=== PATIENT | female | born 2000 | race Hispanic/Latino ===

== ENCOUNTER 2018-06-12 14:42 | Emergency (ER) | payer SELFPAY ==
[2018-06-12] MEDS ORDERED: NA CHLORIDE 0.9% 1,000 ML ONE ×2 (16:30→17:10)
[2018-06-12 16:45] LABS: Urine Blood NEGATIVE (NEG); Urine Glucose NEGATIVE (NEG); Urine Protein TRACE (NEG)
[2018-06-12 16:49] LABS: Absolute Lymphocytes (CBC) 0.3 K/uL (0.7-4.9); Absolute Monocytes 0.3 K/uL (0.1-1.3); Absolute Neutrophil 6.8 K/uL (1.8-8.0); Basophils % 0.7 % (0-1.3); Eosinophils % 0.1 % (0-4.4); Hematocrit 40.1 % (36.0-45.0); Lymphocytes % 3.8 % (15.3-44.8); MCH 28.4 pg (27.0-35.0); MCV 82.5 fL (80-100); MPV 10.5 fL (7.6-11.3); RBC Red Blood Cell Count 4.86 M/uL (3.86-4.86)
[2018-06-12 17:14] LABS: BUN Blood Urea Nitrogen 13 mg/dL (7-18); Bicarbonate 24 mmol/L (21-32); Glucose Level 91 mg/dL (74-106); HCG, Quantitative 13937 mIU/mL (1-3); Potassium 3.9 mmol/L (3.5-5.1); Sodium Level 140 mmol/L (136-145)
[2018-06-12 18:46] LABS: Urine Bacteria >50 /HPF (<20); Urine Culture Reflex Order NOT NEEDED; Urine Mucus 3+ /HPF (NONE SEEN); Urine RBC <5 /HPF (NONE SEEN)
--- NOTE | 2018-06-12 19:01 | EDPHYS ---
Physician Documentation [facility] Name: Caroline Valentin Age: 17 yrs Sex: Female : 2000 Arrival Date: 06/12/2018 Time: 14:47 Bed 30 Private MD: None, None ED Physician Jonas Reece HPI: 06/12 18:16 This 17 yrs old Female presents to ER via Ambulatory with complaints of 6wks snw , Vomiting. 18:16 Onset: The symptoms/episode began/occurred suddenly. Associated signs and symptoms: snw Pertinent positives: vomiting. The patient has not experienced similar symptoms in the past. initial ob appt scheduled for Thursday. . 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 - Social history:: Smoking status: Patient/guardian denies using tobacco. - Ebola Screening: : No symptoms or risks identified at this time. ROS: 18:16 Constitutional: Negative for fever, chills, and weight loss, Eyes: Negative for injury, snw pain, redness, and discharge, ENT: Negative for injury, pain, and discharge, Neck: Negative for injury, pain, and swelling, Cardiovascular: Negative for chest pain, palpitations, and edema, Respiratory: Negative for shortness of breath, cough, wheezing, and pleuritic chest pain. 18:16 Back: Negative for injury and pain, : Negative for injury, bleeding, discharge, and swelling, MS/Extremity: Negative for injury and deformity, Skin: Negative for injury, rash, and discoloration, Neuro: Negative for headache, weakness, numbness, tingling, and seizure. 18:16 Abdomen/GI: Positive for nausea and vomiting. Exam: 18:15 Constitutional: This is a well developed, well nourished patient who is awake, alert, snw and in no acute distress. Head/Face: Normocephalic, atraumatic. Eyes: Pupils equal round and reactive to light, extra-ocular motions intact. Lids and lashes normal. Conjunctiva and sclera are non-icteric and not injected. Cornea within normal limits. Periorbital areas with no swelling, redness, or edema. ENT: Nares patent. No nasal discharge, no septal abnormalities noted. Tympanic membranes are normal and external auditory canals are clear. Oropharynx with no redness, swelling, or masses, exudates, or evidence of obstruction, uvula midline. Mucous membranes moist. Neck: Trachea midline, no thyromegaly or masses palpated, and no cervical lymphadenopathy. Supple, full range of motion without nuchal rigidity, or vertebral point tenderness. No Meningismus. Chest/axilla: Normal chest wall appearance and motion. Nontender with no deformity. No lesions are appreciated. Respiratory: Lungs have equal breath sounds bilaterally, clear to auscultation and percussion. No rales, rhonchi or wheezes noted. No increased work of breathing, no retractions or nasal flaring. Abdomen/GI: Soft, non-tender, with normal bowel sounds. No distension or tympany. No guarding or rebound. No evidence of tenderness throughout. Back: No spinal tenderness. No costovertebral tenderness. Full range of motion. Skin: Warm, dry with normal turgor. Normal color with no rashes, no lesions, and no evidence of cellulitis. MS/ Extremity: Pulses equal, no cyanosis. Neurovascular intact. Full, normal range of motion. Neuro: Awake and alert, GCS 15, oriented to person, place, time, and situation. Cranial nerves II-XII grossly intact. Motor strength 5/5 in all extremities. Sensory grossly intact. Cerebellar exam normal. Normal gait. 18:15 Cardiovascular: Rate: tachycardic, Rhythm: regular, Heart sounds: normal. Vital Signs: 14:51 BP 122 / 70; Pulse 122; Resp 16; Temp 97.1; Pulse Ox 98% ; Weight 52.16 kg; Height 5 la1 ft. 2 in. (157.48 cm); 16:42 BP 102 / 74; Pulse 110; Resp 17; Pulse Ox 100% on R/A; rv 17:00 BP 104 / 69; Pulse 103; Resp 16; Pulse Ox 100% on R/A; rv 17:45 BP 99 / 67; Pulse 111; Resp 18; Pulse Ox 100% on R/A; rv 19:29 BP 100 / 77; Pulse 97; Resp 16; Pulse Ox 100% on R/A; rv 14:51 Body Mass Index 21.03 (52.16 kg, 157.48 cm) la1 MDM: 17:19 Patient medically screened. snw 19:09 Data reviewed: vital signs, nurses notes. Data interpreted: Pulse oximetry: on room air snw is 100 %. Interpretation: normal. Counseling: I had a detailed discussion with the patient and/or guardian regarding: the historical points, exam findings, and any diagnostic results supporting the discharge/admit diagnosis, lab results, the need for outpatient follow up, to return to the emergency department if symptoms worsen or persist or if there are any questions or concerns that arise at home. Special discussion: Based on the history and exam findings, there is no indication for further emergent testing or inpatient evaluation. I discussed with the patient/guardian the need to see the OB Gyne specialist for further evaluation of the symptoms. 06/12 15:37 Order name: Quantitative Hcg; Complete Time: 17:19 snw 06/12 15:37 Order name: Abo/rh Typing; Complete Time: 17:19 snw 06/12 15:37 Order name: Basic Metabolic Panel; Complete Time: 17:19 snw 06/12 15:37 Order name: CBC with Diff; Complete Time: 17:19 snw 06/12 16:37 Order name: Urine Dipstick--Ancillary (enter results); Complete Time: 16:59 eb 06/12 16:37 Order name: Urine --Ancillary (enter results); Complete Time: 16:59 eb 06/12 15:37 Order name: Urine Test (obtain specimen); Complete Time: 16:25 snw 06/12 15:37 Order name: IV Saline Lock; Complete Time: 16:25 snw 06/12 15:37 Order name: Labs collected and sent; Complete Time: 16:25 snw 06/12 15:37 Order name: NPO; Complete Time: 16:24 snw 06/12 18:00 Order name: Urine Microscopic Only; Complete Time: 18:57 snw 06/12 15:37 Order name: Urine Dipstick-Ancillary (obtain specimen); Complete Time: 16:24 snw Administered Medications: 16:22 Drug: NS 0.9% 1000 ml Route: IV; Rate: 1 bolus; Site: right antecubital; rv 18:10 Follow up: IV Status: Completed infusion; IV Intake: 1000ml rv 18:00 Drug: NS 0.9% 1000 ml Route: IV; Rate: 1 bolus; Site: right antecubital; rv 19:28 Follow up: IV Status: Completed infusion rv 19:07 Drug: Rocephin 1 grams Route: IV; Rate: calculated rate; Site: right antecubital; tl3 Delivery: Primary tubing; 19:08 Follow up: IV Status: Completed infusion; IV Intake: 20ml tl3 19:28 Follow up: Response: No adverse reaction; IV Status: Completed infusion rv Disposition: 06/13 09:53 Co-signature as Attending Physician, Jonas Reece MD I agree with the assessment and kdr plan of care. Disposition: 06/12/18 19:01 Discharged to Home. Impression: Urinary tract infection, site not specified, state, Vomiting, unspecified, Dehydration. - Condition is Stable. - Discharge Instructions: Dehydration, Adult, and Urinary Tract Infection, Rehydration, Adult. - Prescriptions for Augmentin 875- 125 mg Oral Tablet - take 1 tablet by ORAL route every 12 hours for 10 days; 20 tablet. Vitamin 27- 0.8 mg Oral Tablet - take 1 tablet by ORAL route once daily; 60 tablet. promethazine 25 mg Oral Tablet - take 1 tablet by ORAL route every 6 hours As needed; 20 tablet. - Medication Reconciliation Form, Thank You Letter, Antibiotic Education, Prescription Opioid Use form. - Follow up: Private Physician; When: 1 - 2 days; Reason: Recheck today's complaints, Continuance of care, Re-evaluation by your physician. Follow up: Emergency Department; When: As needed; Reason: Worsening of condition. Signatures: Dispatcher [employer] EDMS Jonas Reece MD MD kdr Therrien, Shelly, AUTOMOBILE SALESMAN-C AUTOMOBILE SALESMAN-CsnJosue Addison RN RN la1 Niyah Crandall, RN RN tl3 Petr Rutherford, RN RN rv Corrections: (The following items were deleted from the chart) 06/12 19:31 19:01 06/12/2018 19:01 Discharged to Home. Impression: Urinary tract infection, site rv not specified; state; Vomiting, unspecified; Dehydration. Condition is Stable. Forms are Medication Reconciliation Form, Thank You Letter, Antibiotic Education, Prescription Opioid Use. Follow up: Private Physician; When: 1 - 2 days; Reason: Recheck today's complaints, Continuance of care, Re-evaluation by your physician. Follow up: Emergency Department; When: As needed; Reason: Worsening of condition. ximena
--- NOTE | 2018-06-12 19:01 | ER ---
Nurse's Notes [facility] Name: Caroline Valentin Age: 17 yrs Sex: Female : 2000 Arrival Date: 06/12/2018 Time: 14:47 Bed 30 Private MD: None, None Diagnosis: Urinary tract infection, site not specified; state;Vomiting, unspecified;Dehydration Presentation: 06/12 14:50 Presenting complaint: Patient states: I am six weeks and have been vomiting la1 since this morning. Transition of care: patient was not received from another setting of care. Onset of symptoms was June 12, 2018. Risk Assessment: Do you want to hurt yourself or someone else? Patient reports no desire to harm self or others. Initial Sepsis Screen: Does the patient meet any 2 criteria? No. Patient's initial sepsis screen is negative. Does the patient have a suspected source of infection? No. Patient's initial sepsis screen is negative. Care prior to arrival: None. 14:50 Method Of Arrival: Ambulatory la1 14:50 Acuity: SHAWANDA 3 la1 Triage Assessment: 16:41 General: Appears in no apparent distress. comfortable, Behavior is calm, cooperative. rv GI: Reports nausea, vomiting. 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 - Social history:: Smoking status: Patient/guardian denies using tobacco. - Ebola Screening: : No symptoms or risks identified at this time. Screenin:41 Abuse screen: Denies threats or abuse. Denies injuries from another. Nutritional rv screening: No deficits noted. Tuberculosis screening: No symptoms or risk factors identified. Fall Risk None identified. Assessment: 16:40 General: Appears in no apparent distress. comfortable, Behavior is calm, cooperative. rv Pain: Complains of pain in lower abdomen Quality of pain is described as crampy. Neuro: Level of Consciousness is awake, alert, obeys commands, Oriented to person, place, time, situation. Cardiovascular: Capillary refill < 3 seconds. Respiratory: Airway is patent. GI: Abdomen is round. : No signs and/or symptoms were reported regarding the genitourinary system. EENT: No signs and/or symptoms were reported regarding the EENT system. Derm: Skin is intact. Musculoskeletal: No signs and/or symptoms reported regarding the musculoskeletal system. 18:12 Reassessment: Patient appears in no apparent distress at this time. rv Vital Signs: 14:51 BP 122 / 70; Pulse 122; Resp 16; Temp 97.1; Pulse Ox 98% ; Weight 52.16 kg; Height 5 la1 ft. 2 in. (157.48 cm); 16:42 BP 102 / 74; Pulse 110; Resp 17; Pulse Ox 100% on R/A; rv 17:00 BP 104 / 69; Pulse 103; Resp 16; Pulse Ox 100% on R/A; rv 17:45 BP 99 / 67; Pulse 111; Resp 18; Pulse Ox 100% on R/A; rv 19:29 BP 100 / 77; Pulse 97; Resp 16; Pulse Ox 100% on R/A; rv 14:51 Body Mass Index 21.03 (52.16 kg, 157.48 cm) la1 ED Course: 14:47 Patient arrived in ED. mr 14:47 None, None is Private Physician. mr 14:50 Triage completed. la1 14:51 Arm band placed on right wrist. la1 15:36 Tomasa Medrano FNP-C [facility]. snw 15:36 Jonas Reece MD is Attending Physician. snw 16:15 Inserted saline lock: 20 gauge in right antecubital area, using aseptic technique. rv Blood collected. 16:15 Initial lab(s) drawn, by oh, sent to lab. rv 16:25 CBC with Diff Sent. rv 16:25 Quantitative Hcg Sent. rv 16:25 Abo/rh Typing Sent. rv 16:41 Patient has correct armband on for positive identification. Bed in low position. Call rv light in reach. Side rails up X 1. Adult w/ patient. Pulse ox on. NIBP on. 19:30 No provider procedures requiring assistance completed. IV discontinued, bleeding rv controlled, No redness/swelling at site. Pressure dressing applied. Administered Medications: 16:22 Drug: NS 0.9% 1000 ml Route: IV; Rate: 1 bolus; Site: right antecubital; rv 18:10 Follow up: IV Status: Completed infusion; IV Intake: 1000ml rv 18:00 Drug: NS 0.9% 1000 ml Route: IV; Rate: 1 bolus; Site: right antecubital; rv 19:28 Follow up: IV Status: Completed infusion rv 19:07 Drug: Rocephin 1 grams Route: IV; Rate: calculated rate; Site: right antecubital; tl3 Delivery: Primary tubing; 19:08 Follow up: IV Status: Completed infusion; IV Intake: 20ml tl3 19:28 Follow up: Response: No adverse reaction; IV Status: Completed infusion rv Intake: 18:10 IV: 1000ml; Total: 1000ml. rv 19:08 IV: 20ml; Total: 1020ml. tl3 Outcome: 19:01 Discharge ordered by . snw 19:31 Discharged to home ambulatory. rv 19:31 Condition: improved 19:31 Discharge instructions given to patient, Instructed on discharge instructions, follow up and referral plans. medication usage, Demonstrated understanding of instructions, follow-up care, medications, Prescriptions given X 3. 19:31 Patient left the ED. rv Signatures: Tomasa Medrano, SALMON GILLNET VESSEL OPERATOR-C SALMON GILLNET VESSEL OPERATOR-Csnw Joyce Curtis Lee RN RN la1 Niyah Crandall, RN RN tl3 Petr Rutherford RN RN rv
[2018-06-12] MEDS ORDERED: CEFTRIAXONE/SWI 1gm 1 GM/10 ML SYR ONE (19:11)
[2018-06-12] MEDS ORDERED: PROMETHAZINE 25 MG/ML VIAL ONE (19:19)
== END 2018-06-12 19:31 | disposition home or self-care (01) ==
LOC: ER 14:42
DX: O21.9 Vomiting of pregnancy, unspecified (principal); O23.41 Unspecified infection of urinary tract in pregnancy, first trimester; O26.891 Other specified pregnancy related conditions, first trimester; E86.0 Dehydration; Z3A.01 Less than 8 weeks gestation of pregnancy
CPT/HCPCS: 36415; 80048; 81003; 81015; 81025; 84702; 85025; 86900; 86901; 96361; 96374; 99284; J0696; J2550; J7030

== ENCOUNTER 2018-09-02 08:57 | Emergency (ER) | payer SELFPAY ==
--- OUTSIDE RECORDS SUMMARY | 2018-09-02 08:59 | XMS REPORT ---
:2000 [facility] Address [address] [place] [address] Dr. Dickson [address] [place] [id number] Care Team Providers Name Role Phone Unavailable Unavailable Unavailable Problems This patient has no known problems. Allergies, Adverse Reactions, Alerts This patient has no known allergies or adverse reactions. Medications This patient has no known medications.
[2018-09-02 09:41] LABS: Urine Blood NEGATIVE (NEG); Urine Glucose 2+ (NEG); Urine Protein NEGATIVE (NEG); Urine Specific Gravity 1.025 (1.005-1.030)
[2018-09-02] MEDS ORDERED: NA CHLORIDE 0.9% 1,000 ML ONE (09:41)
[2018-09-02 09:52] LABS: Urine Bacteria >50 /HPF (<20); Urine Culture Reflex Order NOT NEEDED; Urine RBC NONE SEEN /HPF (NONE SEEN)
[2018-09-02 10:06] LABS: Absolute Lymphocytes (CBC) 0.9 K/uL (0.7-4.9); Absolute Monocytes 0.5 K/uL (0.1-1.3); Absolute Neutrophil 6.1 K/uL (1.8-8.0); Basophils % 0.3 % (0-1.3); Eosinophils % 0.7 % (0-4.4); Hematocrit 37.2 % (36.0-45.0); Lymphocytes % 12.3 % (15.3-44.8); MPV 10.2 fL (7.6-11.3); RBC Red Blood Cell Count 4.36 M/uL (3.86-4.86)
[2018-09-02] MEDS ORDERED: CEFTRIAXONE/SWI 1gm 1 GM/10 ML SYR ONE (10:27)
[2018-09-02 11:00] LABS: BUN Blood Urea Nitrogen 8 mg/dL (7-18); Bicarbonate 27 mmol/L (21-32); Glucose Level 93 mg/dL (74-106); HCG, Quantitative 20076 mIU/mL (1-3); Potassium 3.3 mmol/L (3.5-5.1); Sodium Level 140 mmol/L (136-145)
--- NOTE | 2018-09-02 11:11 | ER ---
Nurse's Notes [facility] Name: Caroline Valentin Age: 18 yrs Sex: Female : 2000 Arrival Date: 09/02/2018 Time: 09:02 Bed 19 Private MD: None, None Diagnosis: Urinary tract infection and 2nd trimester Presentation: 09/02 09:09 Risk Assessment: Do you want to hurt yourself or someone else? Patient reports no tw2 desire to harm self or others. Care prior to arrival: None. 09:14 Presenting complaint: Patient states: LLQ pain that began last night. Pt reports she is ss 19 weeks and has had no care. Transition of care: patient was not received from another setting of care. Onset of symptoms was September 01, 2018. Initial Sepsis Screen: Does the patient meet any 2 criteria? No. Patient's initial sepsis screen is negative. Does the patient have a suspected source of infection? No. Patient's initial sepsis screen is negative. 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 - Social history:: Smoking status: . - Ebola Screening: : Patient denies travel to an Ebola-affected area in the 21 days before illness onset. Screenin:07 Abuse screen: Denies threats or abuse. Nutritional screening: No deficits noted. tw2 Tuberculosis screening: No symptoms or risk factors identified. Fall Risk None identified. Assessment: 09:16 General: Appears uncomfortable, slender, Behavior is calm, cooperative, appropriate for tw2 age. Pain: Complains of pain in left lower quadrant. Neuro: Level of Consciousness is awake, alert, obeys commands, Oriented to person, place, time, situation. Cardiovascular: Heart tones S1 S2 Capillary refill < 3 seconds Patient's skin is warm and dry. Respiratory: Airway is patent Respiratory effort is even, unlabored, Respiratory pattern is regular, symmetrical, Breath sounds are clear bilaterally. GI: Abdomen is flat, Bowel sounds present X 4 quads. Reports lower abdominal pain. GI: Patient currently denies diarrhea, nausea, vomiting. : No signs and/or symptoms were reported regarding the genitourinary system. EENT: No signs and/or symptoms were reported regarding the EENT system. Derm: No signs and/or symptoms reported regarding the dermatologic system. Musculoskeletal: Range of motion: intact in all extremities. 10:20 Reassessment: No changes from previously documented assessment. General: Appears in no aj1 apparent distress. uncomfortable, Behavior is calm, cooperative, appropriate for age. Pain: Complains of pain in left lower quadrant Quality of pain is described as crampy. Neuro: Level of Consciousness is awake, alert, obeys commands, Oriented to person, place, time, situation. Cardiovascular: Patient's skin is warm and dry. Respiratory: Airway is patent Respiratory effort is even, unlabored, Respiratory pattern is regular, symmetrical. Derm: Skin is pink, warm \T\ dry. normal. Musculoskeletal: Circulation, motion, and sensation intact. Vital Signs: 09:14 Resp 15; Weight 52.16 kg; Height 5 ft. 2 in. (157.48 cm); Pain 7/10; ss 09:16 BP 115 / 95; Pulse 108; Temp 97.8(TE); tw2 10:22 BP 113 / 75; Pulse 89; Resp 18; Pulse Ox 100% on R/A; aj1 09:14 Body Mass Index 21.03 (52.16 kg, 157.48 cm) ED Course: 09:02 Patient arrived in ED. sb2 09:02 None, None is Private Physician. sb2 09:07 Adriana Morrell RN is Primary Nurse. tw2 09:08 Bed in low position. Call light in reach. Pulse ox on. NIBP on. tw2 09:09 Arm band placed on. tw2 09:14 T[facility] Medrano [facility]-C [facility] snw 09:14 Jonas Reece MD is Attending Physician. snw 09:15 Triage completed. ss 09:27 Urine Microscopic Only Sent. tw2 09:55 Report given to DONTRELL Cordero. tw2 10:12 Initial lab(s) drawn, by me, sent to lab. Urine collected: clean catch specimen, clear. mh5 Inserted saline lock: 20 gauge in right antecubital area, using aseptic technique. Blood collected. 10:13 Quantitative Hcg Sent. 5 10:13 Abo/rh Typing Sent. [facility] 10:13 Basic Metabolic Panel Sent. [facility] 10:13 CBC with Diff Sent. [facility] 10:13 Urine Culture Sent. 5 10:13 Urine Microscopic Only Sent. 5 11:07 OB Complete In Process Unspecified. EDMS 11:44 No provider procedures requiring assistance completed. IV discontinued, intact, ss bleeding controlled, No redness/swelling at site. Pressure dressing applied. Administered Medications: 10:13 Drug: NS 0.9% 1000 ml Route: IV; Rate: 1 bolus; Site: right antecubital; [facility] 10:18 Drug: Rocephin 1 grams Route: IV; Rate: calculated rate; Site: right antecubital; [facility] Outcome: 11:10 Discharge ordered by MD. snw 11:44 Discharged to home ambulatory, with family. ss 11:44 Condition: good 11:44 Discharge instructions given to patient, family, Instructed on discharge instructions, follow up and referral plans. medication usage, Demonstrated understanding of instructions, follow-up care, medications, Prescriptions given X 3. 11:45 Patient left the ED. ss Addendum: 09/05/2018 11:01 Addendum: Culture Results: Positive urine culture. No further action required. Bacteria i w sensitive to prescribed antibiotic. Signatures: Dispatcher [employer] Pita Ruiz, DONTRELL RN aj1 Tomasa Medrano, FINANCIAL RECORDING CLERK-C FINANCIAL RECORDING CLERK-Csnw Erin Landeros RN RN Julee Monaco RN RN ss Wise, Tara, RN RN tw2 Belkys Hoover Yulisa Woodward2
--- NOTE | 2018-09-02 11:11 | EDPHYS ---
Physician Documentation [facility] Name: Caroline Valentin Age: 18 yrs Sex: Female : 2000 Arrival Date: 09/02/2018 Time: 09:02 Bed 19 Private MD: None, None ED Physician Jonas Reece HPI: 09/02 09:39 This 18 yrs old Female presents to ER via Ambulatory with complaints of LEFT snw SIDE PAIN 19WK PG. 09:39 The patient presents with abdominal pain in the left lower quadrant. Onset: The snw symptoms/episode began/occurred suddenly. The symptoms radiate to left back. Associated signs and symptoms: none. The symptoms are described as sharp. Severity of pain: At its worst the pain was moderate. The patient has not experienced similar symptoms in the past. The patient has not recently seen a physician, Pt about 20 weeks , no care, states she from the baby's father and did not have money to see OB. 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 - Social history:: Smoking status: . - Ebola Screening: : Patient denies travel to an Ebola-affected area in the 21 days before illness onset. ROS: 09:37 Eyes: Negative for injury, pain, redness, and discharge, ENT: Negative for injury, snw pain, and discharge, Neck: Negative for injury, pain, and swelling, Cardiovascular: Negative for chest pain, palpitations, and edema, Respiratory: Negative for shortness of breath, cough, wheezing, and pleuritic chest pain, Back: Negative for injury and pain, : Negative for injury, bleeding, discharge, and swelling, MS/Extremity: Negative for injury and deformity, Skin: Negative for injury, rash, and discoloration, Neuro: Negative for headache, weakness, numbness, tingling, and seizure. 09:37 Constitutional: Positive for malaise. 09:37 Abdomen/GI: Positive for abdominal pain, of the left lower quadrant. Exam: 09:34 Constitutional: This is a well developed, well nourished patient who is awake, alert, snw and in no acute distress. + pallor Head/Face: Normocephalic, atraumatic. Eyes: Pupils equal round and reactive to light, extra-ocular motions intact. Lids and lashes normal. Conjunctiva and sclera are non-icteric and not injected. Cornea within normal limits. Periorbital areas with no swelling, redness, or edema. ENT: Nares patent. No nasal discharge, no septal abnormalities noted. Tympanic membranes are normal and external auditory canals are clear. Oropharynx with no redness, swelling, or masses, exudates, or evidence of obstruction, uvula midline. Mucous membranes moist. Neck: Trachea midline, no thyromegaly or masses palpated, and no cervical lymphadenopathy. Supple, full range of motion without nuchal rigidity, or vertebral point tenderness. No Meningismus. Chest/axilla: Normal chest wall appearance and motion. Nontender with no deformity. No lesions are appreciated. Respiratory: Lungs have equal breath sounds bilaterally, clear to auscultation and percussion. No rales, rhonchi or wheezes noted. No increased work of breathing, no retractions or nasal flaring. Abdomen/GI: Soft, Gravid with fundal ht c/w about 20 wk gestation. tender to left lower quad, with normal bowel sounds. No distension or tympany. No guarding or rebound. Back: No spinal tenderness. No costovertebral tenderness. Full range of motion. MS/ Extremity: Pulses equal, no cyanosis. Neurovascular intact. Full, normal range of motion. Neuro: Awake and alert, GCS 15, oriented to person, place, time, and situation. Cranial nerves II-XII grossly intact. Motor strength 5/5 in all extremities. Sensory grossly intact. Cerebellar exam normal. Normal gait. 09:34 Cardiovascular: Rate: tachycardic, Rhythm: regular. 09:34 Skin: Appearance: normal except for affected area, Color: pale. Vital Signs: 09:14 Resp 15; Weight 52.16 kg; Height 5 ft. 2 in. (157.48 cm); Pain 7/10; ss 09:16 BP 115 / 95; Pulse 108; Temp 97.8(TE); tw2 10:22 BP 113 / 75; Pulse 89; Resp 18; Pulse Ox 100% on R/A; aj1 09:14 Body Mass Index 21.03 (52.16 kg, 157.48 cm) ss MDM: 09:14 Patient medically screened. snw 11:11 Data reviewed: vital signs, nurses notes. Data interpreted: Pulse oximetry: on room air snw is 100 %. Counseling: I had a detailed discussion with the patient and/or guardian regarding: the historical points, exam findings, and any diagnostic results supporting the discharge/admit diagnosis. 11:12 Response to treatment: the patient's symptoms have mildly improved after treatment. snw Special discussion: Based on the patient's Hx, exam, and Dx evaluation, there is no indication for emergent surgery or inpatient Tx. It is understood by the patient/guardian that if the Sx's persist or worsen they need to return immediately for re-evaluation. Based on the history and exam findings, there is no indication for further emergent testing or inpatient evaluation. I discussed with the patient/guardian the need to see the OB Gyne specialist for further evaluation of the symptoms. 09/02 09:22 Order name: Urine Dipstick--Ancillary (enter results); Complete Time: 09:45 09/02 09:22 Order name: Urine --Ancillary (enter results); Complete Time: 09:45 09/02 09:23 Order name: Urine Culture 09/02 09:23 Order name: Urine Microscopic Only 09/02 09:25 Order name: Quantitative Hcg; Complete Time: 11:05 w 09/02 09:25 Order name: Abo/rh Typing; Complete Time: 11:05 w 09/02 09:22 Order name: Urine Dipstick-Ancillary (obtain specimen); Complete Time: 09:22 09/02 09:22 Order name: Urine Test (obtain specimen); Complete Time: 09:22 em09/02 09:25 Order name: Basic Metabolic Panel; Complete Time: 11:05 snw 09/02 09:25 Order name: CBC with Diff w 09/02 11:04 Order name: OB Complete; Complete Time: 14:12 EDMS 09/02 09:23 Order name: Urine Dipstick-Ancillary (obtain specimen); Complete Time: 09:27 w 09/02 09:25 Order name: IV Saline Lock; Complete Time: 10:13 snw 09/02 09:25 Order name: Labs collected and sent; Complete Time: 10: snw 09/02 09:25 Order name: NPO; Complete Time: : snw Administered Medications: 10:13 Drug: NS 0.9% 1000 ml Route: IV; Rate: 1 bolus; Site: right antecubital; aj1 10:18 Drug: Rocephin 1 grams Route: IV; Rate: calculated rate; Site: right antecubital; aj1 Disposition: 14:08 Co-signature as Attending Physician, Jonas Reece MD I agree with the assessment and kdr plan of care. Disposition: 09/02/18 11:10 Discharged to Home. Impression: Urinary tract infection and 2nd trimester . - Condition is Stable. - Discharge Instructions: Abdominal Pain During , Constipation, Adult, and Urinary Tract Infection, Second Trimester of , [id number]. - Prescriptions for Augmentin 875- 125 mg Oral Tablet - take 1 tablet by ORAL route every 12 hours for 10 days; 20 tablet. Vitamin 27- 0.8 mg Oral Tablet - take 1 tablet by ORAL route once daily; 60 tablet. Miralax 17 gram/dose Oral - take 1 packet by ORAL route once daily dilute powder in 8 ounces of water or juice; 1 box. - Medication Reconciliation Form, Thank You Letter, Antibiotic Education, Prescription Opioid Use form. - Follow up: Private Physician; When: 2 - 3 days; Reason: Recheck today's complaints, Continuance of care, Re-evaluation by your physician. Follow up: Emergency Department; When: As needed; Reason: Worsening of condition. Signatures: Dispatcher [employer] [facility] Pita Philip, RN RN aj1 Jonas Reece MD MD kdr Therrien, Shelly, DIRECTOR EXTERNAL COMMUNICATIONS-C DIRECTOR EXTERNAL COMMUNICATIONS-Kai Chavez em1 Julee Monaco RN RN ss Wise, Tara, RN RN tw2 Corrections: (The following items were deleted from the chart) 11:04 10:16 OB Limited+US.RAD.BRZ ordered. [facility] 11:45 11:10 09/02/2018 11:10 Discharged to Home. Impression: Urinary tract infection and 2nd ss trimester . Condition is Stable. Discharge Instructions: Abdominal Pain During , and Urinary Tract Infection, Second Trimester of , [id number]. Prescriptions for Augmentin 875-125 mg Oral Tablet - take 1 tablet by ORAL route every 12 hours for 10 days; 20 tablet, Vitamin 27-0.8 mg Oral Tablet - take 1 tablet by ORAL route once daily; 60 tablet. and Forms are Medication Reconciliation Form, Thank You Letter, Antibiotic Education, Prescription Opioid Use. Follow up: Private Physician; When: 2 - 3 days; Reason: Recheck today's complaints, Continuance of care, Re-evaluation by your physician. Follow up: Emergency Department; When: As needed; Reason: Worsening of condition. snw
--- NOTE | 2018-09-02 11:41 | RAD REPORT ---
EXAM DESCRIPTION: US - OB Complete - ir CLINICAL HISTORY: , abdominal pain COMPARISON: None. FINDINGS: A single cephalic presenting gestation is identified. The 4 chamber heart view has a jeff l appearance. Heart rate normal. The intracranial contents and spine are grossly normal. A lef t-sided stomach bubble is seen with normal appearing bladder and kidneys. The 3 vessel cord, inserti on site and anterior abdominal wall have normal appearance. Anatomic assessment was somewhat limited by age. Anatomy is as expected for 17 week gestational age. measurements are as follows: BPD:4.01 Centimeters 18 weeks 1 day HC:14.62 Centimeters 17 weeks 6 days AC:11.98 Centimeters 17 weeks 5 days HL:2.26 Centimeters 17 weeks 0 days FL:2.38 Centimeters 17 weeks 1 day The estimated gestational age (EGA) is 17 weeks 4 days with an DOROTHY of 02/06/2019. ratios are n ormal or within acceptable limits. The placenta is grade 0, posterior in location. No low-lying or pl acenta previa. The amniotic fluid volume is normal. No maternal adnexa abnormality. Prominent peristalsing bowel noted. IMPRESSION: 1. Single, cephalic gestation with an EGA of 17 weeks 4 days and an DOROTHY of the 9. 2. No abnormalities are identifiable. Anatomy is as expected for 17 week gestational age. ratios are normal or within acceptable limits. 3. Grade 0, posterior placenta with no low-lying or placenta previa. 4. Amniotic fluid volume is normal.
== END 2018-09-02 11:45 | disposition home or self-care (01) ==
LOC: ER 08:57
DX: O23.42 Unspecified infection of urinary tract in pregnancy, second trimester (principal); Z3A.20 20 weeks gestation of pregnancy
CPT/HCPCS: 36415; 76805; 80048; 81003; 81015; 81025; 84702; 85025; 86900; 86901; 87077; 87086; 87088; 87186; 96374; 99284; J0696; J7030

== ENCOUNTER 2018-10-29 09:41 | Emergency (ER) | payer MEDICAID, OTHER ==
--- OUTSIDE RECORDS SUMMARY | 2018-10-29 09:43 | XMS REPORT ---
:2000 [facility] Address [address] [place] [address] Dr. Dickson [address] [place] [id number] Care Team Providers Name Role Phone Unavailable Unavailable Unavailable Problems This patient has no known problems. Allergies, Adverse Reactions, Alerts This patient has no known allergies or adverse reactions. Medications This patient has no known medications.
[2018-10-29 10:37] LABS: Urine Blood NEGATIVE (NEG); Urine Glucose NEGATIVE (NEG); Urine Protein NEGATIVE (NEG); Urine Specific Gravity 1.025 (1.005-1.030); Urine pH 7.5 (5.0-7.0)
[2018-10-29] MEDS ORDERED: MORPHINE 2 MG/ML SYR ONE (10:37)
[2018-10-29] MEDS ORDERED: ONDANSETRON 4 MG/2 ML VIAL ONE (10:37)
[2018-10-29 10:40] LABS: Urine Bacteria 20-50 /HPF (<20); Urine Culture Reflex Order REFLEXED; Urine RBC <5 /HPF (NONE SEEN)
[2018-10-29 10:43] LABS: Absolute Lymphocytes (CBC) 1.8 K/uL (0.7-4.9); Absolute Monocytes 0.6 K/uL (0.1-1.3); Absolute Neutrophil 5.3 K/uL (1.8-8.0); Basophils % 0.3 % (0-1.3); Eosinophils % 1.1 % (0-4.4); Hematocrit 31.9 % (36.0-45.0); MPV 10.3 fL (7.6-11.3); Monocytes % 8.2 % (3.3-12.3); RBC Red Blood Cell Count 3.85 M/uL (3.86-4.86)
[2018-10-29 10:58] LABS: ALT/SGPT 20 U/L (12-78); AST/SGOT 17 U/L (15-37); Alkaline Phosphatase 76 U/L (45-117); BUN Blood Urea Nitrogen 8 mg/dL (7-18); Bicarbonate 26 mmol/L (21-32); Bilirubin Direct < 0.1 mg/dL (0-0.2); Bilirubin Total 0.2 mg/dL (0.2-1.0); Glucose Level 82 mg/dL (74-106); Lipase 159 U/L (73-393); Potassium 3.8 mmol/L (3.5-5.1); Sodium Level 141 mmol/L (136-145)
--- NOTE | 2018-10-29 11:21 | RAD REPORT ---
EXAM DESCRIPTION: US - Abdomen Exam Limited - 10/29/2018 11:02 am CLINICAL HISTORY: Abdominal pain. Right flank pain COMPARISON: None. FINDINGS: The gallbladder is contracted. The patient was not NPO. This limits evaluation. A gallstone is not seen. Gallbladder wall is not thickened. Biliary tree is normal caliber. Mild right hydronephrosis is seen. IMPRESSION: Grossly normal gallbladder ultrasound Mild right hydronephrosis. Given the this can be a normal finding. Pathology can also resul t in this appearance
--- NOTE | 2018-10-29 11:57 | ER ---
Nurse's Notes [facility] Name: Caroline Valentin Age: 18 yrs Sex: Female : 2000 Arrival Date: 10/29/2018 Time: 09:43 Bed 19 Private MD: Diagnosis: Muscle spasm of back;Urinary tract infection, site not specified;Other abdominal pain Presentation: 10/29 10:12 Presenting complaint: Patient states: right abd pain, right flank pain, radiating to iw right leg X 3 days denies injury, denies urinary symptoms, denies vaginal bleeding, denies n/v, pt is approx 6 months . Transition of care: patient was not received from another setting of care. Onset of symptoms was October 26, 2018. Risk Assessment: Do you want to hurt yourself or someone else? Patient reports no desire to harm self or others. Initial Sepsis Screen: Does the patient meet any 2 criteria? No. Patient's initial sepsis screen is negative. Does the patient have a suspected source of infection? No. Patient's initial sepsis screen is negative. Care prior to arrival: None. 10:12 Method Of Arrival: Wheelchair iw 10:12 Acuity: SHAWANDA 3 iw Triage Assessment: 12:13 General: Appears in no apparent distress. Behavior is calm, cooperative. 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 - Social history:: Smoking status: Patient/guardian denies using tobacco. - Ebola Screening: : Patient negative for fever greater than or equal to 101.5 degrees Fahrenheit, and additional compatible Ebola Virus Disease symptoms Patient denies exposure to infectious person Patient denies travel to an Ebola-affected area in the 21 days before illness onset No symptoms or risks identified at this time. Screenin:12 Abuse screen: Denies threats or abuse. Denies injuries from another. Nutritional iw screening: No deficits noted. Tuberculosis screening: No symptoms or risk factors identified. Fall Risk None identified. Assessment: 10:30 General: Appears uncomfortable, Behavior is cooperative. Pain: Complains of pain in iw right lower quadrant and right upper quadrant and right flank Pain radiates to right low back. Neuro: Level of Consciousness is awake, alert, obeys commands, Moves all extremities. Full function. Cardiovascular: Patient's skin is warm and dry. Respiratory: Respiratory effort is even, unlabored, Respiratory pattern is regular. GI: Reports lower abdominal pain. : Denies burning with urination, vaginal bleeding. Derm: Skin is intact, is healthy with good turgor. Musculoskeletal: Range of motion: intact in all extremities. 12:12 Reassessment: Patient appears in no apparent distress at this time. Patient and/or iw family updated on plan of care and expected duration. Pain level reassessed. Patient is alert, oriented x 3, equal unlabored respirations, skin warm/dry/pink. Patient states feeling better. Patient states symptoms have improved. Vital Signs: 10:16 BP 119 / 83; Pulse 80; Resp 16 S; Pulse Ox 100% on R/A; Weight 54.43 kg; Height 5 ft. 2 iw in. (157.48 cm); Pain 9/10; 10:16 Body Mass Index 21.95 (54.43 kg, 157.48 cm) iw Vitals: 11:56 Heart Tones 160 bpm. iw ED Course: 09:43 Patient arrived in ED. rg4 10:02 Edgard Lopez PA is PHCP. [facility] 10:02 Jonas Reece MD is Attending Physician. [facility] 10:03 Mj Cerrato LVN is Primary Nurse. em 10:15 Triage completed. iw 10:18 Arm band placed on. iw 11:02 US Abdomen Limited In Process Unspecified. EDMS 12:12 Patient has correct armband on for positive identification. iw 12:12 No provider procedures requiring assistance completed. IV discontinued, intact, iw bleeding controlled, No redness/swelling at site. Pressure dressing applied. Administered Medications: 10:36 Drug: morphine 2 mg Route: IVP; Site: right antecubital; iw 12:16 Follow up: Response: No adverse reaction; Pain is decreased iw 10:36 Drug: Zofran 4 mg Route: IVP; Site: right antecubital; iw 12:16 Follow up: Response: No adverse reaction iw Outcome: 11:57 Discharge ordered by . kee 12:13 Discharged to home via wheelchair, with family. iw 12:13 Condition: good 12:13 Discharge instructions given to patient, family, Instructed on discharge instructions, follow up and referral plans. medication usage, Demonstrated understanding of instructions, follow-up care, medications, Prescriptions given X 2. 12:13 Patient left the ED. iw Signatures: Dispatcher [employer] EDEdgard Hunter PA PA jmm Munoz, Edgar, TRIAL COURT JUDGE TRIAL COURT JUDGE Erin Murdock, RN RN Anisha Menchaca rg4
--- NOTE | 2018-10-29 11:57 | EDPHYS ---
Physician Documentation [facility] Name: Caroline Valentin Age: 18 yrs Sex: Female : 2000 Arrival Date: 10/29/2018 Time: 09:43 Bed 19 Private MD: ED Physician Jonas Reece HPI: 10/29 10:10 This 18 yrs old Female presents to ER via Wheelchair with complaints of Flank jmm Pain, Leg Pain. 10:10 The patient complains of pain in the right flank. Onset: The symptoms/episode jmm began/occurred gradually, 3 day(s) ago. Modifying factors: the symptoms are aggravated by movement, palpation/percussion. Associated signs and symptoms: Pertinent negatives: diarrhea, dysuria, fever, hematuria, vomiting. This is a 18 year old female approx 25 weeks IUP that presents to the ED with complaints of right flank pain which radiates down her right leg. Denies numbness or weakness to the leg. Denies urinary complaints. Denies fever, denies vomiting, denies diarrhea. Patient also complaints of right sided abdominal pain. The patient stated she was previously on bedrest due to lower abdominal and pelvic pain during her . Patient states she began to feel better 3 days ago and began regular activity. Pain to her back began at the same time along with abdominal pain. . 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 - Social history:: Smoking status: Patient/guardian denies using tobacco. - Ebola Screening: : Patient negative for fever greater than or equal to 101.5 degrees Fahrenheit, and additional compatible Ebola Virus Disease symptoms Patient denies exposure to infectious person Patient denies travel to an Ebola-affected area in the 21 days before illness onset No symptoms or risks identified at this time. ROS: 10:16 Constitutional: Negative for fever, chills, and weight loss, Cardiovascular: Negative jmm for chest pain, palpitations, and edema, Respiratory: Negative for shortness of breath, cough, wheezing, and pleuritic chest pain. 10:16 Abdomen/GI: Positive for abdominal pain, Negative for vomiting, diarrhea. 10:16 Back: Positive for pain with movement, flank pain. 10:16 MS/extremity: Positive for pain. 10:16 All other systems are negative. Exam: 10:16 Constitutional: This is a well developed, well nourished patient who is awake, alert, jmm and in no acute distress. Head/Face: atraumatic. Eyes: EOMI, no conjunctival erythema appreciated ENT: Moist Mucus Membranes Neck: Trachea midline, Supple Chest/axilla: Normal chest wall appearance and motion. 10:16 Cardiovascular: Rate: normal, Rhythm: regular. 10:16 Abdomen/GI: Inspection: gravid appearance, is noted, Bowel sounds: normal, Palpation: soft, mild abdominal tenderness, in the right upper quadrant and right lower quadrant. 10:16 Back: CVA tenderness, that is moderate, is noted on the right, muscle spasm, is appreciated in the right low back. 10:16 Musculoskeletal/extremity: ROM: intact in all extremities. 10:16 Skin: Appearance: Color: normal in color. 10:16 Neuro: Orientation: is normal, Mentation: is normal, Memory: is normal. 10:16 Psych: Behavior/mood is pleasant, cooperative. Vital Signs: 10:16 BP 119 / 83; Pulse 80; Resp 16 S; Pulse Ox 100% on R/A; Weight 54.43 kg; Height 5 ft. 2 iw in. (157.48 cm); Pain 9/10; 10:16 Body Mass Index 21.95 (54.43 kg, 157.48 cm) MDM: 10:10 Patient medically screened. [facility] 11:55 Data reviewed: vital signs, nurses notes. Counseling: I had a detailed discussion with [facility] the patient and/or guardian regarding: the historical points, exam findings, and any diagnostic results supporting the discharge/admit diagnosis, the need for outpatient follow up, to return to the emergency department if symptoms worsen or persist or if there are any questions or concerns that arise at home. 11:55 ED course: HPI appears consistent with musculoskeletal pain. Pain is radiated to the [facility] right leg. I do not suspect cord compression or cauda equina. Extensor hallucis longus intact. CBC normal. Patient has no GI symptoms. US is negative. I discussed signs and symptoms of appendicitis along with strict return precautions do to the patient complaint of right sided pain along with strict return precautions. Patient will closely follow up with hopper feeder and resume bedrest. . 10/29 10:11 Order name: Basic Metabolic Panel; Complete Time: 10:59 [facility] 10/29 10:11 Order name: CBC with Diff; Complete Time: 10:58 [facility] 10/29 10:11 Order name: Creatinine for Radiology; Complete Time: 10:58 [facility] 10/29 10:11 Order name: Hepatic Function; Complete Time: 10:59 [facility] 10/29 10:11 Order name: Lipase; Complete Time: 10:59 [facility] 10/29 10:12 Order name: Urine Microscopic Only; Complete Time: 10:42 [facility] 10/29 10:11 Order name: IV Saline Lock; Complete Time: 10:35 [facility] 10/29 10:11 Order name: Labs collected and sent; Complete Time: 10:35 [facility] 10/29 10:11 Order name: US Abdomen Limited; Complete Time: 11:22 [facility] 10/29 10:29 Order name: Urine Dipstick--Ancillary (enter results); Complete Time: 10:42 10/29 10:29 Order name: Urine --Ancillary (enter results); Complete Time: 10:42 10/29 10:42 Order name: Urine Culture [facility] 10/29 10:11 Order name: Urine Dipstick-Ancillary (obtain specimen); Complete Time: 10:21 [facility] 10/29 10:12 Order name: Heart Tones; Complete Time: 11:42 [facility] Administered Medications: 10:36 Drug: morphine 2 mg Route: IVP; Site: right antecubital; iw 12:16 Follow up: Response: No adverse reaction; Pain is decreased iw 10:36 Drug: Zofran 4 mg Route: IVP; Site: right antecubital; iw 12:16 Follow up: Response: No adverse reaction Disposition: 10/29/18 11:57 Discharged to Home. Impression: Muscle spasm of back, Urinary tract infection, site not specified, Other abdominal pain. - Condition is Stable. - Discharge Instructions: Muscle Cramps and Spasms, Sciatica, and Urinary Tract Infection. - Prescriptions for Cyclobenzaprine 10 mg Oral Tablet - take 1 tablet by ORAL route every 8 hours As needed; 30 tablet. Macrobid 100 mg Oral Capsule - take 1 capsule by ORAL route every 12 hours for 7 days; 14 capsule. - Medication Reconciliation Form, Thank You Letter, Antibiotic Education, Prescription Opioid Use form. - Follow up: Private Physician; When: 1 - 2 days; Reason: Recheck today's complaints, Continuance of care, Re-evaluation by your physician. - Notes: Please follow up with your [facility]LE[facility]RA[facility] PULP on Thursday. Due to your abdominal pain,Please resume bedrest. Please return to the Emergency Department if you develop. -Fever -Worsening Abdominal Pain -Decreased appetite -Vomiting -Diarrhea -Pelvic Pain -Vaginal Bleeding Addendum: 11/01/2018 08:21 Co-signature as Attending Physician, Jonas Reece MD I agree with the assessment and k dr plan of care. Signatures: Dispatcher [employer] EDMS Jonas Reece MD MD [facility] Edgard Lopez PA PA jmm Williams, Irene, RN RN iw Corrections: (The following items were deleted from the chart) 10/29 12:13 11:57 10/29/2018 11:57 Discharged to Home. Impression: Muscle spasm of back; Urinary iw tract infection, site not specified; Other abdominal pain. Condition is Stable. Forms are Medication Reconciliation Form, Thank You Letter, Antibiotic Education, Prescription Opioid Use. Follow up: Private Physician; When: 1 - 2 days; Reason: Recheck today's complaints, Continuance of care, Re-evaluation by your physician. [facility] 15:24 10:10 This is a 18 year old female approx 25 weeks IUP that presents to the ED with [facility] complaints of right flank pain which radiates down her right leg. Denies numbness or weakness to the leg. Denies urinary complaints. Denies fever, denies vomiting, denies diarrhea. Patient also complaints of right sided abdominal pain. . [facility]
== END 2018-10-29 12:13 | disposition home or self-care (01) ==
LOC: ER 09:41
DX: O23.42 Unspecified infection of urinary tract in pregnancy, second trimester (principal); Z3A.00 Weeks of gestation of pregnancy not specified; M62.830 Muscle spasm of back
CPT/HCPCS: 36415; 76705; 80048; 80076; 81003; 81015; 81025; 83690; 85025; 87086; 87088; 96374; 96375; 99283; J2270; J2405

== ENCOUNTER 2019-02-16 13:21 | Emergency (ER) | payer MEDICAID ==
--- OUTSIDE RECORDS SUMMARY | 2019-02-16 13:24 | XMS REPORT ---
:2000 [facility] Address [address] [place] [address] Dr. Dickson [address] [place] [address] Care Team Providers Name Role Phone Unavailable Unavailable Unavailable Problems This patient has no known problems. Allergies, Adverse Reactions, Alerts This patient has no known allergies or adverse reactions. Medications This patient has no known medications.
--- OUTSIDE RECORDS SUMMARY | 2019-02-16 13:25 | XMS REPORT | Summary of Care ---
:2000 Author Organization [facility] Address [address] [place] [id number] Care Team Providers Name Role Phone Jacqueline Chandra [facility] Primary Care Provider Simran Zavaleta Insurance Hmo Encounter Details Date Type Department Care Team Description 02/15/2019 Patient Secure [facility]- Jacqueline Chandra [place] [facility] [address] [facility] [address] [place] [address] [place], [place] [id number] Allergies No Known Allergiesdocumented as of this encounter (statuses as of 02/15/2019) Medications Medication Sig Dispensed Refills Start Date End Date Status vit Take 1 Packet by 30 Each 6 09/06/2018 Active 96-shfq-zkmtd-dha mouth daily. (SELECT-OB + DHA) 29 mg iron-1 mg -250 mg combo packIndications: High risk , antepartum ferrous sulfate 325 mg Take 1 tablet by 60 tablet 3 01/24/2019 Active (65 mg iron) mouth 2 (two) tabletIndications: times daily. Anemia of mother in , antepartum ascorbic acid, vitamin Take 1 tablet by 90 tablet 3 01/24/2019 Active C, 500 mg mouth 3 (three) tabletIndications: times daily. Anemia of mother in , antepartum vitamin w/FA Take 1 tablet by 100 tablet 3 01/25/2019 Active tabletIndications: mouth daily. Primigravida in third trimester, High risk , antepartum, Rubella non-immune status, antepartum, Full-term premature rupture of membranes with onset of labor within 24 hours of rupture, 37 weeks gestation of , Anemia, antepartum, third trimester, Liveborn infant, of [place] , born in hospital by vaginal delivery docusate calcium 240 Take 1 capsule by 30 capsule 1 01/25/2019 Active mg capsuleIndications: mouth once daily Primigravida in third as needed for trimester, High risk Constipation. , antepartum, Rubella non-immune status, antepartum, Full-term premature rupture of membranes with onset of labor within 24 hours of rupture, 37 weeks gestation of , Anemia, antepartum, third trimester, Liveborn infant, of [place] , born in hospital by vaginal delivery ferrous sulfate 325 mg Take 1 tablet by 60 tablet 2 01/25/2019 Active (65 mg iron) mouth 2 (two) tabletIndications: times daily. Primigravida in third trimester, High risk , antepartum, Rubella non-immune status, antepartum, Full-term premature rupture of membranes with onset of labor within 24 hours of rupture, 37 weeks gestation of , Anemia, antepartum, third trimester, Liveborn infant, of [place] , born in hospital by vaginal delivery ibuprofen 600 mg Take 1 tablet by 30 tablet 1 01/25/2019 Active tabletIndications: mouth every 6 Primigravida in third (six) hours as trimester, High risk needed for Pain , antepartum, (scale 1-3) or Rubella non-immune Pain (scale 4-6) status, antepartum, (Pain). Take with Full-term premature food or milk. rupture of membranes with onset of labor within 24 hours of rupture, 37 weeks gestation of , Anemia, antepartum, third trimester, Liveborn infant, of [place] , born in hospital by vaginal delivery documented as of this encounter (statuses as of 02/15/2019) Active Problems Problem Noted Date ROM (rupture of membranes), premature 01/24/2019 37 weeks gestation of 01/24/2019 Anemia, antepartum, third trimester 01/24/2019 Liveborn , of [place] , born in hospital by vaginal 2018 delivery Muscle spasm 11/02/2018 Rubella non-immune status, antepartum 09/07/2018 Overview: Address pp Primigravida in third trimester 09/06/2018 High risk , antepartum 09/06/2018 documented as of this encounter (statuses as of 02/15/2019) Resolved Problems Problem Noted Date Resolved Date Urinary tract infection without hematuria, site unspecified 11/22/20182018 documented as of this encounter (statuses as of 02/15/2019) Immunizations Name Administration Dates Next Due DTAP 06/27/2002 HEPATITIS A 06/19/2005 HPV 03/03/2011, 11/21/2010 MMR 01/25/2019, 06/27/2002 PPD (TB) 06/19/2004 Polio (IPV/OPV) 06/27/2002 TDAP (ADACEL) VACCINE 11/30/2018 documented as of this encounter Social History Tobacco Use Types Packs/Day Years Used Date Never Smoker Smokeless Tobacco: Never Used Alcohol Use Drinks/Week oz/Week Comments No Sex Assigned at Date Recorded Not on file Job Start Date Occupation Industry Not on file Not on file Not on file Travel History Travel Start Travel End No recent travel history available. documented as of this encounter Last Filed Vital Signs Not on filedocumented in this encounter Plan of Treatment Date Type Specialty Care Team Description 03/07/2019 Office Visit [facility] Jacqueline Chandra, SALES [employer]OUNT [employer]OCI[employer] [address] [place] [address] [phone] Health Maintenance Due Date Last Done Comments MENINGOCOCCAL B VACCINES (1 of 2008 2 - Risk Bexsero 2-dose series) HPV VACCINES (3 - Female 05/26/2011 03/03/2011, 2-dose series) 11/21/2010 INFLUENZA VACCINE 03/20/2019 CHLAMYDIA SCREENING 01/20/2020 01/19/2019, 09/06/2018 DTaP,Tdap,and Td Vaccines (3 - 11/30/2028 11/30/2018, Td) 06/27/2002 MENINGOCOCCAL VACCINE Aged Out No longer eligible based on patient's age to complete this topic PNEUMOCOCCAL 0-64 YEARS Aged Out No longer eligible based COMBINED SERIES on patient's age to complete this topic documented as of this encounter Results Not on filedocumented in this encounter Insurance Payer Benefit Plan / Subscriber ID Effective Phone Address Type Group Dates [place] xxxxxxxxx 2018-[place] [id number] MA[place]GED MEDICAID [place], [place] documented as of this encounter Advance Directives Name Relationship Healthcare Agent Communication Relationship Araceli Srivastava Mother Primary healthcare agent
--- OUTSIDE RECORDS SUMMARY | 2019-02-16 13:25 | XMS REPORT | Summary of Care ---
:2000 Author Organization [facility] Address [address] [place] [address] Care Team Providers Name Role Phone Jacqueline Chandra MAIL [employer]ERKS SUPERVISOR Primary Care Provider Simran Zavaleta Valerie Insurance Hmo Encounter Details Date Type Department Care Team Description [facility] High risk , Msg Reyna R, MAIL CLERKS SUPERVISOR antepartum (Primary [address]) [facility] [address] [place], [place] [phone] Allergies No Known Allergiesdocumented as of this encounter (statuses as of 02/15/2019) Medications Medication Sig Dispensed Refills Start Date End Date Status vit Take 1 Packet by 30 Each 6 09/06/2018 Active 03-owsf-ejqvf-dha mouth daily. (SELECT-OB + DHA) 29 mg [...] of , Anemia, antepartum, third trimester, Liveborn , of [place] , born in [...] of , Anemia, antepartum, third trimester, Liveborn , of [place] , born in [...] of , Anemia, antepartum, third trimester, Liveborn , of [place] , born in [...] 03/07/2019 Office Visit [facility] Jacqueline Chandra, MAIL CLERKS SUPERVISOR [address] [place] [address] [phone] Health Maintenance Due Date Last Done Comments [...] Results Not on filedocumented in this encounter Visit Diagnoses Diagnosis High risk , antepartum - Primary documented in this encounter Insurance Payer Benefit Plan / Subscriber ID Effective Phone Address Type Group Dates [place] xxxxxxxxx 2018-[place] [id number] MA[place]ED MEDICA[place] documented as of this encounter Advance Directives Name Relationship Healthcare Agent Communication Relationship Araceli Srivastava Mother Primary healthcare agent
--- OUTSIDE RECORDS SUMMARY | 2019-02-16 13:25 | XMS REPORT | Summary of Care ---
:2000 Author Organization [facility] Address [address] [place] [address] Care Team Providers Name Role Phone Jacqueline Chandra Primary Care Provider Simran Zavaleta Insurance Hmo Reason for Visit Reason Comments Care (Routine) Status Reason Specialty Diagnoses / Referred By Referred To Procedures Contact Contact New Request OB Satellites Diagnoses Primigravida in third trimester High risk , antepartum Rubella non-immune status, antepartum Full-term premature rupture of membranes with onset of labor within 24 hours of rupture 37 weeks gestation of Sona Reyes MD Anemia, antepartum, third trimester Liveborn infant, of [place] , born in hospital by vaginal delivery [address] [place] [address] Procedures DISCHARGE FOLLOW-UP: LIGHT INDUSTRIAL SUPER[place] [address] Encounter Details Date Type Department Care Team Description 02/14/2019 Routine [facility]- Jacqueline Chandra care and examination of lactating mother (Primary Dx); Visit LESLIE Alonzo Dysuria [address] [place] [address] [place], [place] [address] [place], [place] [phone] [address] [phone] Allergies No Known Allergiesdocumented as of this encounter (statuses as of 02/14/2019) Medications Medication Sig Dispensed Refills Start Date End Date Status vit Take 1 Packet by 30 Each 6 09/06/2018 Active 13-rmqz-vdtnm-dha mouth daily. (SELECT-OB + DHA) 29 mg [...] as of this encounter (statuses as of 02/14/2019) Active Problems Problem Noted Date ROM (rupture of membranes), premature 01/24/2019 37 weeks gestation of 01/24/2019 Anemia, antepartum, third trimester 01/24/2019 Liveborn infant, of [place] , born in hospital by vaginal 2018 delivery Muscle spasm 11/02/2018 Rubella non-immune status, antepartum 09/07/2018 Overview: Address pp Primigravida in third trimester 09/06/2018 High risk , antepartum 09/06/2018 documented as of this encounter (statuses as of 02/14/2019) Resolved Problems Problem Noted Date Resolved Date Urinary tract infection without hematuria, site unspecified 11/22/20182018 documented as of this encounter (statuses as of 02/14/2019) Immunizations Name Administration Dates Next Due DTAP [...] of this encounter Last Filed Vital Signs Vital Sign Reading Time Taken Comments Blood Pressure 113/80 02/14/2019 10:27 AM CDT Pulse 109 02/14/2019 10:27 AM CDT Temperature 36.5 C (97.7 F) 02/14/2019 10:27 AM CDT Respiratory Rate 16 02/14/2019 10:27 AM CDT Oxygen Saturation - - Inhaled Oxygen Concentration - - Weight 55.8 kg (123 lb 2 oz) 02/14/2019 10:27 AM CDT Height 157.5 cm (5' 2") 02/14/2019 10:27 AM CDT Body Mass Index 22.52 02/14/2019 10:27 AM CDT documented in this encounter Progress Notes Jcaqueline Chandra, ELECTRONICS UTILITY WORKER - 02/14/2019 10:15 AM CDT Chief complaint: Chief Complaint Patient presents with Care HPI The patient is here for a routine PP visit. Patient delivered male infant via on 01/24/2019. She has no complaints today. She states that she is her infant, is bonding well, and coping well with less sleep. She reports that she has no pain, small lochia, and denies all s/s of PP depression. She wants Nexplanon for PP contraception. Histories OB History Para Term AB Living 1 1 1 0 0 1 SAB TAB Ectopic Multiple Live Births 0 0 0 0 1 # Outcome Date GA Lbr Otto/2nd Weight Sex Delivery Anes PTL Lv 1 Term 01/24/19 37w4d 7 lb 9 oz (3.43 kg) M NORMAL SPONT EPI N MAIKEL Past Medical History: Diagnosis Date Anemia, antepartum, third trimester 01/24/2019 Family History Problem Relation Age of Onset Hypertension Mother No Significant Medical Problems Father No Significant Medical Problems Sister No Significant Medical Problems Brother No Significant Medical Problems Maternal Aunt No Significant Medical Problems Maternal Uncle No Significant Medical Problems Paternal Aunt No Significant Medical Problems Paternal Uncle No Significant Medical Problems Maternal Grandmother No Significant Medical Problems Maternal Grandfather Diabetes Paternal Grandmother No Significant Medical Problems Paternal Grandfather Family Status Relation Name Status Mo Alive Fa Alive Sis Alive Bro Alive MAunt Alive MUnc Alive PAunt Alive PUnc MGMo MGFa PGMo Alive PGFa Alive No past surgical history on file. Social History Socioeconomic History Marital status: Spouse name: Not on file Number of children: Not on file Years of education: Not on file Highest education level: Not on file Occupational History Not on file Social Needs Financial resource strain: Not on file Food insecurity: Worry: Not on file Inability: Not on file Transportation needs: Medical: Not on file Non-medical: Not on file Tobacco Use Smoking status: Never Smoker Smokeless tobacco: Never Used Substance and Sexual Activity Alcohol use: No Drug use: No Sexual activity: Not Currently Partners: Male control/protection: None Comment: last sexual intercourse 06/2018 Lifestyle Physical activity: Days per week: Not on file Minutes per session: Not on file Stress: Not on file Relationships Social connections: Talks on phone: Not on file Gets together: Not on file Attends yarsanism service: Not on file Active member of club or organization: Not on file Attends meetings of clubs or organizations: Not on file Relationship status: Not on file Intimate partner violence: Fear of current or ex partner: Not on file Emotionally abused: Not on file Physically abused: Not on file Forced sexual activity: Not on file Other Topics Concern Not on file Social History Narrative Patient lives by herself. Patient has 1 dog. Social History Substance and Sexual Activity Sexual Activity Not Currently Partners: Male control/protection: None Comment: last sexual intercourse 06/2018 Labs Labs are pending. Radiology No new radiology. Allergies Caroline has No Known Allergies. Medications Caroline has a current medication list which includes the following prescription(s) : docusate calcium, ferrous sulfate, ibuprofen, vitamin w/fa, ascorbic acid (vitamin c), ferrous sulfate, and vit 55-hnhj-vdrem-dha. Review of Systems Constitutional: Negative for activity change, appetite change, fatigue, unexpected weight change, weight gain and weight loss. HENT: Negative for sore throat. Eyes: Negative for visual disturbance. Respiratory: Negative for cough and shortness of breath. Breasts: Negative for discharge, mass, pain and unequal size. Cardiovascular: Negative for chest pain, palpitations and leg swelling. Gastrointestinal: Negative. Negative for abdominal pain, anal bleeding, blood in stool, constipation, diarrhea, nausea, rectal pain and vomiting. Genitourinary: Negative for bladder incontinence, dysuria, urgency, flank pain, vaginal bleeding, vaginal discharge, genital sores, vaginal pain and pelvic pain. Skin: Negative for color change and rash. Neurological: Negative. Negative for dizziness, syncope and headaches. Psychiatric/Behavioral: Negative for confusion, self-injury and sleep disturbance. The patient is not nervous/anxious. Hematological: Negative for cold intolerance and heat intolerance. Endocrine: Negative for hair loss, cold intolerance, heat intolerance, weight gain and weight loss. BP 113/80 (BP Location: Right arm, Patient Position: Sitting, BP CUFF SIZE: Adult Medium) | Pulse 109 | Temp 36.5 C (97.7 F) (Oral) | Resp 16 | Ht 5 ' 2" (1.575 m) | Wt 123 lb 2 oz (55.8 kg) |LMP 05/06/2018 (Within Days) | BMI 22.52 kg/m Pregravid BMI: 20.5 Physical Exam Vitals reviewed. Constitutional: She is oriented to person, place, and time. She appears well- developed and well-nourished. Her body habitus is normal. Cardiovascular: Regular rate and rhythm. No peripheral edema present. Pulmonary/Chest: Normal inspiratory effort. Neuro/Psychiatric: Inappropriate mood and affect. She is oriented to person, place, and time. Skin: Skin normal. No lesion, no rash and no ulceration present. Rectal: normal rectum External genitalia: Normal external genitalia appropriate for age. Gardening Supervisor present for the exam: Krystyna Villalta RN Assessment/Plan care and examination of lactating mother (primary encounter diagnosis) Comment: Routine Visit Plan: Denies zika virus risk, signs and symptoms such as fever,rash,joint pain, conjunctivitis (red eyes), muscle pain, headaches; outside [place] travel to areas affected by zika, and FOB exposure to zika.Educated on use of mosquito repellent. Dysuria Comment: POCT confirmed UTI POCT URINALYSIS W/O SPECIFIC GRAVITY, URINE CULTURE Return to clinic in 3 weeks for WWE. Discussed treatment options. Medications as ordered. Reviewed patient instructions and provided printed copy. This visit did not involve counseling and coordination that comprised more than 50% of the visit time. LESLIE Dimas 02/14/2019 11:03 AM Krystyna Vega RN - 02/14/2019 10:15 AM CDTPt in clinic today for 3 wk pp visit. 1) Delivery method vaginal 2) Patient delivered on 01/24/2019 at [place] 3) Patient is currently 4) Desired BCM: nexplanon 5) Patient denies pp depression Lochia: light spotting, brown/at times can be red. C/O: burning pain after urination, pain scale 7/10. Also is feeling numbness on the left thigh. documented in this encounter Plan of Treatment Date Type Specialty Care Team Description 03/07/2019 Office Visit OB [facility] Jacqueline Chandra, ELECTRONICS UTILITY WORKER [address] [place], [place] [address] Name Type Priority Associated Diagnoses Order Schedule URINE CULTURE LAB Routine Dysuria Ordered: 02/14/2019 Health Maintenance Due Date Last Done Comments [...] this topic documented as of this encounter Procedures Procedure Name Priority Date/Time Associated Comments Diagnosis POCT URINALYSIS W/O Routine 02/14/2019 10:56 AM Dysuria Results for this SPECIFIC GRAVITY CDT procedure are in the results section. documented in this encounter Results POCT URINALYSIS W/O SPECIFIC GRAVITY (02/14/2019 10:56 AM CDT) POCT PH U 5 5 - 8 mg/dl POCT U LEUK EST 2+ Negative - Negative POCT U NIT pos Negative - Negative POCT U PROT neg Negative - Negative POCT U GLU neg Negative - Negative POCT U KETONE neg Negative - Negative POCT U BLD large Negative - Negative Specimen Urine - URINE, CLEAN CATCH documented in this encounter Visit Diagnoses Diagnosis care and examination of lactating mother - Primary Dysuria documented in this encounter Insurance Payer Benefit Plan / Subscriber ID Effective Phone Address Type Group Dates [place]AN[place] xxxxxxxxx 2018-[address] [place] [id number] MANAGED MEDICAID [place], [place] documented as of this encounter Advance Directives Name Relationship Healthcare Agent Communication Relationship Araceli Srivastava Mother Primary healthcare agent
--- OUTSIDE RECORDS SUMMARY | 2019-02-16 13:25 | XMS REPORT | Summary of Care ---
:2000 Author Organization [facility] Address [address] [place] [address] Care Team Providers Name Role Phone Jacqueline [...] , born in hospital by vaginal delivery [address] [place] [address] Procedures DISCHARGE FOLLOW-UP: QUALITY ASSURANCE SU[place] [address] Encounter Details Date Type Department Care Team Description 02/14/2019 Routine [facility]- Jacqueline Chandra care and examination of lactating mother (Primary Dx); Visit LESLIE Alonzo Dysuria [address] [place] [address] [place], [place] [address] [place], [place] [phone] [address] [phone] Allergies No Known Allergiesdocumented as of this encounter (statuses as of 02/14/2019) Medications Medication Sig Dispensed Refills Start Date End Date Status vit Take 1 Packet by 30 Each 6 09/06/2018 Active 38-cwok-qigsd-dha mouth daily. (SELECT-OB + DHA) 29 mg [...] CDT documented in this encounter Progress Notes Jacqueline Chandra, RETURNED GOODS REPAIRER - 02/14/2019 10:15 AM CDT Chief complaint: [...] file Gets together: Not on file Attends sikhism service: Not on file Active member of [...] acid (vitamin c), ferrous sulfate, and vit 19-njpx-olpxd-dha. Review of Systems Constitutional: Negative for activity [...] genitalia: Normal external genitalia appropriate for age. Retail Sales Specialist present for the exam: Krystyna Villalta RN [...] vaginal 2) Patient delivered on 01/24/2019 at [place] 3) Patient is currently 4) Desired BCM: nexplanon 5) Patient denies pp depression Lochia: light spotting, brown/at times can be red. C/O: burning pain after urination, pain scale 7/10. Also is feeling numbness on the left thigh. documented in this encounter Plan of Treatment Date Type Specialty Care Team Description 03/07/2019 Office Visit [facility] [place] Jacqueline Chandra, RETURNED GOODS REPAIRER [address] [place], [place] [address] Name Type Priority Associated Diagnoses Order Schedule [...] [place] [id number] MA[place]ED MEDICA[place] documented as of this encounter Advance Directives Name Relationship Healthcare Agent Communication Relationship Araceli Srivastava Mother Primary healthcare agent
--- OUTSIDE RECORDS SUMMARY | 2019-02-16 13:25 | XMS REPORT | Summary of Care ---
:2000 Author Organization [facility] Address [address] [place] [address] Care Team Providers Name Role Phone Jacqueline Chandra CURATOR HORTICULTURAL MUSEUM Primary Care Provider Simran Zavaleta Valerie Insurance Hmo Encounter Details Date Type Department Care Team Description 02/15/2019 [facility]andra High risk , Msg Reyna R, CURATOR HORTICULTURAL MUSEUM antepartum (Primary [address] [place] [address] [place]) [facility] [address] [place], [place] [phone] Allergies No Known Allergiesdocumented as of this encounter (statuses as of 02/15/2019) Medications Medication Sig Dispensed Refills Start Date End Date Status vit Take 1 Packet by 30 Each 6 09/06/2018 Active 14-rvur-nmrjr-dha mouth daily. (SELECT-OB + DHA) 29 mg [...] 03/07/2019 Office Visit OB Satellites Jacqueline Chandra, CURATOR HORTICULTURAL MUSEUM [address] [place] [address] [phone] Health Maintenance Due Date Last Done Comments [...] 2018-[place] [id number] MA[place]ED MEDICAID [place] documented as of this encounter Advance Directives Name Relationship Healthcare Agent Communication Relationship Araceli Srivastava Mother Primary healthcare agent
--- OUTSIDE RECORDS SUMMARY | 2019-02-16 13:26 | XMS REPORT | Summary of Care ---
:2000 Author Organization [facility] Address [address] [place] [address] Care Team Providers Name Role Phone Jacqueline Chandra [facility] Primary Care Provider Simran Zavaleta Insurance Hmo Encounter Details Date Type Department Care Team Description 02/15/2019 Patient Secure [facility]- Jacqueline Chandra [place] [facility] [address] [facility] [address] [place] [address] [place], [place] [address] Allergies No Known Allergiesdocumented as of this encounter (statuses as of 02/15/2019) Medications Medication Sig Dispensed Refills Start Date End Date Status vit Take 1 Packet by 30 Each 6 09/06/2018 Active 45-xfnn-twhil-dha mouth daily. (SELECT-OB + DHA) 29 mg [...] 03/07/2019 Office Visit OB Satellites Jacqueline Chandra, MILL WORKER [address] [place] [address] [phone] Health Maintenance Due Date Last Done Comments [...] 2018-[place] [id number] MANA[place]ED MEDICAID [place] documented as of this encounter Advance Directives Name Relationship Healthcare Agent Communication Relationship Araceli Srivastava Mother Primary healthcare agent
[2019-02-16 14:16] LABS: Urine Blood TRACE (NEG); Urine Glucose NEGATIVE (NEG); Urine Protein TRACE (NEG); Urine Specific Gravity 1.025 (1.005-1.030); Urine pH 6.5 (5.0-7.0)
[2019-02-16 14:51] LABS: Absolute Lymphocytes (CBC) 1.7 K/uL (0.7-4.9); Basophils % 0.5 % (0-1.3); Hematocrit 32.9 % (36.0-45.0); Lymphocytes % 29.4 % (15.3-44.8); MPV 9.6 fL (7.6-11.3); RBC Red Blood Cell Count 4.52 M/uL (3.86-4.86)
[2019-02-16 15:08] LABS: Urine Bacteria 20-50 /HPF (<20); Urine Culture Reflex Order REFLEXED; Urine RBC <5 /HPF (NONE SEEN)
[2019-02-16 15:11] LABS: ALT/SGPT 22 U/L (12-78); AST/SGOT 17 U/L (15-37); Albumin 3.6 g/dL (3.4-5.0); Alkaline Phosphatase 99 U/L (45-117); BUN Blood Urea Nitrogen 13 mg/dL (7-18); Bicarbonate 29 mmol/L (21-32); Bilirubin Direct < 0.1 mg/dL (0-0.2); Bilirubin Total 0.3 mg/dL (0.2-1.0); Glucose Level 89 mg/dL (74-106); Lipase 167 U/L (73-393); Potassium 3.9 mmol/L (3.5-5.1); Protein, Total 7.1 g/dL (6.4-8.2); Sodium Level 144 mmol/L (136-145)
[2019-02-16 15:39] LABS: Platelet Estimate ADEQ; Urine White Blood Cell Casts OK
[2019-02-16 15:40] LABS: Anisocytosis 2+; Blood Morphology Comment NOTED (NOT SEEN); Elliptocytes 1+; Hypochromasia 1+
--- NOTE | 2019-02-16 15:52 | RAD REPORT ---
EXAM DESCRIPTION: CTAbdomen Pelvis W Contrast - 02/16/2019 3:42 pm CLINICAL HISTORY: Abdominal pain. ABD PAIN COMPARISON: <Comparisons> TECHNIQUE: Biphasic CT imaging of the abdomen and pelvis was performed with 100 ml non-ionic IV cont rast. All CT scans are performed using dose optimization technique as appropriate and may include automated exposure control or mA/KV adjustment according to patient size. FINDINGS: The lung bases are clear. The liver, spleen, pancreas, adrenal glands and kidneys are within normal limits. No bowel obstruction, free air, free fluid or abscess. Small fat containing umbilical hernia. The maryann endix is normal. No evidence of significant lymphadenopathy. No suspicious bony findings. IMPRESSION: No acute intra-abdominal or pelvic finding.
--- NOTE | 2019-02-16 16:01 | ER ---
Nurse's Notes [facility] Name: Caroline Valentin Age: 18 yrs Sex: Female : 2000 Arrival Date: 02/16/2019 Time: 13:26 Bed 30 Private MD: Diagnosis: Urinary tract infection, site not specified;Abdominal and pelvic pain Presentation: 02/16 13:34 Presenting complaint: Abdominal pain x 3 weeks, burning with urination x 2 days. Denies hb fever. Pt is 3 weeks , vaginal delivery, no complications. Transition of care: patient was not received from another setting of care. Onset of symptoms was February 15, 2019. Risk Assessment: Do you want to hurt yourself or someone else? Patient reports no desire to harm self or others. Care prior to arrival: None. 13:34 Method Of Arrival: Ambulatory hb 13:34 Acuity: SHAWANDA 3 hb 14:37 Initial Sepsis Screen: Does the patient meet any 2 criteria? No. Patient's initial rv sepsis screen is negative. Does the patient have a suspected source of infection? No. Patient's initial sepsis screen is negative. 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 - Social history:: Smoking status: Patient/guardian denies using tobacco. - Ebola Screening: : No symptoms or risks identified at this time. Screenin:36 Abuse screen: Denies threats or abuse. Denies injuries from another. Nutritional rv screening: No deficits noted. Tuberculosis screening: No symptoms or risk factors identified. Fall Risk None identified. Assessment: 14:31 General: Appears in no apparent distress. comfortable, Behavior is calm, cooperative. rv Pain: Complains of pain in abdomena and perineal area. Neuro: Level of Consciousness is awake, alert, obeys commands, Oriented to person, place, time, situation. Cardiovascular: Patient's skin is warm and dry. Respiratory: Airway is patent. GI: Bowel sounds present X 4 quads. Abd is soft and non tender X 4 quads. : Reports pain. EENT: No signs and/or symptoms were reported regarding the EENT system. Derm: Skin is intact. Musculoskeletal: No signs and/or symptoms reported regarding the musculoskeletal system. 15:55 Reassessment: Patient appears in no apparent distress at this time. Patient and/or rv family updated on plan of care and expected duration. Pain level reassessed. Patient is alert, oriented x 3, equal unlabored respirations, skin warm/dry/pink. AWAITING RADIOLOGY REPORT. Vital Signs: 13:35 BP 114 / 84; Pulse 87; Resp 16; Temp 97.5; Pulse Ox 100% on R/A; Weight 55.79 kg; hb Height 5 ft. 2 in. (157.48 cm); Pain 8/10; 15:05 BP 101 / 70; Pulse 86; Resp 17; Pulse Ox 100% on R/A; rv 15:55 BP 110 / 71; Pulse 60; Resp 16; Pulse Ox 100% ; rv 13:35 Body Mass Index 22.50 (55.79 kg, 157.48 cm) hb ED Course: 13:26 Patient arrived in ED. cl3 13:35 Triage completed. hb 13:35 Arm band placed on. hb 13:54 Brayan Daniel PA is PHCP. jr8 13:54 Dami Westbrook MD is Attending Physician. jr8 14:30 Petr Rutherford, DONTRELL is Primary Nurse. rv 14:34 Inserted saline lock: 20 gauge in right antecubital area, using aseptic technique. rv Blood collected. 14:37 Patient has correct armband on for positive identification. Placed in gown. Bed in low rv position. Call light in reach. Side rails up X 1. Adult w/ patient. Pulse ox on. NIBP on. 14:41 TS Sent. rv 14:41 Basic Metabolic Panel Sent. rv 14:41 CBC with Diff Sent. rv 14:41 Creatinine for Radiology Sent. rv 14:41 Hepatic Function Sent. rv 14:41 Lipase Sent. rv 15:[address] via wheelchair. nj 15:42 CT completed. Patient tolerated procedure well. Patient moved back from CT. nj 15:42 CT Abd/Pelvis - IV Contrast Only In Process Unspecified. EDMS 16:09 No provider procedures requiring assistance completed. IV discontinued, intact, rv bleeding controlled, No redness/swelling at site. Pressure dressing applied. Administered Medications: No medications were administered Outcome: 16:00 Discharge ordered by MD. sinha 16:10 Discharged to home ambulatory, with family. rv 16:10 Condition: good 16:10 Discharge instructions given to patient, family, Instructed on discharge instructions, follow up and referral plans. medication usage, Demonstrated understanding of instructions, follow-up care, medications, Prescriptions given X 1. 16:10 Patient left the ED. rv Signatures: Dispatcher [employer] EDMS Brayan Daniel PA PA jr8 Carla Penny, RN RN Suresh Delgado Ronaldo, RN RN Lopez Monae cl3
--- NOTE | 2019-02-16 16:01 | EDPHYS ---
Physician Documentation [facility] Name: Caroline Valentin Age: 18 yrs Sex: Female : 2000 Arrival Date: 02/16/2019 Time: 13:26 Bed 30 Private MD: ED Physician Dami Westbrook HPI: 02/16 14:28 This 18 yrs old Female presents to ER via Ambulatory with complaints of jr8 Abdominal Pain, Pain With Urination. 14:28 The patient presents with abdominal pain that is diffuse. Onset: The symptoms/episode jr8 began/occurred gradually, 3 week(s) ago, and became worse. The symptoms do not radiate. Associated signs and symptoms: Pertinent positives: nausea. The symptoms are described as stabbing. Modifying factors: The symptoms are alleviated by nothing, the symptoms are aggravated by movement. Severity of pain: At its worst the pain was moderate in the emergency department the pain is unchanged. The patient has not experienced similar symptoms in the past. The patient has not recently seen a physician. Patient stated that she had a child about 3 weeks ago. Vaginal delivery. No complications. Since then has had abdominal pain that is now worsening. Now having urinary complaints as well . 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 - Social history:: Smoking status: Patient/guardian denies using tobacco. - Ebola Screening: : No symptoms or risks identified at this time. ROS: 14:28 Eyes: Negative for injury, pain, redness, and discharge, ENT: Negative for injury, jr8 pain, and discharge, Neck: Negative for injury, pain, and swelling, Cardiovascular: Negative for chest pain, palpitations, and edema, Respiratory: Negative for shortness of breath, cough, wheezing, and pleuritic chest pain, Back: Negative for injury and pain, MS/Extremity: Negative for injury and deformity, Skin: Negative for injury, rash, and discoloration, Neuro: Negative for headache, weakness, numbness, tingling, and seizure. 14:28 Abdomen/GI: Positive for abdominal pain, nausea, Negative for vomiting, diarrhea, constipation, abdominal cramps, abdominal distension, anorexia, dysphagia, hematemesis, black/tarry stool, rectal pain, rectal bleeding, bowel incontinence, flatulence. Exam: 14:28 Eyes: Pupils equal round and reactive to light, extra-ocular motions intact. Lids and jr8 lashes normal. Conjunctiva and sclera are non-icteric and not injected. Cornea within normal limits. Periorbital areas with no swelling, redness, or edema. ENT: Nares patent. No nasal discharge, no septal abnormalities noted. Tympanic membranes are normal and external auditory canals are clear. Oropharynx with no redness, swelling, or masses, exudates, or evidence of obstruction, uvula midline. Mucous membranes moist. Neck: Trachea midline, no thyromegaly or masses palpated, and no cervical lymphadenopathy. Supple, full range of motion without nuchal rigidity, or vertebral point tenderness. No Meningismus. Cardiovascular: Regular rate and rhythm with a normal S1 and S2. No gallops, murmurs, or rubs. Normal PMI, no JVD. No pulse deficits. Respiratory: Lungs have equal breath sounds bilaterally, clear to auscultation and percussion. No rales, rhonchi or wheezes noted. No increased work of breathing, no retractions or nasal flaring. Back: No spinal tenderness. No costovertebral tenderness. Full range of motion. MS/ Extremity: Pulses equal, no cyanosis. Neurovascular intact. Full, normal range of motion. Neuro: Awake and alert, GCS 15, oriented to person, place, time, and situation. Cranial nerves II-XII grossly intact. Motor strength 5/5 in all extremities. Sensory grossly intact. Cerebellar exam normal. Normal gait. 14:28 Abdomen/GI: Inspection: abdomen appears normal, Bowel sounds: active, all quadrants, Palpation: soft, in all quadrants, moderate abdominal tenderness, in the right upper quadrant, left upper quadrant, right lower quadrant and left lower quadrant, mass, is not appreciated, rebound tenderness, is not appreciated, voluntary guarding, is not appreciated, involuntary guarding, is not appreciated, no appreciated organomegaly, Indicators: McBurney's point is not tender, Aguayo's sign is negative, Rovsing's sign is negative, Liver: tenderness, is not appreciated. 14:28 Skin: Appearance: Color: pale. Vital Signs: 13:35 BP 114 / 84; Pulse 87; Resp 16; Temp 97.5; Pulse Ox 100% on R/A; Weight 55.79 kg; hb Height 5 ft. 2 in. (157.48 cm); Pain 8/10; 15:05 BP 101 / 70; Pulse 86; Resp 17; Pulse Ox 100% on R/A; rv 15:55 BP 110 / 71; Pulse 60; Resp 16; Pulse Ox 100% ; rv 13:35 Body Mass Index 22.50 (55.79 kg, 157.48 cm) hb MDM: 13:54 Patient medically screened. jr8 16:00 Data reviewed: vital signs, nurses notes, lab test result(s), radiologic studies, CT jr8 scan. Data interpreted: Pulse oximetry: on room air is 100 %. Interpretation: normal. Counseling: I had a detailed discussion with the patient and/or guardian regarding: the historical points, exam findings, and any diagnostic results supporting the discharge/admit diagnosis, lab results, radiology results, the need for outpatient follow up, an OB/Gyne specialist, to return to the emergency department if symptoms worsen or persist or if there are any questions or concerns that arise at home. 02/16 14:04 Order name: Urine Dipstick--Ancillary (enter results); Complete Time: 14:21 bd 02/16 14:05 Order name: Urine Microscopic Only; Complete Time: 15:16 bd 02/16 14:20 Order name: Basic Metabolic Panel; Complete Time: 15:16 02/16 14:20 Order name: CBC with Diff; Complete Time: 15:43 02/16 14:20 Order name: Creatinine for Radiology; Complete Time: 15:16 02/16 14:20 Order name: Hepatic Function; Complete Time: 15:16 02/16 14:20 Order name: Lipase; Complete Time: 15:16 02/16 14:20 Order name: IV Saline Lock; Complete Time: 14:41 02/16 14:20 Order name: Labs collected and sent; Complete Time: 14:41 02/16 14:20 Order name: TS; Complete Time: 15:43 jr02/16 14:55 Order name: CBC Smear Scan; Complete Time: 15:43 EDMS 02/16 15:10 Order name: Urine Culture [facility] 02/16 15:16 Order name: CT Abd/Pelvis - IV Contrast Only; Complete Time: 15:55 jr8 Administered Medications: No medications were administered Disposition: 16:22 Co-signature as Attending Physician, Dami Westbrook MD. rn Disposition: 02/16/19 16:00 Discharged to Home. Impression: Urinary tract infection, site not specified, Abdominal and pelvic pain. - Condition is Stable. - Discharge Instructions: Abdominal Pain, Adult, Urinary Tract Infection, Adult. - Prescriptions for Macrobid 100 mg Oral Capsule - take 1 capsule by ORAL route every 12 hours for 7 days; 14 capsule. - Medication Reconciliation Form, Thank You Letter, Antibiotic Education, Prescription Opioid Use form. - Follow up: Private Physician; When: 2 - 3 days; Reason: Recheck today's complaints, Continuance of care, Re-evaluation by your physician. - Problem is new. - Symptoms have improved. Signatures: Dispatcher [employer] [facility] Dami Westbrook MD MD rn Brayan Daniel PA PA jr8 Carla Penny, RN RN Petr Mason RN RN rv Corrections: (The following items were deleted from the chart) 16:10 16:00 02/16/2019 16:00 Discharged to Home. Impression: Urinary tract infection, site rv not specified; Abdominal and pelvic pain. Condition is Stable. Forms are Medication Reconciliation Form, Thank You Letter, Antibiotic Education, Prescription Opioid Use. Follow up: Private Physician; When: 2 - 3 days; Reason: Recheck today's complaints, Continuance of care, Re-evaluation by your physician. Problem is new. Symptoms have improved. jr8
[2019-02-16] MEDS ORDERED: MORPHINE 4 MG/ML SYR ONE (16:42)
== END 2019-02-16 16:10 | disposition home or self-care (01) ==
LOC: ER 13:21
DX: N39.0 Urinary tract infection, site not specified (principal)
CPT/HCPCS: 36415; 74177; 80048; 80076; 81003; 81015; 83690; 85025; 86850; 86900; 86901; 87086; 87088; Q9967

== ENCOUNTER 2019-04-03 19:43 | Emergency (ER) | payer MEDICAID ==
--- OUTSIDE RECORDS SUMMARY | 2019-04-03 19:46 | XMS REPORT ---
:2000 [facility] Address [address] [place] [address] Dr. Dickson [address] [place] [id number] Care Team Providers Name Role Phone Unavailable Unavailable Unavailable Problems This patient has no known problems. Allergies, Adverse Reactions, Alerts This patient has no known allergies or adverse reactions. Medications This patient has no known medications.
--- OUTSIDE RECORDS SUMMARY | 2019-04-03 19:47 | XMS REPORT | Summary of Care ---
:2000 Author Organization [facility] Address [address] [place] [id number] Care Team Providers Name Role Phone Jacqueline Chandra PICCOLO MECHANIC Primary Care Provider Simran Zavaleta Insurance Hmo Reason for Visit Reason Comments Well Woman Exam NEXPLANON insert Encounter Details Date Type Department Care Team Description 03/07/2019 Office Visit [facility]- Jacqueline Chandra Well woman exam (Primary Dx); LESLIE Alonzo Encounter for initial prescription of implantable subdermal contraceptive; [address]; [place], [place] [id number] [place], [place] [id number] Allergies No Known Allergiesdocumented as of this encounter (statuses as of 03/07/2019) Medications Medication Sig Dispensed Refills Start Date End Date Status vit Take 1 Packet by 30 Each 6 09/06/2018 Active 90-iabh-hujrz-dha mouth daily. (SELECT-OB + DHA) 29 mg iron-1 mg -250 mg combo packIndications: High risk , antepartum ferrous sulfate 325 Take 1 tablet by 60 tablet 3 01/24/2019 Active mg (65 mg iron) mouth 2 (two) tabletIndications: times daily. Anemia of mother in , antepartum ascorbic acid, Take 1 tablet by 90 tablet 3 01/24/2019 Active vitamin C, 500 mg mouth 3 (three) tabletIndications: [...] delivery docusate calcium 240 Take 1 capsule 30 capsule 1 01/25/2019 Active mg by mouth once capsuleIndications: daily as needed Primigravida in third for trimester, High risk Constipation. , antepartum, Rubella non-immune status, antepartum, Full-term premature rupture of membranes with onset of labor within 24 hours of rupture, 37 weeks gestation of , Anemia, antepartum, third trimester, Liveborn infant, of [place] , born in hospital by vaginal delivery ferrous sulfate 325 Take 1 tablet by 60 tablet 2 01/25/2019 Active mg (65 mg iron) mouth 2 (two) tabletIndications: [...] trimester, High risk needed for Pain , (scale 1-3) or antepartum, Rubella Pain (scale 4-6) non-immune status, (Pain). Take antepartum, Full-term with food or premature rupture of milk. membranes with onset of labor within 24 hours of rupture, 37 weeks gestation of , Anemia, antepartum, third trimester, Liveborn , of [place] , born in hospital by vaginal delivery Nitrofurantoin&Nit. Take 1 capsule 20 capsule 0 03/07/2019 03/17/2019 Active Macrocryst (MACROBID) by mouth 2 (two) 100 mg times daily for capsuleIndications: 10 days. Dysuria Hospital, Clinic, or Other Ordered Dose Route Frequency Start Date End Date Status Facility Administered Medication etonogestrel (NEXPLANON) 68 mg Sdrm ONCE NOW 03/07/2019 03/07/2019 Ended implant 68 mgIndications: [address] in place documented as of this encounter (statuses as of 03/07/2019) Active Problems Problem Noted Date Well woman exam 03/07/[address] 03/07/2019 Dysuria 03/07/2019 documented as of this encounter (statuses as of 03/07/2019) Resolved Problems Problem Noted Date Resolved Date ROM (rupture of membranes), premature 01/24/2019 03/07/2019 37 weeks gestation of 01/24/2019 03/07/2019 Anemia, antepartum, third trimester 01/24/2019 03/07/2019 Liveborn infant, of [place] , born in hospital by 01/24/201903/07 vaginal delivery Urinary tract infection without hematuria, site unspecified 11/22/20182018 Muscle spasm 11/02/2018 03/07/2019 Rubella non-immune status, antepartum 09/07/2018 03/07/2019 Overview: Address pp Primigravida in third trimester 09/06/2018 03/07/2019 High risk , antepartum 09/06/2018 03/07/2019 documented as of this encounter (statuses as of 03/07/2019) Immunizations Name Administration Dates Next Due DTAP [...] Sign Reading Time Taken Comments Blood Pressure 111/75 03/07/2019 10:27 AM CDT Pulse 79 03/07/2019 10:27 AM CDT Temperature 36.4 C (97.6 F) 03/07/2019 10:27 AM CDT Respiratory Rate 16 03/07/2019 10:27 AM CDT Oxygen Saturation - - Inhaled Oxygen Concentration - - Weight 55 kg (121 lb 4 oz) 03/07/2019 10:27 AM CDT Height 157.5 cm (5' 2") 03/07/2019 10:27 AM CDT Body Mass Index 22.18 03/07/2019 10:27 AM CDT documented in this encounter Progress Notes Jacqueline Chandra FNP - 03/07/2019 10:30 AM CDTNexplanon PLACEMENT PROCEDURE NOTE Preoperative Diagnoses: Nexplanon Insertion The risks, benefits and alternatives were discussed. The patient voiced her understanding. She wished to proceed and an informed consent was obtained. Patient has been identified by name and and will be undergoing Nexplanon placement. Patient is right handed. Patient, procedure and site have been confirmed by the following clinicians: LESLIE Menendez and Krystyna Villalta RN. Timeout performed by LESLIE Dimas at 1105. Procedure: The patient is placed on the exam table in a supine position. Her non -dominant arm is flexed at the elbow and externally rotated so her wrist is parallel to her ear and her hand is positioned next to her head. The inner aspect of the upper arm is marked at 8cm and 12cm superior to the medial epicondyle, in the mid-portion of the upper arm, parallel with the humerus. The surface of the inner arm is then prepped with Betadin. Sterile drapes are applied. The insertion area is injected subcutaneously with 2 ccs of lidocaine 1% without epinephrine along the planned insertion tunnel. The Nexplanon insertion needle is then inserted at 8cm superior to the medial epicondyle, using counter traction and lifting the skin to keep the needle in the subdermal connective tissue. The needle is advanced to 12 cm above the medial epicondyle. The cannula is then retracted and needle is removed. Thereis minimal bleeding from the insertion site. The Nexplanon capsule is easily palpable by myself and the patient. Sterile gauze and a pressure dressing is placed over the insertion site. The patient tolerated the procedure well and there were no complications. Post-procedure instructions given. Patient verbalized understanding. Findings/Assessment Nexplanon Inserted without complaints Plan Encounter for initial prescription of implantable subdermal contraceptive Nexplanon in place Comment: Patient desires Nexplanon Plan: POCT TEST, etonogestrel (NEXPLANON) implant 68 mg Patient desires NHexplanon for contraception. Provider has reviewed risks , benefits and alternatives contraception methods. Provider has also reviewed use, side effects and effectiveness of desires BCM vs other BCM. Encouraged abstinence until menses. Encouraged use of condoms as back up x 1 month and for safer sex. 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 Patient denies any complaints. Patient denies any abdominal/pelvic pain. Patient desires Nexplanon for BCM. Patient denies current or past physical, sexual or emotional abuse. Histories OB History Para Term AB Living 1 1 1 0 0 1 SAB TAB Ectopic Multiple Live Births 0 0 0 0 1 # Outcome Date GA Lbr Otto/2nd Weight Sex Delivery Anes PTL Lv 1 Term 01/24/19 37w4d 7 lb 9 oz (3.43 kg) M NORMAL SPONT EPI N MAIKEL Past Medical History: Diagnosis Date Anemia, antepartum, third trimester 01/24/2019 ongoing, on medication Family History Problem Relation Age of Onset [...] PUnc MGMo MGFa PGMo Alive PGFa Alive History reviewed. No pertinent surgical history. Social History Socioeconomic History Marital status: Spouse [...] file Gets together: Not on file Attends sikh service: Not on file Active member of [...] file Social History Narrative Patient lives by herself and . Patient has 1 dog. Muslim preference [employer]. Social History Substance and Sexual Activity Sexual Activity Not Currently Partners: Male control/protection: None Comment: last sexual intercourse 06/2018 Labs No new labs Radiology No new radiology. Allergies Caroline has No Known Allergies. Medications Caroline has a current medication list which includes the following prescription(s) : nitrofurantoin&nit. macrocryst, docusate calcium, ferrous sulfate, ibuprofen, ascorbic acid (vitamin c), ferrous sulfate, vit 33-iron- folic-dha, and vitamin w/fa. Review of Systems Constitutional: Negative for activity [...] intolerance, weight gain and weight loss. BP 111/75 (BP Location: Right arm, Patient Position: Sitting, BP CUFF SIZE: Adult Medium) | Pulse 79 | Temp 36.4 C (97.6 F) (Oral) | Resp 16 | Ht 5 ' 2" (1.575 m) | Wt 121 lb 4 oz (55 kg) | LMP 05/06/2018 (Within Days) | BMI 22.18 kg/m Pregravid BMI: 20.5 Physical Exam Vitals reviewed. Constitutional: She is oriented to person, place, and time. She appears well- developed, well-nourished and well-groomed. She has no deformities. Neck: No tenderness and no mass. No thyroid nodules and no thyromegaly palpated. Cardiovascular: Regular rate and rhythm. No murmur auscultated. Pulmonary/Chest: Breath sounds clear to auscultation. Normal inspiratory effort. Abdominal: Abdomen is soft. No mass palpated. No tenderness present. There is no guarding. Neuro/Psychiatric: She has a normal mood and affect. She is oriented to person, place, and time. Skin: Skin normal. No lesion and no rash present. Breast: Right breast exhibits no mass, no nipple discharge and no tenderness. Left breast exhibits no mass, no nipple discharge and no tenderness. Normal left breast and normal right breast Rectal: normal rectum External genitalia: Normal external genitalia appropriate for age. Normal hair distribution. No labial lesion. Narrow Fabric Calenderer present for the exam: Krystyna Villalta RN Vagina:Normal vagina. No lesion inspected. No abnormal vaginal discharge found. Cervix: Normal cervix. No lesion. No tenderness and no discharge present. Uterus: Uterus is normal size and non-tender. 6cm Normal uterus Adnexa: Right adnexa without tenderness or mass. Left adnexa without tenderness or mass. Normal leftadnexa and normal right adnexa Anus/perineum: Normal perineum. Assessment/Plan Rubella: Equivocal VZV: Immune BMI: 22.18 Td:2018 Pap Smear: N/A Gardasil:2010 Mammogram: N/A Guaiac:N/A Colonoscopy:N/A Well woman exam (primary encounter diagnosis) Comment: Routine WWE Plan: Denies zika virus risk, signs and symptoms such as fever,rash,joint pain, conjunctivitis (red eyes), muscle pain, headaches; outside [place] travel to areas affected by zika, and FOB exposure to zika.Educated on use of mosquito repellent. Encounter for initial prescription of implantable subdermal contraceptive Nexplanon in place Comment: Patient desires Nexplanon Plan: POCT TEST, etonogestrel (NEXPLANON) implant 68 mg Patient desires NHexplanon for contraception. Provider has reviewed risks , benefits and alternatives contraception methods. Provider has also reviewed use, side effects and effectiveness of desires BCM vs other BCM. Encouraged abstinence until menses. Encouraged use of condoms as back up x 1 month and for safer sex. Dysuria Comment: patient reports pain with urination. Plan: POCT URINALYSIS W/O SPECIFIC GRAVITY, URINE CULTURE, Nitrofurantoin&Nit. Macrocryst (MACROBID) 100 mg capsule Return to clinic in 1 year for WWE or PRN. Discussed treatment options. Medications as ordered. Reviewed patient instructions and provided printed copy. This visit did not involve counseling and coordination that comprised more than 50% of the visit time. LESLIE Dimas 03/07/2019 2:43 PM Krystyna Vega RN - 03/07/2019 10:30 AM CDT18 year old presented to the clinic for WWE. 1) Previous BCM: None, recently 2) Desired BCM: Nexplanon 3) LMP: Recently 4) Last [place]: Prior to giving 5) Last Pap: N/a Results: N/a HPV Results n/a 6) Tdap in last 10 years? 11/30/2018 7) HPV Vaccines 03/03/2011 and 11/21/2010 8) C/O concerns with having recurrent UTIs. No symptoms at this time. 9) Patient denies history of physical, emotional, or sexual abuse. Patient states she currently feels safe at home. documented in this encounter Plan of Treatment Name Type Priority Associated Diagnoses Date/Time URINE CULTURE LAB Routine Dysuria 03/07/2019 11:20 AM CDT Health Maintenance Due Date Last Done Comments MENINGOCOCCAL B VACCINES (1 of 2008 2 - Risk Bexsero 2-dose series) HPV VACCINES (3 - Female 05/26/2011 03/03/2011, 2-dose series) 11/21/2010 INFLUENZA VACCINE (#1) 2019 CHLAMYDIA SCREENING 01/20/2020 01/19/2019, 09/06/2018 DTaP,Tdap,and Td [...] Associated Comments Diagnosis POCT URINALYSIS W/O Routine 03/07/2019 10:34 AM Dysuria Results for this SPECIFIC GRAVITY CDT procedure are in the results section. POCT TEST Routine 03/07/2019 10:[address] Results for this CDT procedure are in the results section. documented in this encounter Results POCT URINALYSIS W/O SPECIFIC GRAVITY (03/07/2019 10:34 AM CDT) POCT PH U 5 5 - 8 mg/dl POCT U LEUK EST 2+ Negative - Negative POCT U NIT neg Negative - Negative POCT U PROT trace Negative - Negative POCT U GLU neg Negative - Negative POCT U KETONE neg Negative - Negative POCT U BLD neg Negative - Negative Specimen Urine - URINE, CLEAN CATCH POCT TEST (03/07/2019 10:30 AM CDT) POCT PREG Negative On board controls acceptable Yes with C Line POCT PREG LOT # POCT PREG TEST DATE Specimen Urine - URINE, CLEAN CATCH documented in this encounter Visit Diagnoses Diagnosis Well woman exam - Primary Routine general medical examination at a health care facility Encounter for initial prescription of implantable subdermal contraceptive Nexplanon in place Presence of subdermal contraceptive device Dysuria documented in this encounter Administered Medications Medication Order MAR Action Action Date Dose Rate Site etonogestrel (NEXPLANON) implant Given 03/07/2019 11:18 AM CDT 68 mg 68 mg 68 mg, Subdermal, ONCE NOW, 1 dose, 03/07/19 at 1230, Routine, Use approved by: ACADEMIC GUIDANCE SPECIALIST documented in this encounter Insurance Payer Benefit Plan / Subscriber ID Effective Phone Address Type Group Dates [place] xxxxxxxxx 2018-[address] Medicaid HEALTHCARE [place] [facility] [id number] MANAGED MEDICAID [place], [place]ICA[place] documented as of this encounter Advance Directives Name Relationship Healthcare Agent Communication Relationship Araceli Srivastava Mother Primary healthcare agent
--- OUTSIDE RECORDS SUMMARY | 2019-04-03 19:47 | XMS REPORT | Summary of Care ---
:2000 Author Organization [facility] Address [address] [place] [id number] Care Team Providers Name Role Phone Jacqueline Chandra MEMORIAL MARKER DESIGNER Primary Care Provider Simran Zavaleta Insurance Hmo Reason for Visit Reason Comments Well Woman Exam NEXPLANON insert Encounter Details Date Type Department Care Team Description 03/07/2019 Office Visit [facility]- Jacqueline Chandra Well woman exam (Primary Dx); LESLIE Alonzo Encounter for initial prescription of implantable subdermal contraceptive; [address]; [place], [place] [id number] [place], [place] [address] Allergies No Known Allergiesdocumented as of this encounter (statuses as of 03/07/2019) Medications Medication Sig Dispensed Refills Start Date End Date Status vit Take 1 Packet by 30 Each 6 09/06/2018 Active 40-urva-fnhbc-dha mouth daily. (SELECT-OB + DHA) 29 mg [...] and for safer sex. Nexplanon Lot #: [id number] Year removal date: 03/07/2022 Patient palpated implant: [...] file Gets together: Not on file Attends voodoo service: Not on file Active member of [...] herself and . Patient has 1 dog. Synagogue preference Nondenominational. Social History Substance and Sexual Activity Sexual [...] age. Normal hair distribution. No labial lesion. Back End Engineer present for the exam: Krystyna Villalta RN [...] BCM: Nexplanon 3) LMP: Recently 4) Last [place]: Prior to giving 5) Last Pap: N/a [...] 03/07/19 at 1230, Routine, Use approved by: PROJECT COACH documented in this encounter Insurance Payer Benefit Plan / Subscriber ID Effective Phone Address Type Group Dates [place]AN[place] xxxxxxxxx 2018-[address] Medicaid [place] [id number] MANAGED MEDICAID [place] documented as of this encounter Advance Directives Name Relationship Healthcare Agent Communication Relationship Araceli Srivastava Mother Primary healthcare agent
--- OUTSIDE RECORDS SUMMARY | 2019-04-03 19:47 | XMS REPORT | Summary of Care ---
:2000 Author Organization [facility] Address [address] [place] [address] Care Team Providers Name Role Phone Jacqueline [...] , born in hospital by vaginal delivery [address] [place] [address] Procedures DISCHARGE FOLLOW-UP: [facility] [place] [address] Encounter Details Date Type Department Care Team Description 02/14/2019 Routine [facility]- Jacqueline Chandra care and examination of lactating mother (Primary Dx); Visit LESLIE Alonzo Dysuria [address] [place], [place] [address] [place], [place] [phone] [address] [phone] Allergies No Known Allergiesdocumented as of this encounter (statuses as of 02/22/2019) Medications Medication Sig Dispensed Refills Start Date End Date Status vit Take 1 Packet by 30 Each 6 09/06/2018 Active 76-ijyr-wtnql-dha mouth daily. (SELECT-OB + DHA) 29 mg [...] as of this encounter (statuses as of 02/22/2019) Active Problems Problem Noted Date ROM (rupture of membranes), premature 01/24/2019 37 weeks gestation of 01/24/2019 Anemia, antepartum, third trimester 01/24/2019 Liveborn infant, of [place] , born in hospital by vaginal 2018 delivery Muscle spasm 11/02/2018 Rubella non-immune status, antepartum 09/07/2018 Overview: Address pp Primigravida in third trimester 09/06/2018 High risk , antepartum 09/06/2018 documented as of this encounter (statuses as of 02/22/2019) Resolved Problems Problem Noted Date Resolved Date Urinary tract infection without hematuria, site unspecified 11/22/20182018 documented as of this encounter (statuses as of 02/22/2019) Immunizations Name Administration Dates Next Due DTAP [...] in this encounter Progress Notes Jacqueline Chandra, CARRIAGE FEEDER - 02/14/2019 10:15 AM CDT Chief complaint: [...] file Gets together: Not on file Attends taoism service: Not on file Active member of [...] acid (vitamin c), ferrous sulfate, and vit 98-tugv-mhhfu-dha. Review of Systems Constitutional: Negative for activity [...] genitalia: Normal external genitalia appropriate for age. Printing Gray Cloth Tender present for the exam: Krystyna Villalta RN [...] vaginal 2) Patient delivered on 01/24/2019 at [facility] 3) Patient is currently 4) Desired BCM: nexplanon 5) Patient denies pp depression Lochia: light spotting, brown/at times can be red. C/O: burning pain after urination, pain scale 7/10. Also is feeling numbness on the left thigh. documented in this encounter Plan of Treatment Date Type Specialty Care Team Description 03/07/2019 Office Visit OB Satellites Jacqueline Chandra, CARRIAGE FEEDER [address] [place] [address] Health Maintenance Due Date Last Done Comments [...] Procedure Name Priority Date/Time Associated Comments Diagnosis URINE CULTURE Routine 02/14/2019 11:09 AM Dysuria Results for this CDT procedure are in the results section. POCT URINALYSIS W/O Routine 02/14/2019 10:56 AM Dysuria Results for this SPECIFIC GRAVITY CDT procedure are in the results section. documented in this encounter Results URINE CULTURE (02/14/2019 11:09 AM CDT) URINE CULTURE 10,000 - 100,000 [facility] CFU/mL mixed aerobic SERVICES organisms - suggests endogenous microbial contamination Specimen Urine - URINE, CLEAN CATCH Performing Organization Address City/State/Zipcode Phone Number [facility] CLIA: [id number], [address] [place] [address] [facility] POCT URINALYSIS W/O SPECIFIC GRAVITY (02/14/2019 10:56 [...] 2018-[place] [id number] MA[place]ED MEDICA[place] documented as of this encounter Advance Directives Name Relationship Healthcare Agent Communication Relationship Araceli Srivastava Mother Primary healthcare agent
--- OUTSIDE RECORDS SUMMARY | 2019-04-03 19:48 | XMS REPORT | Summary of Care ---
:2000 Author Organization [facility] Address [address] [place] [address] Care Team Providers Name Role Phone Jacqueline ChandraP Primary Care Provider Simran Zavaleta Insurance Hmo Encounter Details Date Type Department Care Team Description 03/15/2019 Orders Only [facility] Doctor Unassigned, No [address] [facility] [place] [address] [address] [place] [address] Allergies No Known Allergiesdocumented as of this encounter (statuses as of 03/29/2019) Medications Medication Sig Dispensed Refills Start Date End Date Status vit Take 1 Packet by 30 Each 6 09/06/2018 Active 23-sgle-ynksx-dha mouth daily. (SELECT-OB + DHA) 29 mg [...] as of this encounter (statuses as of 03/29/2019) Active Problems Problem Noted Date Well woman exam 03/07/[address] 03/07/2019 Dysuria 03/07/2019 documented as of this encounter (statuses as of 03/29/2019) Resolved Problems Problem Noted Date Resolved Date [...] as of this encounter (statuses as of 03/29/2019) Immunizations Name Administration Dates Next Due DTAP [...] filedocumented in this encounter Plan of Treatment Health Maintenance Due Date Last Done Comments [...] encounter Procedures Procedure Name Priority Date/Time Associated Diagnosis Comments DME/SUPPLY JUSTIFICATION Routine 03/15/2019 12:01 AM CDT documented in this encounter Results Not on filedocumented in this encounter Insurance Payer Benefit Plan / Subscriber ID Effective Phone Address Type Group Dates [place] xxxxxxxxx 2018-[place] Medicaid [facility] [facility] [place] [id number] MANAGED MEDICAID [place] documented as of this encounter Advance Directives Name Relationship Healthcare Agent Communication Relationship Araceli Srivastava Mother Primary healthcare agent
--- OUTSIDE RECORDS SUMMARY | 2019-04-03 19:48 | XMS REPORT | Summary of Care ---
:2000 Author Organization [facility] Address [address] [place] [address] Care Team Providers Name Role Phone Jacqueline Chandra Primary Care Provider Simran Zavaleta Insurance Hmo Encounter Details Date Type Department Care Team Description 03/07/2019 Orders Only [facility] Doctor Unassigned, No 301 [facility] [place] [facility] [place] [address] [address] [place] [address] Allergies No Known Allergiesdocumented as of this encounter (statuses as of 03/17/2019) Medications Medication Sig Dispensed Refills Start Date End Date Status vit Take 1 Packet by 30 Each 6 09/06/2018 Active 49-qnjp-jwben-dha mouth daily. (SELECT-OB + DHA) 29 mg [...] times daily for capsuleIndications: 10 days. Dysuria documented as of this encounter (statuses as of 03/17/2019) Active Problems Problem Noted Date Well woman exam 03/07/[address] 03/07/2019 Dysuria 03/07/2019 documented as of this encounter (statuses as of 03/17/2019) Resolved Problems Problem Noted Date Resolved Date ROM (rupture of membranes), premature 01/24/2019 03/07/2019 37 weeks gestation of 01/24/2019 03/07/2019 Anemia, antepartum, third trimester 01/24/2019 03/07/2019 Liveborn , of [place] , born in hospital by 01/24/201903/07 vaginal delivery Urinary tract infection without hematuria, site unspecified 11/22/20182018 Muscle spasm 11/02/2018 03/07/2019 Rubella non-immune status, antepartum 09/07/2018 03/07/2019 Overview: Address pp Primigravida in third trimester 09/06/2018 03/07/2019 High risk , antepartum 09/06/2018 03/07/2019 documented as of this encounter (statuses as of 03/17/2019) Immunizations Name Administration Dates Next Due DTAP [...] Procedure Name Priority Date/Time Associated Diagnosis Comments DISCLOSURE AND CONSENT, Routine 03/07/2019 12:01 AM MEDICAL AND SURGICAL CDT PROCEDURES documented in this encounter Results Not on filedocumented in this encounter Insurance Payer Benefit Plan / Subscriber ID Effective Phone Address Type Group Dates [place] xxxxxxxxx 2018-[place] [id number] [place] MEDICA[place] documented as of this encounter Advance Directives Name Relationship Healthcare Agent Communication Relationship Araceli Srivastava Mother Primary healthcare agent
[2019-04-03] MEDS ORDERED: NA CHLORIDE 0.9% 1,000 ML ONE (20:12)
[2019-04-03] MEDS ORDERED: dexAMETHasone 10 MG/ML VIAL ONE (20:12)
[2019-04-03] MEDS ORDERED: DIPHENHYDRAMINE 50 MG/ML VIAL ONE (20:12)
[2019-04-03] MEDS ORDERED: FAMOTIDINE 20 MG/2 ML VIAL IV ONE (20:12)
--- NOTE | 2019-04-03 21:21 | ER ---
Nurse's Notes [facility] Name: Caroline Valentin Age: 18 yrs Sex: Female : 2000 Arrival Date: 04/03/2019 Time: 19:46 Bed 14 [facility] MD: Diagnosis: Urticaria, unspecified Presentation: 04/03 19:47 Presenting complaint: Patient states: got into the apartment pool for the first time dm5 today. Started getting hives arms, legs, neck, feet, mouth and around nose. Transition of care: patient was not received from another setting of care. Onset of symptoms was April 03, 2019. Risk Assessment: Do you want to hurt yourself or someone else? Patient reports no desire to harm self or others. 19:47 Method Of Arrival: Ambulatory dm5 19:47 Acuity: SHAWANDA 3 dm5 20:01 Initial Sepsis Screen: Does the patient meet any 2 criteria? No. Patient's initial jd3 sepsis screen is negative. Does the patient have a suspected source of infection? No. Patient's initial sepsis screen is negative. Care prior to arrival: None. 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 - Social history:: Smoking status: unknown. - Ebola Screening: : Patient negative for fever greater than or equal to 101.5 degrees Fahrenheit, and additional compatible Ebola Virus Disease symptoms. Screenin:00 Abuse screen: Denies threats or abuse. Nutritional screening: No deficits noted. jd3 Tuberculosis screening: No symptoms or risk factors identified. Fall Risk Ambulatory Aid- None/Bed Rest/Nurse Assist (0 pts). Gait- Normal/Bed Rest/Wheelchair (0 pts) Mental Status- Oriented to own ability (0 pts). Total Elise Fall Scale indicates No Risk (0-24 pts). Assessment: 19:58 General: Appears in no apparent distress. uncomfortable, Behavior is calm, cooperative, jd3 appropriate for age. Pain: Denies pain. Neuro: Level of Consciousness is awake, alert, obeys commands, Oriented to person, place, time, situation. Cardiovascular: Denies chest pain, Capillary refill < 3 seconds Patient's skin is warm and dry. Respiratory: Reports shortness of breath at rest Airway is patent Respiratory effort is even, unlabored, Respiratory pattern is regular, symmetrical, Breath sounds are clear bilaterally. GI: No signs and/or symptoms were reported involving the gastrointestinal system. : No signs and/or symptoms were reported regarding the genitourinary system. EENT: Reports reports feeling like her throat is swelling.. Derm: Skin is intact, Skin is dry, Skin is normal, Skin temperature is warm. Musculoskeletal: Circulation, motion, and sensation intact. Range of motion: intact in all extremities, Swelling present in upper lip and lower lip. 21:23 Reassessment: Patient appears in no apparent distress at this time. Patient is alert, ca1 oriented x 3, equal unlabored respirations, skin warm/dry/pink. Patient states feeling better. Patient states symptoms have improved. Vital Signs: 19:49 BP 121 / 90; Pulse 99; Resp 18; Temp 98.6; Pulse Ox 98% on R/A; Weight 54.43 kg (R); dm5 Height 5 ft. 2 in. (157.48 cm); Pain 0/10; 21:23 BP 105 / 63; Pulse 76; Resp 17 S; Pulse Ox 100% on R/A; ca1 19:49 Body Mass Index 21.95 (54.43 kg, 157.48 cm) 5 ED Course: 19:46 Patient arrived in ED. cf2 19:49 Triage completed. dm5 19:49 Arm band placed on left wrist. Patient placed in an exam room. 5 19:58 Preston De La Cruz, DONTRELL is Primary Nurse. j 19:59 Edgard Lopez PA is PHCP. [facility] 19:59 Dami Westbrook MD is Attending Physician. [facility] 20:00 Patient has correct armband on for positive identification. Bed in low position. Call j light in reach. Side rails up X 1. Adult w/ patient. 20:22 Inserted saline lock: 22 gauge in right antecubital area, using aseptic technique. jd3 21:27 No provider procedures requiring assistance completed. Patient did not have IV access ca1 during this emergency room visit. Administered Medications: 20:22 Drug: NS 0.9% 1000 ml Route: IV; Rate: 1 bolus; Site: right antecubital; jd3 20:22 Drug: Decadron - Dexamethasone 10 mg Route: IVP; Site: right antecubital; jd3 20:22 Drug: diphenhydrAMINE 12.5 mg Route: IVP; Site: right antecubital; jd3 20:22 Drug: Pepcid 20 mg Route: IVP; Site: right antecubital; jd3 Outcome: 21:20 Discharge ordered by MD. sweet 21:27 Discharged to home ambulatory, with family. ca1 21:27 Condition: stable 21:27 Discharge instructions given to patient, Instructed on discharge instructions, follow up and referral plans. Demonstrated understanding of instructions, follow-up care. 21:28 Patient left the ED. ca1 Signatures: Shereen Nicole RN RN dm5 Edgard Lopez PA PA jmm Davies, Jonathon, RN RN jEstelle Lam RN RN ca1 Sammi Garcia cf2 Corrections: (The following items were deleted from the chart) 20:01 19:58 Musculoskeletal: Circulation, motion, and sensation intact. Range of motion: jd3 intact in all extremities, jd3
--- NOTE | 2019-04-03 21:22 | EDPHYS ---
Physician Documentation [facility] Name: Caroline Valentin Age: 18 yrs Sex: Female : 2000 Arrival Date: 04/03/2019 Time: 19:46 Bed 14 Private MD: ED Physician Dami Westbrook HPI: 04/03 20:01 This 18 yrs old Female presents to ER via Ambulatory with complaints of jmm Shortness Of Breath, Rash. 20:01 The patient's rash thought to be caused by an unknown cause. Onset: The jmm symptoms/episode began/occurred acutely, just prior to arrival. Associated signs and symptoms: Pertinent positives: difficulty breathing, itching, Pertinent negatives: swelling of lips, vomiting, wheezing. This is a 18 year old female with no chronic medical conditions that presents to the ED with complains of rash and hives with shortness of breath which occurred after swimming in a pool. Denies vomiting or abdominal pain. . 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 - Social history:: Smoking status: unknown. - Ebola Screening: : Patient negative for fever greater than or equal to 101.5 degrees Fahrenheit, and additional compatible Ebola Virus Disease symptoms. ROS: 20:01 Constitutional: Negative for fever, chills, and weight loss, Cardiovascular: Negative jmm for chest pain, palpitations, and edema. 20:01 Respiratory: Positive for shortness of breath. 20:01 Abdomen/GI: Negative for abdominal pain, nausea and vomiting. 20:01 Skin: Positive for rash. 20:01 All other systems are negative. Exam: 20:01 Constitutional: This is a well developed, well nourished patient who is awake, alert, jmm and in no acute distress. Head/Face: atraumatic. Eyes: EOMI, no conjunctival erythema appreciated ENT: Moist Mucus Membranes Neck: Trachea midline, Supple Chest/axilla: Normal chest wall appearance and motion. Cardiovascular: Regular rate and rhythm. No edema appreciated Respiratory: Normal respirations, no respiratory distress appreciated Abdomen/GI: Non distended, soft Back: Normal ROM 20:01 Skin: hives noted to the arms, neck, and chest wall. . 20:01 Neuro: Orientation: is normal, Mentation: is normal, Memory: is normal. 20:01 Psych: Behavior/mood is pleasant, cooperative. Vital Signs: 19:49 BP 121 / 90; Pulse 99; Resp 18; Temp 98.6; Pulse Ox 98% on R/A; Weight 54.43 kg (R); dm5 Height 5 ft. 2 in. (157.48 cm); Pain 0/10; 21:23 BP 105 / 63; Pulse 76; Resp 17 S; Pulse Ox 100% on R/A; ca1 19:49 Body Mass Index 21.95 (54.43 kg, 157.48 cm) dm5 MDM: 20:01 Patient medically screened. [facility] 21:20 Data reviewed: vital signs, nurses notes. Counseling: I had a detailed discussion with kee the patient and/or guardian regarding: the historical points, exam findings, and any diagnostic results supporting the discharge/admit diagnosis, the need for outpatient follow up, to return to the emergency department if symptoms worsen or persist or if there are any questions or concerns that arise at home. ED course: rash relieved in the ED. Patient given strict return precautions. patient understood and agrees with the plan of care. . 04/03 20:04 Order name: Saline Lock; Complete Time: 20:22 [facility] Administered Medications: 20:22 Drug: NS 0.9% 1000 ml Route: IV; Rate: 1 bolus; Site: right antecubital; jd3 20:22 Drug: Decadron - Dexamethasone 10 mg Route: IVP; Site: right antecubital; jd3 20:22 Drug: diphenhydrAMINE 12.5 mg Route: IVP; Site: right antecubital; jd3 20:22 Drug: Pepcid 20 mg Route: IVP; Site: right antecubital; jd3 Disposition: 21:49 Co-signature as Attending Physician, Dami Westbrook MD. rn Disposition: 04/03/19 21:20 Discharged to Home. Impression: Urticaria, unspecified. - Condition is Stable. - Discharge Instructions: Hives. - Medication Reconciliation Form, Thank You Letter, Antibiotic Education, Prescription Opioid Use form. - Follow up: Private Physician; When: 2 - 3 days; Reason: Recheck today's complaints, Continuance of care, Re-evaluation by your physician. Signatures: Shereen Nicole, RN RN dm5 Edgard Lopez PA PA jmm Nieto, Roman, MD MD rn De La CruzPreston RN RN jd3 AcEstelle george RN RN ca1 Corrections: (The following items were deleted from the chart) 21:28 21:20 04/03/2019 21:20 Discharged to Home. Impression: Urticaria, unspecified. ca1 Condition is Stable. Forms are Medication Reconciliation Form, Thank You Letter, Antibiotic Education, Prescription Opioid Use. Follow up: Private Physician; When: 2 - 3 days; Reason: Recheck today's complaints, Continuance of care, Re-evaluation by your physician. kee
[2019-04-03 22:46] VITALS: TEMP 98.6
[2019-04-03 22:47] VITALS: BP 105/63; O2SAT 100
== END 2019-04-03 21:28 | disposition home or self-care (01) ==
LOC: ER 19:43
DX: L50.9 Urticaria, unspecified (principal)
CPT/HCPCS: 96375; 96374; 99283; J1100; J7030

== ENCOUNTER 2019-05-10 11:16 | Emergency (ER) | payer MEDICAID, SELFPAY ==
[2019-05-10] MEDS ORDERED: HYDROCODONE/APAP 10/325 TAB ONE (12:19)
[2019-05-10] MEDS ORDERED: IBUPROFEN 400 MG TAB ONE (12:42)
[2019-05-10] MEDS ORDERED: IBUPROFEN 200 MG TAB PO ONE (12:42)
--- NOTE | 2019-05-10 13:09 | EDPHYS ---
Physician Documentation [facility] Name: Caroline Valentin Age: 18 yrs Sex: Female : 2000 Arrival Date: 05/10/2019 Time: 11:20 Bed 10 Private MD: ED Physician Dami Westbrook HPI: 05/10 12:16 This 18 yrs old Female presents to ER via Ambulatory with complaints of Toe pm1 Injury. 12:16 The patient presents with pain, that is acute. The complaints affect the right foot. pm1 Context: The problem was sustained at home, resulted from moving dresser and dropped the dresser on her right foot, the patient can fully bear weight, the patient is able to ambulate. Onset: The symptoms/episode began/occurred today. Modifying factors: The symptoms are alleviated by elevation of extremity, the symptoms are aggravated by weight bearing. Associated signs and symptoms: Pertinent negatives: calf tenderness, fever, numbness, swelling, tingling. Severity of symptoms: in the emergency department the symptoms are unchanged. The patient has not experienced similar symptoms in the past. The patient has not recently seen a physician. 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 - Social history:: Smoking status: Patient/guardian denies using tobacco. - Ebola Screening: : No symptoms or risks identified at this time. ROS: 12:16 MS/extremity: Positive for pain, of the right foot, Negative for decreased range of pm1 motion, deformity, ecchymosis, laceration, paresthesias, tingling. 12:16 Constitutional: Negative for fever, chills, and weight loss, Cardiovascular: Negative for chest pain, palpitations, and edema, Respiratory: Negative for shortness of breath, cough, wheezing, and pleuritic chest pain, Skin: Negative for injury, rash, and discoloration. 12:16 All other systems are negative. Exam: 12:16 Constitutional: This is a well developed, well nourished patient who is awake, alert, pm1 and in no acute distress. Head/Face: Normocephalic, atraumatic. Chest/axilla: Normal chest wall appearance and motion. Nontender with no deformity. No lesions are appreciated. Cardiovascular: Regular rate and rhythm with a normal S1 and S2. No gallops, murmurs, or rubs. Normal PMI, no JVD. No pulse deficits. Respiratory: Lungs have equal breath sounds bilaterally, clear to auscultation and percussion. No rales, rhonchi or wheezes noted. No increased work of breathing, no retractions or nasal flaring. Back: No spinal tenderness. No costovertebral tenderness. Full range of motion. Skin: Warm, dry with normal turgor. Normal color with no rashes, no lesions, and no evidence of cellulitis. 12:16 Musculoskeletal/extremity: Extremities: grossly normal except: noted in the right first toe PIP: There is no evidence of decreased ROM, deformity, ecchymosis. Vital Signs: 11:45 BP 137 / 90; Pulse 91; Resp 16; Temp 98.2; Pulse Ox 100% on R/A; Weight 54.43 kg; la1 Height 5 ft. 2 in. (157.48 cm); 11:45 Body Mass Index 21.95 (54.43 kg, 157.48 cm) la1 MDM: 12:06 Patient medically screened. pm1 13:07 Data reviewed: vital signs. Data interpreted: Pulse oximetry: on room air is 100 %. pm1 Interpretation: normal. Counseling: I had a detailed discussion with the patient and/or guardian regarding: the historical points, exam findings, and any diagnostic results supporting the discharge/admit diagnosis, radiology results, the need for outpatient follow up, to return to the emergency department if symptoms worsen or persist or if there are any questions or concerns that arise at home. 05/10 11:46 Order name: Foot Right 3 View XRAY la1 Administered Medications: 12:29 Not Given (Other Intervention Used): [place] 10 mg-325 mg 1 tabs PO once; RASS on ADMIN: dm5 Combtv4, Very Agttd3, Agttd2, Rstlss1, AlertClm0, Drwsy-1, Lt Sdtn-2, Mod Sdtn-3, Dp Sdtn-4, UnArsble-5 12:45 Drug: Ibuprofen 600 mg Route: PO; la1 Disposition: 16:30 Co-signature as Attending Physician, Dami Westbrook MD. rn Disposition: 05/10/19 13:08 Discharged to Home. Impression: Contusion of right foot. - Condition is Stable. - Discharge Instructions: Foot Contusion. - Medication Reconciliation Form, Thank You Letter, Antibiotic Education, Prescription Opioid Use form. - Follow up: Emergency Department; When: As needed; Reason: Worsening of condition. Follow up: Private Physician; When: 2 - 3 days; Reason: Recheck today's complaints, Continuance of care, Re-evaluation by your physician. - Problem is new. - Symptoms have improved. Signatures: Dispatcher [employer] EDMS Dami Westbrook MD MD rn Attema, Lee, RN RN la1 Yinka Garcia NP MUNICIPAL ENGINEER pm1 Shereen Nicole RN dm5 Corrections: (The following items were deleted from the chart) 13:25 13:08 05/10/2019 13:08 Discharged to Home. Impression: Contusion of right foot. la1 Condition is Stable. Forms are Medication Reconciliation Form, Thank You Letter, Antibiotic Education, Prescription Opioid Use. Follow up: Emergency Department; When: As needed; Reason: Worsening of condition. Follow up: Private Physician; When: 2 - 3 days; Reason: Recheck today's complaints, Continuance of care, Re-evaluation by your physician. Problem is new. Symptoms have improved. pm1
--- NOTE | 2019-05-10 13:09 | ER ---
Nurse's Notes [facility] Name: Caroline Valentin Age: 18 yrs Sex: Female : 2000 Arrival Date: 05/10/2019 Time: 11:20 Bed 10 Private MD: Diagnosis: Contusion of right foot Presentation: 05/10 11:45 Presenting complaint: Patient states: I was moving a dresser and it got put down on my la1 right big toe. Transition of care: patient was not received from another setting of care. Onset of symptoms was May 10, 2019. Risk Assessment: Do you want to hurt yourself or someone else? Patient reports no desire to harm self or others. Initial Sepsis Screen: Does the patient meet any 2 criteria? No. Patient's initial sepsis screen is negative. Does the patient have a suspected source of infection? No. Patient's initial sepsis screen is negative. Care prior to arrival: None. 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 - Social history:: Smoking status: Patient/guardian denies using tobacco. - Ebola Screening: : No symptoms or risks identified at this time. Screenin:03 Abuse screen: Denies threats or abuse. Nutritional screening: No deficits noted. la1 Tuberculosis screening: No symptoms or risk factors identified. Fall Risk None identified. Assessment: 12:03 General: Appears in no apparent distress. Behavior is calm, cooperative. Pain: la1 Complains of pain in right foot. Neuro: Level of Consciousness is awake, alert, obeys commands, Oriented to person, place, time, situation. Cardiovascular: Capillary refill < 3 seconds Patient's skin is warm and dry. Respiratory: Airway is patent Respiratory effort is even, unlabored, Respiratory pattern is regular, symmetrical. GI: No signs and/or symptoms were reported involving the gastrointestinal system. : No signs and/or symptoms were reported regarding the genitourinary system. Musculoskeletal: Capillary refill < 3 seconds, is brisk, in bilateral toes. Vital Signs: 11:45 BP 137 / 90; Pulse 91; Resp 16; Temp 98.2; Pulse Ox 100% on R/A; Weight 54.43 kg; la1 Height 5 ft. 2 in. (157.48 cm); 11:45 Body Mass Index 21.95 (54.43 kg, 157.48 cm) la1 ED Course: 11:20 Patient arrived in ED. mr 11:45 Triage completed. la1 11:46 Arm band placed on right wrist. la1 12:04 Patient has correct armband on for positive identification. la1 12:05 Yinka Garcia NP is PHCP. pm1 12:06 Dami Westbrook MD is Attending Physician. pm1 12:53 Foot Right 3 View XRAY In Process Unspecified. EDMS 13:25 Josue Castaneda, RN is Primary Nurse. la1 13:25 No provider procedures requiring assistance completed. Patient did not have IV access la1 during this emergency room visit. Administered Medications: 12:29 Not Given (Other Intervention Used): [place] 10 mg-325 mg 1 tabs PO once; RASS on ADMIN: dm5 Combtv4, Very Agttd3, Agttd2, Rstlss1, AlertClm0, Drwsy-1, Lt Sdtn-2, Mod Sdtn-3, Dp Sdtn-4, UnArsble-5 12:45 Drug: Ibuprofen 600 mg Route: PO; la1 Outcome: 13:08 Discharge ordered by . pm1 13:25 Discharged to home ambulatory. la1 13:25 Condition: stable 13:25 Discharge instructions given to patient, Instructed on discharge instructions, follow up and referral plans. medication usage, Demonstrated understanding of instructions, follow-up care. 13:25 Patient left the ED. la1 Signatures: Dispatcher [employer] [facility] Curtis Joyce mr Josue Castaneda, RN RN la1 Yinka Garcia NP TRUCK CAR AND BUS CLEANER pm1 Shereen Nicole RN dm5
[2019-05-10 13:31] VITALS: BP 137/90; TEMP 98.2; O2SAT 100
--- NOTE | 2019-05-10 15:02 | RAD REPORT ---
EXAM DESCRIPTION: RAD - Foot Right 3 View - 05/10/2019 12:55 pm CLINICAL HISTORY: Foot pain, blunt force trauma to the first toe COMPARISON: None. FINDINGS: No fracture, dislocation or periosteal reaction. No air or foreign body in the soft tissues. IMPRESSION: Negative right foot examination.
== END 2019-05-10 13:25 | disposition home or self-care (01) ==
LOC: ER 11:16
DX: S90.31XA Contusion of right foot, initial encounter (principal); W22.8XXA Striking against or struck by other objects, initial encounter; Y93.89 Activity, other specified; Y92.009 Unspecified place in unspecified non-institutional (private) residence as the place of occurrence of the external cause
CPT/HCPCS: 99283

== ENCOUNTER 2019-06-09 10:07 | Emergency (ER) | payer SELFPAY ==
--- OUTSIDE RECORDS SUMMARY | 2019-06-09 10:11 | XMS REPORT ---
:2000 [facility] Address [address] [place] [address] Dr. Dickson [address] [place] [id number] Care Team Providers Name Role Phone Unavailable Unavailable Unavailable Problems This patient has no known problems. Allergies, Adverse Reactions, Alerts This patient has no known allergies or adverse reactions. Medications This patient has no known medications.
[2019-06-09 11:25] LABS: Absolute Lymphocytes (CBC) 2.2 K/uL (0.7-4.9); Basophils % 0.6 % (0-1.3); Hematocrit 35.9 % (36.0-45.0); Lymphocytes % 34.9 % (15.3-44.8); MPV 9.9 fL (7.6-11.3); RBC Red Blood Cell Count 4.54 M/uL (3.86-4.86)
--- NOTE | 2019-06-09 11:27 | RAD REPORT ---
EXAM DESCRIPTION: CT - Head Brain Wo Cont - 06/09/2019 11:19 am CLINICAL HISTORY: Headache, right-sided extremity weakness and numbness COMPARISON: None. TECHNIQUE: Axial 5 mm thick images of the head were obtained without IV contrast. All CT scans are performed using dose optimization technique as appropriate and may include automated exposure control or mA/KV adjustment according to patient size. FINDINGS: No intracranial hemorrhage, mass, edema or shift of mid-line structures. No acute infarcti on changes seen. No abnormal extra-axial fluid collections. Ventricles are normal. Mastoid air cells are clear. Minimal mucosal thickening in the left maxillary sinus. Minimal left dev iation of the mid nasal septum. No acute bony findings. IMPRESSION: No intracranial abnormality identifiable. Patchy mucosal thickening left maxillary sinus. No air-fluid level.
--- NOTE | 2019-06-09 11:43 | RAD REPORT ---
EXAM DESCRIPTION: [place] Single View06/09/2019 11:31 am CLINICAL HISTORY: Chest pain COMPARISON: none FINDINGS: The lungs appear clear of acute infiltrate. The heart is normal size IMPRESSION: No acute abnormalities displayed
[2019-06-09 12:31] LABS: AST/SGOT 22 U/L (15-37); BUN Blood Urea Nitrogen 19 mg/dL (7-18); Bicarbonate 26 mmol/L (21-32); Glucose Level 99 mg/dL (74-106); Potassium 4.3 mmol/L (3.5-5.1); Sodium Level 145 mmol/L (136-145)
[2019-06-09 12:32] LABS: ALT/SGPT 32 U/L (12-78); Albumin 3.8 g/dL (3.4-5.0); Alkaline Phosphatase 100 U/L (45-117); Bilirubin Direct < 0.1 mg/dL (0-0.2); Bilirubin Total 0.3 mg/dL (0.2-1.0); Protein, Total 7.4 g/dL (6.4-8.2)
[2019-06-09 12:33] LABS: Magnesium 2.1 mg/dL (1.8-2.4); NT PRO-BNP 36 pg/mL (<125)
[2019-06-09 12:34] LABS: Folic Acid, (Folate) 18.5 ng/mL (3.1-17.5)
--- NOTE | 2019-06-09 13:10 | RAD REPORT ---
EXAM DESCRIPTION: MRI - C Spine Wo Cont - 06/09/2019 1:02 pm CLINICAL HISTORY: Right-sided arm pain/ numbness COMPARISON: No comparisons TECHNIQUE: Sagittal T1-weighted, T2-weighted and T2-STIR sequences were obtained as well as T2 medic sequence. FINDINGS: Cervical vertebral bodies are normal in height and alignment. No suspicious marrow edema o r marrow replacing process. No paraspinal mass. Cerebellar tonsils and mid-line skull base show no suspicious finding. No significant finding at the C1 and C2 levels. C2-3 level: No significant findings. C3-4 level: Early disc desiccation is evident but no disc bulge or herniation. C4-5 level: Early disc desiccation is evident but no disc bulge or herniation. C5-6 level: No significant findings. C6-7 level: No significant findings. C7-T1 level: No significant findings. Cervical cord shows no focal narrowing, expansion or signal abnormality. IMPRESSION: Early disc desiccation changes are suspected in C3-4 and C4-5. Exam is otherwise unremar kable.
--- NOTE | 2019-06-09 13:11 | RAD REPORT ---
EXAM DESCRIPTION: MRI - Brain Wo Cont - 06/09/2019 1:02 pm CLINICAL HISTORY: Numbness;Weakness, right side COMPARISON: CT head same date TECHNIQUE: Sagittal T1-weighted images were obtained along with axial PD, heavily T2-weighted and T2 -FLAIR images. Axial DWI and ADC mapping sequences were also obtained along with coronal heavily T2-w eighted images. FINDINGS: No intracranial hemorrhage, mass or acute infarction. There is no edema or shift of midlin e structures. No extra-axial fluid collections. Escobar-matter/white matter junction is preserved. Signa l voids are seen as a normal finding in the major intracranial vessels. No globe or orbital content abnormality. No sella or supra sella abnormality. No tonsillar ectopia. Mastoid air cells and paranasal sinuses are clear. IMPRESSION: Negative non-contrast MRI of the Brain.
--- NOTE | 2019-06-09 13:28 | ER ---
Nurse's Notes [facility] Name: Caroline Valentin Age: 18 yrs Sex: Female : 2000 Arrival Date: 06/09/2019 Time: 10:09 Bed 14 Private MD: None, None Diagnosis: Paresthesia of skin;Pain in right arm Presentation: 06/09 10:16 Presenting complaint: Patient states: Pt reports R arm pain and numbness that began 2 ss days ago. Pt states that now her R leg is hurting also with she has intermittent tingling since yesterday. Transition of care: patient was not received from another setting of care. Onset of symptoms was June 07, 2019. Risk Assessment: Do you want to hurt yourself or someone else? Patient reports no desire to harm self or others. Initial Sepsis Screen: Does the patient meet any 2 criteria? No. Patient's initial sepsis screen is negative. Does the patient have a suspected source of infection? No. Patient's initial sepsis screen is negative. Care prior to arrival: None. 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 - Social history:: Smoking status: Patient/guardian denies using tobacco. - Ebola Screening: : Patient denies exposure to infectious person Patient denies travel to an Ebola-affected area in the 21 days before illness onset. Screenin:21 Abuse screen: Denies threats or abuse. Nutritional screening: No deficits noted. rb1 Tuberculosis screening: No symptoms or risk factors identified. Fall Risk None identified. Assessment: 10:21 General: Appears in no apparent distress. comfortable, Behavior is calm, cooperative. rb1 Pain: Complains of pain in right arm and right leg Pain currently is 7 out of 10 on a pain scale. Aggravated by repositioning. Neuro: Level of Consciousness is awake, alert, obeys commands, Oriented to person, place, time, situation, Reports numbness in right arm and right leg. Cardiovascular: Capillary refill < 3 seconds is brisk in bilateral fingers. Respiratory: Airway is patent Respiratory effort is even, unlabored, Respiratory pattern is regular, symmetrical. GI: No signs and/or symptoms were reported involving the gastrointestinal system. : No signs and/or symptoms were reported regarding the genitourinary system. Derm: Skin is pink, warm \T\ dry. Musculoskeletal: Range of motion: intact in all extremities. 11:37 Reassessment: Patient appears in no apparent distress at this time. Patient and/or rb1 family updated on plan of care and expected duration. Pain level reassessed. Patient is alert, oriented x 3, equal unlabored respirations, skin warm/dry/pink. 12:30 Reassessment: PT. went to CT. rb1 13:35 Reassessment: Patient appears in no apparent distress at this time. Patient and/or rb1 family updated on plan of care and expected duration. Pain level reassessed. Patient is alert, oriented x 3, equal unlabored respirations, skin warm/dry/pink. Vital Signs: 10:18 BP 141 / 85; Pulse 86; Resp 14; Temp 97.4(TE); Pulse Ox 100% on R/A; Weight 56.7 kg; ss Height 5 ft. 2 in. (157.48 cm); Pain 5/10; 10:53 BP 118 / 84 Supine; Pulse 82; rb1 10:55 BP 140 / 123 Sitting; Pulse 114; rb1 10:57 BP 130 / 107 Standing; Pulse 122; rb1 12:01 BP 114 / 81; Pulse 96; Resp 17; Temp 97.8; Pulse Ox 98% on R/A; mh5 13:00 BP 104 / 79; Pulse 87; Resp 15; Temp 97.8(O); Pulse Ox 100% ; mh5 10:18 Body Mass Index 22.86 (56.70 kg, 157.48 cm) ss 10:55 Pt. was feeling anxious and crying due to the numbness during this set of vital signs. rb1 NIH Stroke Scale Scores: 11:56 NIHSS Score: 2 jr8 ED Course: 10:09 Patient arrived in ED. ag5 10:09 None, None is Private Physician. ag5 10:18 Triage completed. ss 10:18 Arm band placed on left wrist. ss 10:20 Yinka Garcia NP is PHCP. pm1 10:20 Dami Westbrook MD is Attending Physician. pm1 10:20 Brayan Daniel PA is PHCP. jr8 10:20 Dami Westbrook MD is Attending Physician. jr8 10:21 Maite Tolliver, DONTRELL is Primary Nurse. rb1 10:21 Dami Westbrook MD is Attending Physician. jr8 10:21 Patient has correct armband on for positive identification. Bed in low position. Call rb1 light in reach. Side rails up X 1. Pulse ox on. NIBP on. 11:10 Inserted saline lock: 20 gauge in left antecubital area, using aseptic technique. rb1 ,using aseptic technique. IV was inserted by the student and Raj, Instructor. Blood collected. 11:21 CT Head Brain wo Cont In Process Unspecified. EDMS 11:31 XRAY Chest (1 view) In Process Unspecified. EDMS 12:48 MRI - Brain Wo Cont In Process Unspecified. EDMS 13:02 C Spine Wo Cont In Process Unspecified. EDMS 13:25 Jamie Flowers MD is Referral Physician. jr8 13:43 No provider procedures requiring assistance completed. IV discontinued, intact, rb1 bleeding controlled, No redness/swelling at site. Pressure dressing applied. Administered Medications: No medications were administered Outcome: 13:27 Discharge ordered by . jr8 13:43 Discharged to home ambulatory, with family, Offered the pt. a wheelchair, but she did rb1 not want one. 13:43 Condition: stable 13:43 Discharge instructions given to patient, Instructed on discharge instructions, follow up and referral plans. medication usage, Demonstrated understanding of instructions, follow-up care, medications, Prescriptions given X 1. 13:46 Patient left the ED. rb1 NIH Stroke Scale - NIH Stroke Score Date: 06/09/2019 Time: 11:56 Total Score = 2 1a. Level of Consciousness (LOC) - 0(Alert) 1b. Level of Consciousness (LOC) (Year \T\ Age) - 0(Both) 1c. LOC Commands (Open \T\ Closes Eyes/Rattan Worker) - 0(Both) 2. Best Gaze (Lateral Gaze Paresis) - 0(Normal) 3. Visual Field Loss - 0(No visual loss) 4. Facial Palsy - 0(Normal) 5a. Left Arm: Motor (10-second hold) - 0(No drift) 5b. Right Arm: Motor (10-second hold) - 0(No drift) 6a. Left Leg: Motor (5-second hold - always test supine) - 0(No drift) 6b. Right Leg: Motor (5-second hold - always test supine) - 1(Drift) 7. Limb Ataxia (finger/nose \T\ heel/whatley - test with eyes open) - 0(Absent) 8. Sensory Loss (pinprick arms/legs/face) - 1(Mild to moderate loss) 9. Best Language: Aphasia (description/naming/reading) - 0(No aphasia) 10. Dysarthria (speech clarity - read or repeat words) - 0(Normal) 11. Extinction and Inattention (visual/tactile/auditory/spatial/personal) - 0(No abnormality) Initials: ernestine Signatures: Dispatcher [employer] EDJulee Enrique RN RN ss Brayan Daniel PA PA jr8 Maite Tolliver RN RN [facility] Yinka Garcia, MARIA G OIL WELL ENGINEER brandi1 [facility] Miya Albert 5 Corrections: (The following items were deleted from the chart) 13:15 13:00 BP 104 / 79; Pulse 87bpm; Resp 15bpm; Pulse Ox 100%; rb1 mh5
--- NOTE | 2019-06-09 13:28 | EDPHYS ---
Physician Documentation [facility] Name: Caroline Valentin Age: 18 yrs Sex: Female : 2000 Arrival Date: 06/09/2019 Time: 10:09 Bed 14 Private MD: None, None ED Physician Dami Westbrook HPI: 06/09 11:03 This 18 yrs old Female presents to ER via Ambulatory with complaints of Arm jr8 Pain, Numbness Of Arm, Shoulder Pain. 11:03 The patient's problem is reported as paresthesias, in right upper extremity, in right jr8 lower extremity, weakness, in the right upper extremity, in the right lower extremity. Onset: The symptoms/episode began/occurred acutely, 2 day(s) ago. Duration: The episodes are intermittent. Context: occurred at home, occurred while the patient was at rest, Possible contributing factors include: unknown. The symptoms are alleviated by nothing. The symptoms are aggravated by changing position. Associated signs and symptoms: Pertinent positives: dizziness, numbness, weakness. Severity of symptoms: At their worst the symptoms were moderate in the emergency department the symptoms are unchanged. Patient's baseline: Neuro: alert and fully oriented, Motor: no deficits, Ambulation: walks without assistance, Speech: normal. The patient has not experienced similar symptoms in the past. The patient has not recently seen a physician. Patient stated that two days ago she started to have right arm pain and numbness. Now has extended down to right leg. Was also having headaches and dizziness. Denies trauma . 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 - Social history:: Smoking status: Patient/guardian denies using tobacco. - Ebola Screening: : Patient denies exposure to infectious person Patient denies travel to an Ebola-affected area in the 21 days before illness onset. ROS: 11:53 Eyes: Negative for injury, pain, redness, and discharge, ENT: Negative for injury, jr8 pain, and discharge, Neck: Negative for injury, pain, and swelling, Cardiovascular: Negative for chest pain, palpitations, and edema, Respiratory: Negative for shortness of breath, cough, wheezing, and pleuritic chest pain, Abdomen/GI: Negative for abdominal pain, nausea, vomiting, diarrhea, and constipation, Back: Negative for injury and pain, MS/Extremity: Negative for injury and deformity, Skin: Negative for injury, rash, and discoloration. 11:53 Neuro: Positive for dizziness, headache, numbness, weakness. Exam: 11:53 Radiologist reports: negative for acute findings jr8 11:53 Eyes: Pupils equal round and reactive to light, extra-ocular motions intact. Lids and lashes normal. Conjunctiva and sclera are non-icteric and not injected. Cornea within normal limits. Periorbital areas with no swelling, redness, or edema. ENT: Nares patent. No nasal discharge, no septal abnormalities noted. Tympanic membranes are normal and external auditory canals are clear. Oropharynx with no redness, swelling, or masses, exudates, or evidence of obstruction, uvula midline. Mucous membranes moist. Neck: Trachea midline, no thyromegaly or masses palpated, and no cervical lymphadenopathy. Supple, full range of motion without nuchal rigidity, or vertebral point tenderness. No Meningismus. Cardiovascular: Regular rate and rhythm with a normal S1 and S2. No gallops, murmurs, or rubs. Normal PMI, no JVD. No pulse deficits. Respiratory: Lungs have equal breath sounds bilaterally, clear to auscultation and percussion. No rales, rhonchi or wheezes noted. No increased work of breathing, no retractions or nasal flaring. Abdomen/GI: Soft, non-tender, with normal bowel sounds. No distension or tympany. No guarding or rebound. No evidence of tenderness throughout. Back: No spinal tenderness. No costovertebral tenderness. Full range of motion. Skin: Warm, dry with normal turgor. Normal color with no rashes, no lesions, and no evidence of cellulitis. MS/ Extremity: Pulses equal, no cyanosis. 11:56 Neuro: Orientation: to person, place, time \T\ situation. Mentation: is normal, Memory: jr8 is normal, immediate memory is intact, recent memory is intact, remote memory is intact, Cranial nerves: CN I not tested, CN II- XII are normal as tested, visual campbell are intact. extraocular movements are intact, Facial palsy and sensory deficits are absent. Nystagmus is absent. Speech is clear and appropriate. Tongue strength is normal, Cerebellar function: normal finger to nose testing, heel to whatley testing is normal, Motor: moves all fours, strength is 5/5 in the left arm and left leg, strength is 4/5 in the right arm and right leg, Sensation: numbness, that is mild, of the right arm and right leg, Gait: not tested. seizure activity, is not displayed by the patient, Abnormal movements: there are no abnormal movements. Vital Signs: 10:18 BP 141 / 85; Pulse 86; Resp 14; Temp 97.4(TE); Pulse Ox 100% on R/A; Weight 56.7 kg; ss Height 5 ft. 2 in. (157.48 cm); Pain 5/10; 10:53 BP 118 / 84 Supine; Pulse 82; rb1 10:55 BP 140 / 123 Sitting; Pulse 114; rb1 10:57 BP 130 / 107 Standing; Pulse 122; rb1 12:01 BP 114 / 81; Pulse 96; Resp 17; Temp 97.8; Pulse Ox 98% on R/A; mh5 13:00 BP 104 / 79; Pulse 87; Resp 15; Temp 97.8(O); Pulse Ox 100% ; mh5 10:18 Body Mass Index 22.86 (56.70 kg, 157.48 cm) ss 10:55 Pt. was feeling anxious and crying due to the numbness during this set of vital signs. rb1 NIH Stroke Scale Scores: 11:56 NIHSS Score: 2 jr8 MDM: 10:29 Patient medically screened. jr8 13:23 Data reviewed: vital signs, nurses notes, lab test result(s), EKG, radiologic studies, jr8 CT scan, MRI, plain films, and as a result, I will discharge patient. Data interpreted: Pulse oximetry: on room air is 100 %. Interpretation: normal. Counseling: I had a detailed discussion with the patient and/or guardian regarding: the historical points, exam findings, and any diagnostic results supporting the discharge/admit diagnosis, lab results, radiology results, the need for outpatient follow up, a neurologist, to return to the emergency department if symptoms worsen or persist or if there are any questions or concerns that arise at home. ED course: Discussed with patient that it is unknown why she is having these transient pains and numbness to upper and lower extremity. CT, MRI's, blood work unremarkable for acute concerning findings. Recommend f/u with neurologist at this point. If worse to come back. 06/09 10:50 Order name: Basic Metabolic Panel; Complete Time: 12:37 8 06/09 10:50 Order name: CBC with Diff; Complete Time: 11:45 [facility] 06/09 10:50 Order name: LFT's; Complete Time: 12:37 8 06/09 10:50 Order name: Magnesium; Complete Time: 12:37 8 06/09 10:50 Order name: NT PRO-BNP; Complete Time: 12:37 [facility] 06/09 10:50 Order name: PT-INR; Complete Time: 11:45 [facility] 06/09 10:50 Order name: XRAY Chest (1 view); Complete Time: 11:45 [facility] 06/09 10:50 Order name: EKG; Complete Time: 10:51 [facility] 06/09 10:50 Order name: Cardiac monitoring; Complete Time: 13:36 8 06/09 10:50 Order name: CT Head Brain wo Cont; Complete Time: 11:45 8 06/09 10:51 Order name: B12; Complete Time: 12:37 [facility] 06/09 10:51 Order name: Folic Acid,Serum (folate); Complete Time: 12:37 8 06/09 11:46 Order name: MRI - Brain Wo Cont; Complete Time: 13:15 [facility] 06/09 11:50 Order name: C Spine Wo Cont; Complete Time: 13:15 [facility] 06/09 10:50 Order name: EKG - Nurse/Tech; Complete Time: 13:35 [facility] 06/09 10:50 Order name: IV Saline Lock; Complete Time: 11:42 [facility] 06/09 10:50 Order name: Labs collected and sent; Complete Time: 11:42 [facility] 06/09 10:50 Order name: O2 Per Protocol; Complete Time: 11:03 8 06/09 10:50 Order name: O2 Sat Monitoring; Complete Time: 11:03 [facility] 06/09 11:04 Order name: Orthostatics; Complete Time: 11:04 rb1 Administered Medications: No medications were administered Disposition: 16:02 Co-signature as Attending Physician, Dami Westbrook MD. rn Disposition: 06/09/19 13:27 Discharged to Home. Impression: Paresthesia of skin, Pain in right arm. - Condition is Stable. - Discharge Instructions: Musculoskeletal Pain, Peripheral Neuropathy, Heat Therapy. - Prescriptions for Ibuprofen 800 mg Oral Tablet - take 1 tablet by ORAL route every 12 hours As needed take with food; 20 tablet. - Medication Reconciliation Form, Thank You Letter, Antibiotic Education, Prescription Opioid Use form. - Follow up: Jamie Flowers MD; When: 2 - 3 days; Reason: Recheck today's complaints, Continuance of care, Re-evaluation by your physician. - Problem is new. - Symptoms have improved. NIH Stroke Scale - NIH Stroke Score Date: 06/09/2019 Time: 11:56 Total Score = 2 1a. Level of Consciousness (LOC) - 0(Alert) 1b. Level of Consciousness (LOC) (Year \T\ Age) - 0(Both) 1c. LOC Commands (Open \T\ Closes Eyes/Independent Insurance Adjuster) - 0(Both) 2. Best Gaze (Lateral Gaze Paresis) - 0(Normal) 3. Visual Field Loss - 0(No visual loss) 4. Facial Palsy - 0(Normal) 5a. Left Arm: Motor (10-second hold) - 0(No drift) 5b. Right Arm: Motor (10-second hold) - 0(No drift) 6a. Left Leg: Motor (5-second hold - always test supine) - 0(No drift) 6b. Right Leg: Motor (5-second hold - always test supine) - 1(Drift) 7. Limb Ataxia (finger/nose \T\ heel/whatley - test with eyes open) - 0(Absent) 8. Sensory Loss (pinprick arms/legs/face) - 1(Mild to moderate loss) 9. Best Language: Aphasia (description/naming/reading) - 0(No aphasia) 10. Dysarthria (speech clarity - read or repeat words) - 0(Normal) 11. Extinction and Inattention (visual/tactile/auditory/spatial/personal) - 0(No abnormality) Initials: jrBarrett Signatures: Dispatcher [employer] EDMA Dami Westbrook MD MD rn Smirch, Shelby, RN RN ss Roszak, Josh, PA PA jrMaite Cooper RN RN rb1 Corrections: (The following items were deleted from the chart) 11:52 11:03 Patient . 8 jr8 13:46 13:27 06/09/2019 13:27 Discharged to Home. Impression: Paresthesia of skin; rb1 Pain in right arm. Condition is Stable. Forms are Medication Reconciliation Form, Thank You Letter, Antibiotic Education, Prescription Opioid Use. Follow up: Jamie Flowers; When: 2 - 3 days; Reason: Recheck today's complaints, Continuance of care, Re-evaluation by your physician. Problem is new. Symptoms have improved. jr8
[2019-06-09 13:57] VITALS: TEMP 97.8
[2019-06-09 13:59] VITALS: BP 104/79; O2SAT 100
--- NOTE | 2019-06-09 14:12 | EKG ---
Test Date: 2019-06-09 Test Time: 11:50:29 Animal Warden: SHIREEN MEASUREMENT RESULTS: Intervals: Rate: 83 LA: 138 QRSD: 68 QT: 346 QTc: 406 Beatty: P: 50 LA: 138 QRS: 75 T: 56 INTERPRETIVE STATEMENTS: Normal sinus rhythm Normal ECG No previous ECG available for comparison Electronically Signed On 06-09-19 14:11:37 LABORER WHARF by Primo Castro
== END 2019-06-09 13:46 | disposition home or self-care (01) ==
LOC: ER 10:07
DX: R20.2 Paresthesia of skin (principal)
CPT/HCPCS: 36415; 70450; 70551; 71045; 72141; 80048; 80076; 82607; 82746; 83735; 83880; 85025; 85610; 93005; 99284

== ENCOUNTER 2021-01-15 06:20 | Emergency (ER) | payer MEDICAID, OTHER ==
--- OUTSIDE RECORDS SUMMARY | 2021-01-15 06:23 | XMS REPORT | Continuity of Care Document ---
:2000 Author Organization [facility] t Address [address] [place] [address] Care Team Providers Name Role Phone Doctor Unassigned, Name Attending Clinician Unavailable Le Encarnacion Attending Clinician Problems This patient has no known problems. Allergies, Adverse Reactions, Alerts This patient has no known allergies or adverse reactions. Medications This patient has no known medications. Procedures This patient has no known procedures. Encounters Start End Encounter Admission Attending Care Care Encounter Source Date/Time Date/Time Type Type Clinicians Facility Department ID 2019-03-15 2019-03-15 Orders Doctor GALVAN [id number] 00:00:00 00:00:00 Only UnassignedARSLAN [id number] [place] [id number] 2019-03-07 2019-03-07 Office SANTO Chandra [id number] 10:21:34 11:25:12 Visit Jacqueline Lujan SUPERVISOR [place] [id number] MATERNAL [id number] & CHILD [address] [place] [address] 2019-03-07 2019-03-07 Orders Doctor GALVAN [id number] 00:00:00 00:00:00 Only UnassignedARSLAN [id number] [place] [id number] Results This patient has no known results.
[2021-01-15 06:53] LABS: Urine Blood 3+ (Negative); Urine Glucose Negative (Negative); Urine Protein 1+ (Negative); Urine Specific Gravity >=1.030 (1.005-1.030)
[2021-01-15 07:07] LABS: Absolute Lymphocytes (CBC) 1.4 K/uL (0.7-4.9); Basophils % 0.3 % (0-1.3); Hematocrit 39.2 % (36.0-45.0); Lymphocytes % 17.1 % (15.3-44.8); MPV 9.8 fL (7.6-11.3); RBC Red Blood Cell Count 4.84 M/uL (3.86-4.86)
[2021-01-15 07:52] LABS: ALT/SGPT 18 U/L (12-78); AST/SGOT 13 U/L (15-37); Albumin 4.2 g/dL (3.4-5.0); Alkaline Phosphatase 90 U/L (45-117); BUN Blood Urea Nitrogen 12 mg/dL (7-18); Bicarbonate 25 mmol/L (21-32); Bilirubin Direct 0.1 mg/dL (0-0.2); Bilirubin Total 0.3 mg/dL (0.2-1.0); Glucose Level 115 mg/dL (74-106); Lipase 95 U/L (73-393); Potassium 3.9 mmol/L (3.5-5.1); Protein, Total 7.6 g/dL (6.4-8.2); Sodium Level 139 mmol/L (136-145)
--- NOTE | 2021-01-15 07:58 | RAD REPORT ---
EXAM DESCRIPTION: US - Abdomen Exam Limited - 01/15/2021 7:38 am CLINICAL HISTORY: Abd pain;Nausea / vomiting COMPARISON: Abdomen Pelvis W Contrast dated 02/16/2019 FINDINGS: No gallstones, sludge or other abnormalities within the gallbladder lumen. There is no wal l thickening or pericholecystic fluid. No common duct stone or biliary tree dilatation identified. IMPRESSION: Normal gallbladder and biliary tree ultrasound.
--- NOTE | 2021-01-15 08:28 | RAD REPORT ---
EXAM DESCRIPTION: CT - Abdomen Pelvis W Contrast - 01/15/2021 8:11 am CLINICAL HISTORY: Abd pain;Nausea / vomiting COMPARISON: Abdomen Pelvis W Contrast dated 02/16/2019 TECHNIQUE: Biphasic, helical CT imaging of the abdomen and pelvis was performed following 100 ml non -ionic IV contrast. No oral contrast administered. All CT scans are performed using dose optimization technique as appropriate and may include automated exposure control or mA/KV adjustment according to patient size. FINDINGS: No suspicious findings in the lung bases. The liver, spleen, and pancreas show no suspicious findings. Gallbladder and biliary tree are also wi thout suspicious finding. Liver attenuation is borderline to mildly fatty infiltrated. Symmetric renal function is seen with no hydronephrosis or suspicious renal mass. No pyelonephritis o r acute parenchymal process. No bladder abnormalities. No adrenal abnormalities. Uterus and ovaries s how no suspicious findings. No dilated bowel loops or bowel wall thickening. Appendix is normal. A few small sub centimeter mesen teric lymph nodes are present, nonspecific. No free air, free fluid or inflammatory stranding. No he rnia, mass or bulky lymphadenopathy. No suspicious bony findings. IMPRESSION: Contrast enhanced CT abdomen and pelvis showing no acute or emergent finding.
[2021-01-15] MEDS ORDERED: LIDOCAINE VISCOUS 2% SOLN 15 ML UDC ONE (08:58)
[2021-01-15] MEDS ORDERED: MAGNES/ALUMIN/SIMET 30ML UCUP ONE (08:58)
--- NOTE | 2021-01-15 09:27 | EDPHYS ---
Physician Documentation [facility] Name: Caroline Valentin Age: 20 yrs Sex: Female : 2000 Arrival Date: 01/15/2021 Time: 06:41 Bed 8 Private MD: ED Physician Dami Westbrook HPI: 01/15 07:55 This 20 yrs old Female presents to ER via Ambulatory with complaints of rn Abdominal Pain. 07:55 The patient presents with abdominal pain in the epigastric area. Onset: The rn symptoms/episode began/occurred last night. The symptoms do not radiate. Associated signs and symptoms: Pertinent positives: nausea and vomiting, Pertinent negatives: anorexia, blood in stools, chest pain, diarrhea, fever. The symptoms are described as achy. Modifying factors: The symptoms are alleviated by nothing, the symptoms are aggravated by touching the area. Severity of pain: At its worst the pain was moderate in the emergency department the pain has improved. The patient has not experienced similar symptoms in the past. The patient has not recently seen a physician. 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 - Social history:: Smoking status: Patient denies any tobacco usage or history of. - Family history:: not pertinent. - Hospitalizations: : No recent hospitalization is reported. ROS: 07:55 Constitutional: Negative for fever, chills, and weight loss, Eyes: Negative for injury, rn pain, redness, and discharge, Neck: Negative for injury, pain, and swelling, Cardiovascular: Negative for chest pain, palpitations, and edema, Respiratory: Negative for shortness of breath, cough, wheezing, and pleuritic chest pain, Abdomen/GI: + abd pain and nausea/vomiting Back: Negative for injury and pain, : Negative for injury, bleeding, discharge, and swelling, MS/Extremity: Negative for injury and deformity, Skin: Negative for injury, rash, and discoloration, Neuro: Negative for headache, weakness, numbness, tingling, and seizure. Exam: 07:55 Constitutional: This is a well developed, well nourished patient who is awake, alert, rn and in no acute distress. Head/Face: Normocephalic, atraumatic. Eyes: Periorbital areas with no swelling, redness, or edema. ENT: MMM Cardiovascular: Regular rate and rhythm. No pulse deficits. Respiratory: No increased work of breathing, no retractions or nasal flaring. Abdomen/GI: soft, mild epigastric and LUQ tenderness, no rebound or masses Skin: Warm, dry MS/ Extremity: Pulses equal, no cyanosis. Neuro: Awake and alert, GCS 15 Vital Signs: 06:41 BP 132 / 92; Pulse 93; Resp 18; Temp 97.4; Pulse Ox 99% on R/A; Weight 68.04 kg; Height em 5 ft. 2 in. (157.48 cm); Pain 8/10; 06:41 Body Mass Index 27.44 (68.04 kg, 157.48 cm) em MDM: 07:00 Patient medically screened. rn 09:24 Differential diagnosis: appendicitis, cholecystitis, Cholelithiasis, gastritis, rn gastroesophageal reflux disease, non-specific abd pain, pancreatitis, Peptic Ulcer Disease. Data reviewed: vital signs, nurses notes, lab test result(s), radiologic studies, CT scan, ultrasound, and as a result, I will discharge patient. Counseling: I had a detailed discussion with the patient and/or guardian regarding: the historical points, exam findings, and any diagnostic results supporting the discharge/admit diagnosis, lab results, radiology results, the need for outpatient follow up, to return to the emergency department if symptoms worsen or persist or if there are any questions or concerns that arise at home. Response to treatment: the patient's symptoms have mildly improved after treatment, and as a result, I will discharge patient. Special discussion: Based on the patient's Hx, exam, and Dx evaluation, there is no indication for emergent surgery or inpatient Tx. It is understood by the patient/guardian that if the Sx's persist or worsen they need to return immediately for re-evaluation. I discussed with the patient/guardian in detail that at this point there is no indication for admission to the hospital. It is understood, however, that if the symptoms persist or worsen the patient needs to return immediately for re-evaluation. ED course: No acute findings on ct abdomen/bloodwork/ultrasound. Will dc home as possible gastritis vs enteritis vs viral syndrome. Return precautions given and understood.. 01/15 06:45 Order name: Basic Metabolic Panel; Complete Time: 08:26 ad5 01/15 06:45 Order name: CBC with Diff; Complete Time: 08:26 ad5 01/15 06:45 Order name: Hepatic Function; Complete Time: 08:26 ad5 01/15 06:45 Order name: Lipase; Complete Time: 08:26 ad5 01/15 06:52 Order name: Urine Dipstick-Ancillary; Complete Time: 07:21 EDMS 01/15 06:53 Order name: Urine --Ancillary (enter results) tt3 01/15 06:45 Order name: IV Saline Lock; Complete Time: 06:56 ad5 01/15 06:45 Order name: Labs collected and sent; Complete Time: 06:56 ad5 01/15 06:45 Order name: Urine Dipstick-Ancillary (obtain specimen); Complete Time: 06:53 ad5 01/15 06:45 Order name: Urine Test (obtain specimen); Complete Time: 06:53 ad5 01/15 07:22 Order name: US Abdomen Limited; Complete Time: 08:26 rn 01/15 07:22 Order name: CT Abd/Pelvis - IV Contrast Only; Complete Time: 08:55 rn Administered Medications: 08:40 Drug: GI Cocktail without - (Maalox Suspension 30 ml, Lidocaine Liquid 2 % 15 aa5 ml) Route: PO; 09:35 Follow up: Response: No adverse reaction aa5 09:35 Drug: Phenergan (promethazine) 12.5 mg Route: IVP; Site: right antecubital; aa5 10:05 Follow up: Response: No adverse reaction; Nausea is decreased aa5 Disposition Summary: 01/15/21 09:27 Discharge Ordered Location: Home rn Problem: new rn Symptoms: have improved rn Condition: Stable rn Diagnosis - Upper abdominal pain, unspecified rn - Vomiting, unspecified rn Followup: rn - With: Mario Rowley MD - When: As needed - Reason: Recheck today's complaints, Re-evaluation by your physician Discharge Instructions: - Discharge Summary Sheet rn - Abdominal Pain, Adult rn - Gastritis, Adult rn - Vomiting, Adult rn Forms: - Medication Reconciliation Form rn - Thank You Letter rn - Antibiotic operating room rn - Prescription Opioid Use rn Prescriptions: - ondansetron 4 mg Oral tablet,disintegrating - take 1 tablet by ORAL route every 8 hours As needed; 20 tablet; Refills: 0, rn Product Selection Permitted - Protonix 40 mg Oral Tablet - take 1 tablet by ORAL route once daily; 30 tablet; Refills: 0, Product rn Selection Permitted Signatures: Dispatcher [employer] Mj Hale, Dami Polk RN, MD MD rn Calderon, Audri, DONTRELL JON aa5 Luiz Bradshaw
--- NOTE | 2021-01-15 09:27 | ER ---
Nurse's Notes [facility] Name: Caroline Valentin Age: 20 yrs Sex: Female : 2000 Arrival Date: 01/15/2021 Time: 06:41 Bed 8 Private MD: Diagnosis: Upper abdominal pain, unspecified;Vomiting, unspecified Presentation: 01/15 06:41 Chief complaint: Patient states: abdominal pain and nausea that started at 0100, denies em diarrhea or fever. Coronavirus screen: Client denies travel out of the [place] in the last 14 days. Ebola Screen: Patient negative for fever greater than or equal to 101.5 degrees Fahrenheit, and additional compatible Ebola Virus Disease symptoms Patient denies exposure to infectious person. Patient denies travel to an Ebola-affected area in the 21 days before illness onset. No symptoms or risks identified at this time. Initial Sepsis Screen: Does the patient meet any 2 criteria? HR > 90 bpm. No. Patient's initial sepsis screen is negative. Does the patient have a suspected source of infection? No. Patient's initial sepsis screen is negative. Risk Assessment: Do you want to hurt yourself or someone else? Patient reports no desire to harm self or others. Onset of symptoms was January 15, 2021. 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 - Social history:: Smoking status: Patient denies any tobacco usage or history of. - Family history:: not pertinent. - Hospitalizations: : No recent hospitalization is reported. Screenin:57 Abuse screen: Denies threats or abuse. Denies injuries from another. Nutritional ad5 screening: No deficits noted. Tuberculosis screening: No symptoms or risk factors identified. Fall Risk None identified. Assessment: 06:56 General: Appears uncomfortable, Behavior is calm, cooperative, appropriate for age. ad5 Pain: Complains of pain in abdomen. Neuro: Level of Consciousness is awake, alert, obeys commands, Oriented to person, place, time, situation, Appropriate for age Area Attendant are equal bilaterally Moves all extremities. Gait is steady, Speech is normal, Intact Reports dizziness. Cardiovascular: Heart tones present Capillary refill < 3 seconds Patient's skin is warm and dry. Respiratory: Airway is patent Respiratory effort is even, unlabored, Respiratory pattern is regular, symmetrical. GI: Abdomen is flat, Bowel sounds present X 4 quads. Abd is soft and non tender Reports nausea, vomiting. : No deficits noted. No signs and/or symptoms were reported regarding the genitourinary system. Derm: No deficits noted. No signs and/or symptoms reported regarding the dermatologic system. Skin is pink, warm \T\ dry. 08:20 Reassessment: Patient is alert, oriented x 3, equal unlabored respirations, skin aa5 warm/dry/pink. States no complaints at this time. Pt back from CT scan. Awaiting results. Pt notified of wait time. General: Appears comfortable. 08:40 Reassessment: Patient is alert, oriented x 3, equal unlabored respirations, skin aa5 warm/dry/pink. 10:05 Reassessment: Patient is alert, oriented x 3, equal unlabored respirations, skin aa5 warm/dry/pink. Patient states feeling better. Patient states symptoms have improved. Pt reports she is able to tolerate fluids at this time, denies nausea. . Vital Signs: 06:41 BP 132 / 92; Pulse 93; Resp 18; Temp 97.4; Pulse Ox 99% on R/A; Weight 68.04 kg; Height em 5 ft. 2 in. (157.48 cm); Pain 8/10; 06:41 Body Mass Index 27.44 (68.04 kg, 157.48 cm) em ED Course: 06:41 Patient arrived in ED. em 06:42 Triage completed. em 06:42 Arm band placed on. em 06:53 Urine collected: clean catch specimen, clear. em 06:58 No provider procedures requiring assistance completed. Inserted saline lock: 20 gauge ad5 in right antecubital area, using aseptic technique. Blood collected. 07:00 Dami Westbrook MD is Attending Physician. rn 07:37 US Abdomen Limited In Process Unspecified. EDMS 08:11 CT Abd/Pelvis - IV Contrast Only In Process Unspecified. EDMS 08:33 Yocasta Lowry, DONTRELL is Primary Nurse. aa5 09:26 Mario Rowley MD is Referral Physician. rn 10:37 IV discontinued, intact, bleeding controlled, No redness/swelling at site. Pressure ss dressing applied. Administered Medications: 08:40 Drug: GI Cocktail without - (Maalox Suspension 30 ml, Lidocaine Liquid 2 % 15 aa5 ml) Route: PO; 09:35 Follow up: Response: No adverse reaction aa5 09:35 Drug: Phenergan (promethazine) 12.5 mg Route: IVP; Site: right antecubital; aa5 10:05 Follow up: Response: No adverse reaction; Nausea is decreased aa5 Outcome: 09:27 Discharge ordered by MD. rn 10:37 Discharged to home ambulatory, with family. ss 10:37 Condition: good 10:37 Discharge instructions given to patient, family, Instructed on discharge instructions, follow up and referral plans. medication usage, Demonstrated understanding of instructions, follow-up care, medications, Prescriptions given X 2. 10:37 Patient left the ED. ss Signatures: Dispatcher [employer] Mj Hale RN Dami Polk MD MD rn Calderon, Audri, RN RN aa5 Smirch, Shelby, RN RN ss Davidson, Andrea ad5
[2021-01-15] MEDS ORDERED: PROMETHAZINE INJ 25 MG/ML AMP ONE (09:47)
[2021-01-15 10:50] VITALS: BP 132/92; TEMP 97.4; O2SAT 99
[2021-01-15 14:52] LABS: Urine Specific Gravity/Preg >1.030 (1.005-1.030)
== END 2021-01-15 10:37 | disposition home or self-care (01) ==
LOC: ER 06:20
DX: R11.10 Vomiting, unspecified (principal)
CPT/HCPCS: 85025; 80048; 36415; 81025; 80076; 81003; 83690; 74177; 76705; Q9967; J2550; 96374; 99284

== ENCOUNTER 2022-10-07 18:33 | Emergency (ER) | payer SELFPAY ==
--- OUTSIDE RECORDS SUMMARY | 2022-10-07 18:40 | XMS REPORT | Continuity of Care Document ---
:2000 Author Organization [facility] t Address [address] [place] [address] Care Team Providers Name Role Phone MERYL HUTCHINSON Primary Care Physician Unavailable Meryl Begum Attending Clinician [phone] MERYL HUTCHINSON Attending Clinician Unavailable Doctor Unassigned, [place] Attending Clinician Unavailable Jacqueline Encarnacion Attending Clinician Payers Payer Name Policy Type Policy Number Effective Date Expiration Date S ource Problems Condition Condition Condition Status Onset Resolution Last Treating Co mments Source Name Details Category Date Date Treatment Clinician Date Other Other Disease Active Univers general general 8-24 ity of counseling [place] and advice and advice 00 Dc dical for for Branch contracept contracept nicole nicole management management Obesity Obesity Disease Active Univers (BMI (BMI 8-24 ity of 30-39.9) 30-39.9) 00:00: [place] [address] Medical Branch Nexplanon Nexplanon Disease Active Uni vers removal removal 8-19 ity of 00:00: [place] [address] [facility] Dysuria Dysuria Disease Active 2018- Univers 8-19 ity of 00:00: [place] 00 [facility] Well woman Well woman Disease Active U nivers exam exam 8 ity of 00:00: [place] 00 [facility] Allergies, Adverse Reactions, Alerts Allergy Allergy Status Severity Reaction(s) Onset Inactive Treating Comm ents Source Name Type Date Date Clinician NO KNOWN Drug Active Univers ALLERGIE Class ity of S [facility] Social History Social Habit Start Date Stop Date Quantity Comments Source Exposure to 2022-03-07 2022-03-17 Not sure [facility] SARS-CoV-2 00:00:00 14:54:00 [facility] (event) [place] Alcohol intake 2022-03-17 2022-03-17 Current [facility] 00:00:00 00:00:00 non-drinker of [facility] alcohol (finding) [place] Tobacco use and 2022-03-12 2022-03-12 Smokeless tobacco Un iversity of exposure 00:00:00 00:00:00 non-user [facility] Sex Assigned At [birth year] Universit y of 00:00:00 00:00:00 [facility] Smoking Status Start Date Stop Date Source Never smoked tobacco [facility] Medications Ordered Filled Start Stop Current Ordering Indication Dosage Frequency Signature Comments Components Source Medication Medication Date Date Medication? Clinician (SIG) Name Name Yes [id number] 1{tbl} Take 1 Univers vitamin 01-25 102 tablet by ity of w/FA tablet 00:00: mouth [place] 00 daily. Medical Branch docusate Yes [id number] 240mg Take 1 Univers calcium 240 01-25 102 capsule by it y of mg capsule 00:00: mouth once [place] 00 daily as Medical needed for Branch Constipati on. ferrous Yes [id number] 325mg Take 1 Univers sulfate 325 01-25 102 tablet by ity of mg (65 mg 00:00: mouth 2 [place] iron) 00 (two) Medical tablet times Branch daily. ibuprofen 2018- Yes [id number] 600mg Take 1 Univers 600 mg - 102 tablet by ity of tablet 00:00: mouth [place] 00 every 6 Medical (six) Branch hours as needed for Pain (scale 1-3) or Pain (scale 4-6) (Pain). Take with food or milk. 2019-0 Yes [id number] 1{tbl} Take 1 Univers vitamin 7-09 102 tablet by ity of w/FA tablet 00:00: mouth [place] 00 daily. Medical Branch docusate 2019-0 Yes [id number] 240mg Take 1 Univers calcium 240 7-09 102 capsule by it y of mg capsule 00:00: mouth once [place] 00 daily as Medical needed for Branch Constipati on. ferrous 2018- Yes [id number] 325mg Take 1 Univers sulfate 325 7-09 102 tablet by ity of mg (65 mg 00:00: mouth 2 [place] iron) 00 (two) Medical tablet times Branch daily. ibuprofen 2018- Yes [id number] 600mg Take 1 Univers 600 mg 7-09 102 tablet by ity of tablet 00:00: mouth [place] 00 every 6 Medical (six) Branch hours as needed for Pain (scale 1-3) or Pain (scale 4-6) (Pain). Take with food or milk. 2018-0 Yes [id number] 1{tbl} Take 1 Univers vitamin 7-09 102 tablet by ity of w/FA tablet 00:00: mouth [place] 00 daily. Medical Branch docusate Yes [id number] 240mg Take 1 Univers calcium 240 7-09 102 capsule by it y of mg capsule 00:00: mouth once [place] 00 daily as Medical needed for Branch Constipati on. ferrous 2018-0 Yes [id number] 325mg Take 1 Univers sulfate 325 7-09 102 tablet by ity of mg (65 mg 00:00: mouth 2 [place] iron) 00 (two) Medical tablet times Branch daily. ibuprofen 2019- Yes [id number] 600mg Take 1 Univers 600 mg 7-09 102 tablet by ity of tablet 00:00: mouth [place] 00 every 6 Medical (six) Branch hours as needed for Pain (scale 1-3) or Pain (scale 4-6) (Pain). Take with food or milk. ferrous 2019- Yes [id number] 325mg Take 1 Un bab[place]unde sulfate 325 7-08 tablet by ity of mg (65 mg 00:00: mouth 2 [place] iron) 00 (two) Medical tablet times Branch daily. ascorbic 2019- Yes [id number] 500mg Take 1 U nivers acid, 7-08 tablet by ity of vitamin C, 00:00: mouth [place] 500 mg 00 (three) Medical tablet times Branch daily. ferrous 2019- Yes [id number] 325mg Take 1 Un [place] sulfate 325 7-08 tablet by ity of mg (65 mg 00:00: mouth 2 [place] iron) 00 (two) Medical tablet times Branch daily. ascorbic 2019- Yes [id number] 500mg Take 1 U nivers acid, 7-08 tablet by ity of vitamin C, 00:00: mouth [place] 500 mg 00 (three) Medical tablet times Branch daily. ferrous 2019- Yes [id number] 325mg Take 1 Un [place] sulfate 325 7-08 tablet by ity of mg (65 mg 00:00: mouth 2 [place] iron) 00 (two) Medical tablet times Branch daily. ascorbic 2018- Yes [id number] 500mg Take 1 U nivers acid, 7-08 tablet by ity of vitamin C, 00:00: mouth [place] 500 mg 00 (three) Medical tablet times Branch daily. 2018- Yes [id number] 1{packe Take 1 Univers vit 2-18 t} Packet by ity of 33-iron-fol 00:00: mouth [place] ic-dha 00 daily. Medical (SELECT-OB Branch + DHA) 29 mg iron-1 mg -250 mg combo pack 2018- Yes [id number] 1{packe Take 1 Univers vit 2-18 t} Packet by ity of 33-iron-fol 00:00: mouth [place] ic-dha 00 daily. Medical (SELECT-OB Branch + DHA) 29 mg iron-1 mg -250 mg combo pack Yes [id number] 1{packe Take 1 Univers vit 2-18 t} Packet by ity of 33-iron-fol 00:00: mouth [place] ic-dha 00 daily. Medical (SELECT-OB Branch + DHA) 29 mg iron-1 mg -250 mg combo pack Immunizations Ordered Filled Immunization Date Status Comments [facility] e Immunization Name Name MMR 2019-01-25 Completed [facility] 00:00:00 [facility] MMR 2019-01-25 Completed [facility] 00:00:00 [facility] MMR 2019-01-25 Completed [facility] 00:00:00 [facility] TDAP (ADACEL) 2018-11-30 Completed [facility] 00:00:00 [facility] TDAP (ADACEL) 2018-11-30 Completed University of VACCINE 00:00:00 [facility] TDAP (ADACEL) 2018-11-30 Completed University of VACCINE 00:00:00 [facility] Vital Signs Vital Name Observation Time Observation Value Comments Source Systolic blood 2022-03-17 19:54:00 125 mm[Hg] Univer sity of pressure [facility] Diastolic blood 2022-03-17 19:54:00 91 mm[Hg] Unive rsity of pressure [facility] Heart rate 2022-03-17 19:54:00 87 /min [facility] Body temperature 2022-03-17 19:54:00 36.06 Sona [facility] [place] [facility] Respiratory rate 2022-03-17 19:54:00 18 /min [facility] [place] [facility] Body height 2022-03-17 19:54:00 157.5 cm [facility] Body weight 2022-03-17 19:54:00 73.511 kg [facility] BMI 2022-03-17 19:54:00 29.64 kg/m2 [facility] Procedures Procedure Date / Time Performed Performing Clinician Sourc e DISCLOSURE AND 2022-03-17 05:01:00 Doctor Unassigned, No Univer [facility] CONSENT, MEDICAL AND Name Medical [facility] SURGICAL PROCEDURES Encounters Start End Encounter Admission Attending Care Care Encounter Source Date/Time Date/Time Type Type Clinicians Facility Department ID 2022-03-17 2022-03-17 Office Ronda [facility] [id number] [facility] 14:30:00 15:00:00 Visit Meryl Mclain [employer]APPING [employer]ACHINE TENDER 350.1.13.10 ity [facility] [id number] Js as MATERNAL [id number] Med ical & CHILD [address] [place] [address] 2022-03-17 2022-03-17 Outpatient R RONDA [facility] [id number] [facility] 14:30:00 14:30:00 MERYL villarreal [facility] 2022-03-17 2022-03-17 Outpatient R RONDA [facility] [id number] [facility] 14:30:00 14:30:00 MERYL villarreal [facility] 2022-03-17 2022-03-17 Orders Doctor GALVAN [id number] Univers 00:00:00 00:00:00 Only Unassigned, ARSLAN 350.1.13.10 ity of [place] [facility] 4.2.7.2.686 Js as [id number] [address] 2022-03-12 2022-03-12 [facility] [id number] Univers 10:15:00 12:03:26 MERYL villarreal [facility] 2022-03-12 2022-03-12 Office [facility] [id number] [facility] 10:15:00 12:03:26 Visit Meryl Mclain LAPPING MACHINE TENDER 350.1.13.10 ity [facility] 4.2.7.2.686 Js as MATERNAL [id number] [facility] ical & CHILD [address] [place] [address] 2022-03-12 2022-03-12 Outpatient R MONY, [facility] [id number] [facility] 10:15:00 12:03:26 MERYL villarreal [facility] 2022-02-28 2022-02-28 [facility] [id number] Univers 09:00:00 09:00:00 MERYL villarreal [facility] 2019-03-15 2019-03-15 Orders Doctor GALVAN [id number] Univers 00:00:00 00:00:00 Only Unassigned, ARSLAN 350.1.13.10 ity of [place] [facility] 4.2.7.2.686 Js as [id number] [address] 2019-03-15 2019-03-15 Orders Doctor GALVAN [id number] 00:00:00 00:00:00 Only Unassigned, ARSLAN 350.1.13.10 [place] [facility] 4.2.7.2.686 [id number] 2019-03-07 2019-03-07 [facility] [id number] Univers 10:21:34 11:25:12 Visit Roshunda R [employer]APPING MACHINE TENDER 350.1.13.10 ity of REGIONAL 4.2.7.2.686 Js as MATERNAL [id number] [facility] ical & CHILD [address] [place] [address] 2019-03-07 2019-03-07 Office ChandraSANTO [id number] 10:21:34 11:25:12 Visit Roshunda R [employer]APP[employer] MACHINE TENDER 350.1.13.10 REGIONAL 4.2.7.2.686 MATERNAL [id number] & CHILD [address] [place] [address] 2019-03-07 2019-03-07 Orders Doctor COLE [id number] Univers 00:00:00 00:00:00 Only Unassigned, ARSLAN 350.1.13.10 ity of [place] [facility] 4.2.7.2.686 Js as [id number] [address] 2019-03-07 2019-03-07 Orders Doctor COLE [id number] 00:00:00 00:00:00 Only Unassigned, ARSLAN 350.1.13.10 [place] [facility] 4.2.7.2.686 [id number] 2019-02-14 2019-02-22 Routine Prateek ORSHE [id number] Univers 10:21:07 14:31:12 Roshunda R LAPPING MACHINE TENDER 350.1.13.10 ity of Visit REGIONAL 4.2.7.2.686 Js as MATERNAL [id number] [facility] ical & CHILD [address] [place] [address] 2019-02-15 2019-02-15 Patient Prateek ORSHE [id number] Univers 00:00:00 00:00:00 Secure Msg Roshunda R LAPPING MACHINE TENDER 350.1.13.10 ity of REGIONAL 4.2.7.2.686 Js as MATERNAL [id number] [facility] [address] [place] [address] 2019-02-15 2019-02-15 Patient Prateek ORSHE [id number] Univers 00:00:00 00:00:00 Secure Msg Roshunda R LAPPING MACHINE TENDER 350.1.13.10 ity [facility] 4.2.7.2.686 Js as MATERNAL [id number] Med ical & CHILD [address] [place] [address] Results This patient has no known results.
--- NOTE | 2022-10-07 20:08 | RAD REPORT ---
EXAM DESCRIPTION: US - Abdomen Exam Limited - 10/07/2022 8:00 pm CLINICAL HISTORY: ABD PAIN COMPARISON: <Comparisons> FINDINGS: The gallbladder demonstrates no gallstones. No pericholecystic fluid or gallbladder wall t hickening. The common bile duct is normal measuring 3mm. The liver demonstrates no findings of intrahepatic biliary dilatation. IMPRESSION: Unremarkable examination.
[2022-10-07 20:26] LABS: Hematocrit 38.3 % (36.0-45.0); Lymphocytes % 38.2 % (15.3-44.8); MCV 81.2 fL (80-100); MPV 9.3 fL (7.6-11.3); RBC Red Blood Cell Count 4.72 M/uL (3.86-4.86)
[2022-10-07 20:29] LABS: Specific Gravity > 1.030 (1.005-1.030); Urine Bilirubin NEGATIVE (Negative); Urine Blood Negative (Negative); Urine Clarity Clear (Clear); Urine Color Light-Yellow (Yellow); Urine Glucose NEGATIVE (Negative); Urine Protein TRACE (Negative); Urine Urobilinogen 1+ (Normal)
[2022-10-07 20:52] LABS: Bilirubin Total 0.2 mg/dL (0.2-1.0); Potassium 4.1 mEq/L (3.5-5.1)
[2022-10-07 20:53] LABS: Albumin 4.3 g/dL (3.4-5.0); Protein, Total 7.4 g/dL (6.4-8.2)
--- NOTE | 2022-10-07 21:05 | RAD REPORT ---
EXAM DESCRIPTION: CTAbdomen Pelvis W Contrast - 10/07/2022 8:53 pm CLINICAL HISTORY: Abdominal pain. abdominal pain COMPARISON: Abdomen Pelvis W Contrast dated 01/15/2021; Abdomen Pelvis W Contrast dated 02/16/2019 TECHNIQUE: Biphasic CT imaging of the abdomen and pelvis was performed with 100 ml non-ionic IV cont rast. All CT scans are performed using dose optimization technique as appropriate and may include automated exposure control or mA/KV adjustment according to patient size. FINDINGS: The lung bases are clear. The liver, spleen, pancreas, adrenal glands and kidneys are within normal limits. No bowel obstruction, free air, free fluid or abscess. The appendix is normal. No evidence of signi ficant lymphadenopathy. No suspicious bony findings. IMPRESSION: No acute intra-abdominal or pelvic finding.
--- NOTE | 2022-10-07 21:38 | ER ---
Nurse's Notes [facility] Name: Caroline Valentin Age: 22 yrs Sex: Female : 2000 Arrival Date: 10/07/2022 Time: 18:36 Bed 25 Private MD: Diagnosis: Epigastric pain Presentation: 10/07 19:26 Chief complaint: Patient states: C/o epigastric pain X 3 days, fatigue, and SOB, states ll3 eating makes the pain worse, states pain is 7/10. Coronavirus screen: Vaccine status: Patient reports being unvaccinated. fatigue, muscle pain. Ebola Screen: No symptoms or risks identified at this time. Initial Sepsis Screen: Does the patient meet any 2 criteria? No. Patient's initial sepsis screen is negative. Does the patient have a suspected source of infection? No. Patient's initial sepsis screen is negative. Risk Assessment: Do you want to hurt yourself or someone else? Patient reports no desire to harm self or others. Onset of symptoms was October 04, 2022. Care prior to arrival: Medication(s) given: Motrin, at 6:15 PM. 19:26 Method Of Arrival: Ambulatory ll3 19:26 Acuity: SHAWANDA 3 ll3 Triage Assessment: 19:28 General: Appears uncomfortable, Behavior is calm, cooperative. Pain: Complains of pain ll3 in epigastric area Pain does not radiate. Pain currently is 7 out of 10 on a pain scale. Quality of pain is described as stabbing, Pain began 2-3 days ago. Is continuous, Aggravated by eating. GI: Abdomen is round non-distended, Reports upper abdominal pain, intolerance of food. Derm: Skin is pink, warm \T\ dry. 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 - Social history:: Smoking status: Patient denies any tobacco usage or history of. Screenin:00 [facility] ED Fall Risk Assessment (Adult) History of falling in the last 3 months, pf1 including since admission No falls in past 3 months (0 pts) Confusion or Disorientation No (0 pts) Intoxicated or Sedated No (0 pts) Impaired Gait No (0 pts) Mobility Assist Device Used No (0 pt) Altered Elimination No (0 pt) Score/Fall Risk Level 0 - 2 = Low Risk Oriented to surroundings, Maintained a safe environment, Educated pt \T\ family on fall prevention, incl call for assistance when getting out of bed, Assessed \T\ reinforced patient's understanding of fall precautions, Provided non-skid footwear, Hourly rounding (assess needs \T\ fall precautionary measures) done, Used ambulatory aids as needed (educated on \T\ assisted with), Used gait belt as appropriate. 21:00 Abuse screen: Denies threats or abuse. Nutritional screening: No deficits noted. pf1 Tuberculosis screening: No symptoms or risk factors identified. Assessment: 20:55 General: Appears in no apparent distress. comfortable, well groomed, well developed, pf1 Behavior is calm, cooperative, appropriate for age, quiet. 20:55 Pain: Complains of pain in epigastric area Pain currently is 7 out of 10 on a pain pf1 scale. Pain began 3 days. Neuro: No deficits noted. Level of Consciousness is awake, alert, obeys commands, Oriented to person, place, time, situation. Cardiovascular: No deficits noted. Capillary refill < 3 seconds Patient's skin is warm and dry. Respiratory: No deficits noted. Airway is patent Trachea midline Respiratory effort is even, unlabored, Respiratory pattern is regular, symmetrical, Breath sounds are clear bilaterally. GI: Abdomen is flat, non-distended, Bowel sounds present X 4 quads. Abd is soft and non tender X 4 quads. Reports epigastric pain. : No deficits noted. No signs and/or symptoms were reported regarding the genitourinary system. EENT: No deficits noted. No signs and/or symptoms were reported regarding the EENT system. Derm: No deficits noted. No signs and/or symptoms reported regarding the dermatologic system. 21:55 Reassessment: Patient appears in no apparent distress at this time. Patient and/or pf1 family updated on plan of care and expected duration. Pain level reassessed. Patient is alert, oriented x 3, equal unlabored respirations, skin warm/dry/pink. Patient states symptoms have improved. Vital Signs: 19:26 BP 127 / 86; Pulse 68; Resp 17; Temp 98.4; Pulse Ox 100% ; Weight 58.97 kg (R); Height ll3 5 ft. 2 in. (R); Pain 7/10; 21:00 BP 118 / 94; Pulse 72; Resp 16; Pulse Ox 100% ; Pain 7/10; pf1 21:45 BP 105 / 80; Pulse 64; Resp 16; Temp 98(O); Pulse Ox 100% on R/A; Pain 5/10; pf1 19:26 Body Mass Index 23.78 (58.97 kg, 157.48 cm) ll3 19:26 Pain Scale: Adult ll3 21:00 Pain Scale: Adult pf1 21:45 Pain Scale: Adult pf1 ED Course: 18:36 Patient arrived in ED. rg4 18:36 Tomasa Murguia FNP-C is PHCP. snw 18:36 Dami Westbrook MD is Attending Physician. snw 19:28 Triage completed. ll3 19:28 Arm band placed on Patient placed in waiting room, Patient notified of wait time. ll3 20:02 US Abdomen Limited In Process Unspecified. EDMS 20:05 PHCP role handed off by Tomasa Murguia FNP-C snw 20:05 Edgard Lopez PA is PHCP. snw 20:15 CBC with Diff Sent. as7 20:15 CMP Sent. as7 20:15 Lipase Sent. as7 20:15 Test, Urine Sent. as7 20:15 Urinalysis w/ reflexes Sent. as7 20:15 Inserted saline lock: 20 gauge in right antecubital area, using aseptic technique. as7 Blood collected. 20:55 CT Abd/Pelvis - IV Contrast Only In Process Unspecified. EDMS 21:00 Patient has correct armband on for positive identification. Bed in low position. Call pf1 light in reach. 21:37 Mario Rowley MD is Referral Physician. jmm 21:51 Rosibel jones, DONTRELL is Primary Nurse. pf1 21:59 No provider procedures requiring assistance completed. IV discontinued, intact, pf1 bleeding controlled, No redness/swelling at site. Pressure dressing applied. Administered Medications: 21:55 Drug: GI Cocktail without - (Maalox PO Suspension 30 ml, Lidocaine Mucous pf1 Membrane Liquid 2 % 15 ml) Route: PO; 21:59 Follow up: Response: No adverse reaction; Marked relief of symptoms; Pain is decreased pf1 Medication: 22:05 VIS not applicable for this client. pf1 Outcome: 21:37 Discharge ordered by . kee 22:04 Discharged to home ambulatory, with family. pf1 22:04 Condition: stable 22:04 Discharge instructions given to patient, Instructed on discharge instructions, follow up and referral plans. Demonstrated understanding of instructions, follow-up care, medications, Prescriptions given X 3. 22:05 Patient left the ED. pf1 Signatures: Dispatcher [employer] EDMS Tomasa Murguia, MORTGAGE ANALYST-C MORTGAGE ANALYST-Csnw Edgard Lopez PA PA jmm Garcia, Rubi rg4 Desiree Flores RN RN 3 Rosibel jones RN RN pf1 Padmini Watkins as7
--- NOTE | 2022-10-07 21:38 | EDPHYS ---
Physician Documentation [facility] Name: Caroline Valentin Age: 22 yrs Sex: Female : 2000 Arrival Date: 10/07/2022 Time: 18:36 Bed 25 Private MD: ED Physician Dami Westbrook HPI: 10/07 19:43 This 22 yrs old Female presents to ER via Ambulatory with complaints of snw Abdominal Pain. 19:43 The patient presents with abdominal pain. Onset: The symptoms/episode began/occurred snw acutely, 3 day(s) ago, and became persistent. The symptoms do not radiate. Associated signs and symptoms: Pertinent positives: nausea, worse with eating. The symptoms are described as crampy, shooting, stabbing. Severity of pain: At its worst the pain was moderate in the emergency department the pain is unchanged. The patient has not experienced similar symptoms in the past. The patient has not recently seen a physician. no hx of ovarian cysts, no history of abd surgery, LMP the first week of this month. 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 - Social history:: Smoking status: Patient denies any tobacco usage or history of. ROS: 19:43 Constitutional: Negative for fever, chills, and weight loss, Eyes: Negative for injury, snw pain, redness, and discharge, ENT: Negative for injury, pain, and discharge, Neck: Negative for injury, pain, and swelling, Cardiovascular: Negative for chest pain, palpitations, and edema, Respiratory: Negative for shortness of breath, cough, wheezing, and pleuritic chest pain, Back: Negative for injury and pain, : Negative for injury, bleeding, discharge, and swelling, MS/Extremity: Negative for injury and deformity, Skin: Negative for injury, rash, and discoloration, Neuro: Negative for headache, weakness, numbness, tingling, and seizure, Psych: Negative for depression, anxiety, suicide ideation, homicidal ideation, and hallucinations. 19:43 Abdomen/GI: Positive for abdominal pain, nausea, abdominal cramps, bloating. Exam: 19:42 Constitutional: This is a well developed, well nourished patient who is awake, alert, snw and in no acute distress. Head/Face: Normocephalic, atraumatic. Eyes: Pupils equal round and reactive to light, extra-ocular motions intact. Lids and lashes normal. Conjunctiva and sclera are non-icteric and not injected. Cornea within normal limits. Periorbital areas with no swelling, redness, or edema. ENT: Nares patent. No nasal discharge, no septal abnormalities noted. Tympanic membranes are normal and external auditory canals are clear. Oropharynx with no redness, swelling, or masses, exudates, or evidence of obstruction, uvula midline. Mucous membranes moist. Neck: Trachea midline, no thyromegaly or masses palpated, and no cervical lymphadenopathy. Supple, full range of motion without nuchal rigidity, or vertebral point tenderness. No Meningismus. Chest/axilla: Normal chest wall appearance and motion. Nontender with no deformity. No lesions are appreciated. Cardiovascular: Regular rate and rhythm with a normal S1 and S2. No gallops, murmurs, or rubs. Normal PMI, no JVD. No pulse deficits. Respiratory: Lungs have equal breath sounds bilaterally, clear to auscultation and percussion. No rales, rhonchi or wheezes noted. No increased work of breathing, no retractions or nasal flaring. Back: No spinal tenderness. No costovertebral tenderness. Full range of motion. Skin: Warm, dry with normal turgor. Normal color with no rashes, no lesions, and no evidence of cellulitis. MS/ Extremity: Pulses equal, no cyanosis. Neurovascular intact. Full, normal range of motion. Neuro: Awake and alert, GCS 15, oriented to person, place, time, and situation. Cranial nerves II-XII grossly intact. Motor strength 5/5 in all extremities. Sensory grossly intact. Cerebellar exam normal. Normal gait. Psych: Awake, alert, with orientation to person, place and time. Behavior, mood, and affect are within normal limits. 19:42 Abdomen/GI: Inspection: abdomen appears normal, Bowel sounds: normal, Palpation: moderate abdominal tenderness, in the epigastric area and right upper quadrant. 19:45 Abdomen/GI: Indicators: Aguayo's sign is positive. snw Vital Signs: 19:26 BP 127 / 86; Pulse 68; Resp 17; Temp 98.4; Pulse Ox 100% ; Weight 58.97 kg (R); Height ll3 5 ft. 2 in. (R); Pain 7/10; 21:00 BP 118 / 94; Pulse 72; Resp 16; Pulse Ox 100% ; Pain 7/10; pf1 21:45 BP 105 / 80; Pulse 64; Resp 16; Temp 98(O); Pulse Ox 100% on R/A; Pain 5/10; pf1 19:26 Body Mass Index 23.78 (58.97 kg, 157.48 cm) ll3 19:26 Pain Scale: Adult ll3 21:00 Pain Scale: Adult pf1 21:45 Pain Scale: Adult pf1 MDM: 19:35 Patient medically screened. snw 19:54 Differential diagnosis: cholecystitis, Cholelithiasis, Endometriosis, gastritis, snw non-specific abd pain, pancreatitis. Data reviewed: vital signs, nurses notes. Transition of care: After a detail discussion of the patient's case, care is transferred to Edgard ROSADO. 21:36 I considered the following discharge prescriptions or medication management in the [facility] emergency department Medications were administered in the Emergency Department. See MAR. Counseling: I had a detailed discussion with the patient and/or guardian regarding: the historical points, exam findings, and any diagnostic results supporting the discharge/admit diagnosis, lab results, radiology results, the need for outpatient follow up, to return to the emergency department if symptoms worsen or persist or if there are any questions or concerns that arise at home. 10/07 18:37 Order name: Test, Urine; Complete Time: 20:34 snw 10/07 18:37 Order name: Urinalysis w/ reflexes; Complete Time: 20:34 snw 10/07 19:33 Order name: CBC with Diff; Complete Time: 20:34 snw 10/07 19:33 Order name: CMP; Complete Time: 21:05 snw 10/07 19:33 Order name: Lipase; Complete Time: 21:05 snw 10/07 19:33 Order name: US Abdomen Limited; Complete Time: 20:12 snw 10/07 20:22 Order name: CT Abd/Pelvis - IV Contrast Only; Complete Time: 21:08 jmm 10/07 19:33 Order name: IV Saline Lock; Complete Time: 20:15 snw 10/07 19:33 Order name: Labs collected and sent; Complete Time: 20:15 snw Administered Medications: 21:55 Drug: GI Cocktail without - (Maalox PO Suspension 30 ml, Lidocaine Mucous pf1 Membrane Liquid 2 % 15 ml) Route: PO; 21:59 Follow up: Response: No adverse reaction; Marked relief of symptoms; Pain is decreased pf1 Disposition Summary: 10/07/22 21:37 Discharge Ordered Location: Home [facility] Condition: Stable [facility] Diagnosis - Epigastric pain [facility] Followup: [facility] - With: Mario Rowley MD - When: 2 - 3 days - Reason: Recheck today's complaints, Continuance of care, Re-evaluation by your physician Discharge Instructions: - Discharge Summary Sheet [facility] - Abdominal Pain, Adult [facility] Forms: - Medication Reconciliation Form [facility] - Thank You Letter [facility] - Antibiotic Education [facility] - Prescription Opioid Use [facility] Prescriptions: - Carafate 1 gram Oral Tablet - take 1 tablet by ORAL route 4 times per day take on an empty stomach, beginning jmm on waking and last dose at bedtime; 100 tablet; Refills: 0, Product Selection Permitted - Pepcid 20 mg Oral Tablet - take 1 tablet by ORAL route every 12 hours for 10 days; 20 tablet; Refills: 0, [facility] Product Selection Permitted - dicyclomine 20 mg Oral Tablet - take 1 tablet by ORAL route 4 times per day; 30 tablet; Refills: 0, Product [facility] Selection Permitted Signatures: Dispatcher [employer] Tomasa Alberto, EMS EDUCATOR-C EMS EDUCATOR-Csnw Edgard Lopez PA PA Desiree Beach, RN RN ll3 Rosibel jones RN RN pf1
[2022-10-07] MEDS ORDERED: LIDOCAINE VISCOUS 2% SOLN 15 ML UDC ONE (21:57)
[2022-10-07] MEDS ORDERED: MAGNES/ALUMIN/SIMET 30ML UCUP ONE (21:57)
[2022-10-07 22:15] VITALS: O2SAT 100
[2022-10-07 22:18] VITALS: BP 105/80; TEMP 98
== END 2022-10-07 22:05 | disposition home or self-care (01) ==
LOC: ER 18:33
DX: R10.13 Epigastric pain (principal); R11.0 Nausea
CPT/HCPCS: 36415; 74177; 76705; 80053; 81003; 81025; 83690; 85025; Q9967

== ENCOUNTER → 2023-10-08 | Emergency (ER) | payer SELFPAY ==
[~2023-10-08] MED LIST: AMOX/K CLAV 875 MG TAB ONE; CEFTRIAXONE 1000 MG/VIAL ONE; FENTANYL CITR 100 MCG/2 ML ONE; KETOROLAC 30 MG/ML INJ ONE; LIDOCAINE VISCOUS 2% 10ML ORAL SOLN ONE; NA CHLORIDE 0.9% 1,000 ML ONE; ONDANSETRON 4 MG/2 ML VIAL ONE; dexAMETHasone 10 MG/ML VIAL ONE
--- OUTSIDE RECORDS SUMMARY | 2023-10-08 17:07 | XMS REPORT | Continuity of Care Document ---
Author Name Unknown Address [address] [facility] [place] [address] [facility] thconnect Address [address] [facility] [address] [place] [address] Care Team Providers Care Gardening Supervisor Name Role Phone ARAM HUTCHINSON Primary Care Physician Unav Aram Raza Attending Clinician + ARAM HUTCHINSON Attending Clinician Unavail able Doctor Unassigned, Brimson Attending Clinician Jacqueline Isidro Attending Clinician Payers Payer Name Policy Type Policy Number Effective Date Expirati on Date Source Problems Condition Name Condition Details Condition Category Status Onset Date Resolution Date Last Treatment Date Treating Clinician Comments Source Other general counseling and advice for contracept nicole management Other general counseling and advice for contracept nicole management Disease Active 03-12 00:00: 00 [facility] Obesity (BMI 30-39.9) Obesity (BMI 30-39.9) Disease Active 03-12 00:00: 00 [facility] Nexplanon removal Nexplanon removal Disease Active 03-07 00:00: 00 [facility] Dysuria Dysuria Disease Active 03-07 00:00: 00 [facility] Well woman exam Well woman exam Disease Active 03-07 00:00: 00 [facility] Allergies, Adverse Reactions, Alerts Allergy Name Allergy Type Status Severity Reaction(s) Onset Date Inactive Date Treating Clinician Comments Source NO KNOWN ALLERGIE S Drug Class Active [facility] Social History Social Habit Start Date Stop Date Quantity Comments Source Exposure to SARS-CoV-2 (event) 2022-03-07 00:00:00 2022-03-17 14:54:00 Not sure [facility] Alcohol intake 2022-03-17 00:00:00 2022-03-17 00:00:00 Current non-drinker of alcohol (finding) [facility] Tobacco use and exposure 2022-03-12 00:00:00 2022-03-12 00:00:00 Smokeless tobacco non-user [facility] Sex Assigned At 2000 00:00:00 2000 00:00:00 [facility] Smoking Status Start Date Stop Date Source Never smoked tobacco [facility] Medications Ordered Medication Name Filled Medication Name Start Date Stop Date Current Medication? Ordering Clinician Indication Dosage Frequency Signature (SIG) Comments Components Source vitamin w/FA tablet 01-25 00:00: 00 Yes [id number] 102 1{tbl} Take 1 tablet by mouth daily. [facility] docusate calcium 240 mg capsule 01-25 00:00: 00 Yes [id number] 102 240mg Take 1 capsule by mouth once daily as needed for Constipati on. [facility] ferrous sulfate 325 mg (65 mg iron) tablet 01-25 00:00: 00 Yes [id number] 102 325mg Take 1 tablet by mouth 2 (two) times daily. [facility] ibuprofen 600 mg tablet 01-25 00:00: 00 Yes [id number] 102 600mg Take 1 tablet by mouth every 6 (six) hours as needed for Pain (scale 1-3) or Pain (scale 4-6) (Pain). Take with food or milk. [facility] vitamin w/FA tablet 01-25 00:00: 00 Yes [id number] 102 1{tbl} Take 1 tablet by mouth daily. [facility] docusate calcium 240 mg capsule 01-25 00:00: 00 Yes [id number] 102 240mg Take 1 capsule by mouth once daily as needed for Constipati on. [facility] ferrous sulfate 325 mg (65 mg iron) tablet 01-25 00:00: 00 Yes [id number] 102 325mg Take 1 tablet by mouth 2 (two) times daily. [facility] ibuprofen 600 mg tablet 01-25 00:00: 00 Yes [id number] 102 600mg Take 1 tablet by mouth every 6 (six) hours as needed for Pain (scale 1-3) or Pain (scale 4-6) (Pain). Take with food or milk. [facility] vitamin w/FA tablet 01-25 00:00: 00 Yes [id number] 102 1{tbl} Take 1 tablet by mouth daily. [facility] docusate calcium 240 mg capsule 01-25 00:00: 00 Yes [id number] 102 240mg Take 1 capsule by mouth once daily as needed for Constipati on. [facility] ferrous sulfate 325 mg (65 mg iron) tablet 01-25 00:00: 00 Yes [id number] 102 325mg Take 1 tablet by mouth 2 (two) times daily. [facility] ibuprofen 600 mg tablet 01-25 00:00: 00 Yes [id number] 102 600mg Take 1 tablet by mouth every 6 (six) hours as needed for Pain (scale 1-3) or Pain (scale 4-6) (Pain). Take with food or milk. [facility] ferrous sulfate 325 mg (65 mg iron) tablet 01-24 00:00: 00 Yes [id number] 325mg Take 1 tablet by mouth 2 (two) times daily. [facility] ascorbic acid, vitamin C, 500 mg tablet 01-24 00:00: 00 Yes [id number] 500mg Take 1 tablet by mouth 3 (three) times daily. [facility] ferrous sulfate 325 mg (65 mg iron) tablet 01-24 00:00: 00 Yes [id number] 325mg Take 1 tablet by mouth 2 (two) times daily. [facility] ascorbic acid, vitamin C, 500 mg tablet 01-24 00:00: 00 Yes [id number] 500mg Take 1 tablet by mouth 3 (three) times daily. [facility] ferrous sulfate 325 mg (65 mg iron) tablet 01-24 00:00: 00 Yes [id number] 325mg Take 1 tablet by mouth 2 (two) times daily. [facility] ascorbic acid, vitamin C, 500 mg tablet 01-24 00:00: 00 Yes [id number] 500mg Take 1 tablet by mouth 3 (three) times daily. [facility] vit 33-iron-fol ic-dha (SELECT-OB + DHA) 29 mg iron-1 mg -250 mg combo pack 09-06 00:00: 00 Yes [id number] 1{packe t} Take 1 Packet by mouth daily. [facility] vit 33-iron-fol ic-dha (SELECT-OB + DHA) 29 mg iron-1 mg -250 mg combo pack 09-06 00:00: 00 Yes [id number] 1{packe t} Take 1 Packet by mouth daily. [facility] vit 33-iron-fol ic-dha (SELECT-OB + DHA) 29 mg iron-1 mg -250 mg combo pack 09-06 00:00: 00 Yes [id number] 1{packe t} Take 1 Packet by mouth daily. [facility] Vital Signs Vital Name Observation Time Observation Value Comments S chandan Systolic blood pressure 2022-03-17 19:54:00 125 mm[Hg] [facility] Diastolic blood pressure 2022-03-17 19:54:00 91 mm[Hg] [facility] Heart rate 2022-03-17 19:54:00 87 /min [facility] Body temperature 2022-03-17 19:54:00 36.06 Sona [facility] Respiratory rate 2022-03-17 19:54:00 18 /min [facility] Body height 2022-03-17 19:54:00 157.5 cm [facility] Body weight 2022-03-17 19:54:00 73.511 kg [facility] BMI 2022-03-17 19:54:00 29.64 kg/m2 [facility] Procedures Procedure Date / Time Performed Performing Clinicia n Source DISCLOSURE AND CONSENT, MEDICAL AND SURGICAL PROCEDURES 2022-03-17 05:01:00 Doctor Unassigned, Brimson [facility] Encounters Start Date/Time End Date/Time Encounter Type Admission Type Attending [facility] Care Facility Care Department Encounter ID Source 2023-04-01 11:22:58 2023-04-01 11:22:58 Outpatient S[facility] S[facility] [id number] Jude Mcqueen 2022-03-17 14:30:00 2022-03-17 15:00:00 Office Visit Aram Hutchinson [facility] [employer]LOOR WORKER [facility] 1..840.114 350.1.13.10 4.2.7.2.686 [id number] [facility] 2022-03-17 14:30:00 2022-03-17 14:30:00 Outpatient R ARAM HUTCHINSON [facility] [id number] [facility] 2022-03-17 14:30:00 2022-03-17 14:30:00 Outpatient ARAM TRACY [facility] [id number] [facility] 2022-03-17 00:00:00 2022-03-17 00:00:00 Orders Only Doctor Unassigned, Brimson [facility] ..840.114 350.1.13.10 4.2.7.2.686 [id number] [facility] 2022-03-12 10:15:00 2022-03-12 12:03:26 Outpatient ARAM TRACY [facility] [id number] [facility] 2022-03-12 10:15:00 2022-03-12 12:03:26 Office Visit Aram Hutchinson [facility] P[employer] FLOOR WORKER [facility] 1.2.840.114 350.1.13.10 4.2.7.2.686 [id number] [facility] 2022-03-12 10:15:00 2022-03-12 12:03:26 Outpatient R ARAM HUTCHINSON [facility] [id number] [facility] 2022-02-28 09:00:00 2022-02-28 09:00:00 Outpatient R ARAM HUTCHINSON [facility] [id number] [facility] 2019-03-15 00:00:00 2019-03-15 00:00:00 Orders Only Doctor Unassigned, Brimson [facility] 1.2.840.114 350.1.13.10 4.2.7.2.686 [id number] [facility] 2019-03-15 00:00:00 2019-03-15 00:00:00 Orders Only Doctor Unassigned, Brimson [facility] 1.2.840.114 350.1.13.10 4.2.7.2.686 [id number] 2019-03-07 10:21:34 2019-03-07 11:25:12 Office Visit Jacqueline Chandra [facility] P[employer] FLOOR WORKER [facility] CHILD [facility] 1.2.840.114 350.1.13.10 4.2.7.2.686 [id number] [facility] 2019-03-07 10:21:34 2019-03-07 11:25:12 Office Visit Jacqueline Chandra [facility] P[employer] FLOOR WORKER [facility] 1.2.840.114 350.1.13.10 4.2.7.2.686 [id number] 2019-03-07 00:00:00 2019-03-07 00:00:00 Orders Only Doctor Unassigned, Brimson [facility] 1.2.840.114 350.1.13.10 4.2.7.2.686 [id number] [facility] 2019-03-07 00:00:00 2019-03-07 00:00:00 Orders Only Doctor Unassigned, Brimson [facility] 1.2.840.114 350.1.13.10 4.2.7.2.686 [id number] 2019-02-14 10:21:07 2019-02-22 14:31:12 Routine Visit Jacqueline Chandra [facility] P[employer]ING FLOOR WORKER [facility] 1.2.840.114 350.1.13.10 4.2.7.2.686 [id number] [facility] 2019-02-15 00:00:00 2019-02-15 00:00:00 Patient Secure Jacqueline Chandra [facility] 1.2.840.114 350.1.13.10 4.2.7.2.686 [id number] [facility] 2019-02-15 00:00:00 2019-02-15 00:00:00 Patient Secure [facility] 1.2.840.114 350.1.13.10 4.2.7.2.686 [id number] [facility] Results Test Description Test Time Test Comments Results Result Co mments Source CULTURE, URINE 2023-04-04 12:57:09 SPECIMEN NUMBER: [id number] CULTURE, URINE SPECIMEN NUMBER: [id number] SPECIMEN COMMENT: URINE SOURCE: URINE REPORT STATUS: FINAL FINAL REPORT: 04/04/2023 >100,000 CFU/ML UROGENITAL RAHEEM PRESENT NO COMMON PATHOGENS PRELIMINARY URINE CULTURE: 04/03/2023 50-100,000 CFU/ML GRAM POSITIVE RAHEEM UNLESS OTHERWISE INDICATED, ALL TESTING PERFORMED AT [facility] [address] [place] [id number] SILVER CHASER: RAMONITA VALENTIN M.D. CLIA NUMBER [id number] [place] [id number]
[2023-10-08 17:48] LABS: SARS-CoV-2 Antigen CONTROL BLUE LINE VIS/BG OK; SARS-CoV-2 Antigen Rapid Res Negative (Negative)
--- NOTE | 2023-10-08 19:09 | ER ---
Nurse's Notes [facility] Name: Caroline Valentin Age: 23 yrs Sex: Female : 2000 Arrival Date: 10/08/2023 Time: 17:05 Bed 10 Private MD: Diagnosis: Acute upper respiratory infection, unspecified;Acute serous otitis media, left ear;Otalgia, left ear;UTI/ Urinary tract infection, site not specified Presentation: 10/07 17:16 Chief complaint: Patient states: "I have really bad left ear pain x 1 day and cough, mb9 congestion, body aches for the past week.". Coronavirus screen: Vaccine status: Patient reports receiving the 2nd dose of the covid vaccine. Ebola Screen: No symptoms or risks identified at this time. Initial Sepsis Screen: Does the patient meet any 2 criteria? No. Patient's initial sepsis screen is negative. Does the patient have a suspected source of infection? No. Patient's initial sepsis screen is negative. Risk Assessment: Do you want to hurt yourself or someone else? Patient reports no desire to harm self or others. Onset of symptoms was October 08, 2023. 17:16 Method Of Arrival: Ambulatory mb9 17:16 Acuity: SHAWANDA 4 mb9 Triage Assessment: 17:17 General: Appears uncomfortable, Behavior is calm, cooperative. Pain: Complains of pain mb9 in entire body and left ear. EENT: Reports pain in left ear. EENT: Reports nasal congestion. Neuro: Stallings Agitation-Sedation Scale (RASS): 0 - Alert and Calm Level of Consciousness is awake, alert, obeys commands, Oriented to person, place, time, situation, Appropriate for age. Cardiovascular: Patient's skin is warm and dry. Respiratory: Reports cough that is. GI: No signs and/or symptoms were reported involving the gastrointestinal system. : No signs and/or symptoms were reported regarding the genitourinary system. Derm: Skin is pink, warm \\T\\ dry. Musculoskeletal: Range of motion: intact in all extremities. Historical: - Allergies: 17:15 NKA; mb9 - Home Meds: 17:15 None [Active]; mb9 - PMHx: 17:15 None; mb9 - PSHx: 17:15 None; mb9 - Immunization history:: Adult Immunizations up to date. - Social history:: Smoking status: Patient denies any tobacco usage or history of. Screenin:18 [facility] ED Fall Risk Assessment (Adult) History of falling in the last 3 months, mb9 including since admission No falls in past 3 months (0 pts) Confusion or Disorientation No (0 pts) Intoxicated or Sedated No (0 pts) Impaired Gait No (0 pts) Mobility Assist Device Used No (0 pt) Altered Elimination No (0 pt) Score/Fall Risk Level 0 - 2 = Low Risk Oriented to surroundings, Maintained a safe environment, Educated pt \\T\\ family on fall prevention, incl call for assistance when getting out of bed. Abuse screen: Denies threats or abuse. Nutritional screening: No deficits noted. Tuberculosis screening: No symptoms or risk factors identified. Assessment: 19:26 General: Appears in no apparent distress. Behavior is calm, cooperative. Pain: kd3 Complains of pain in left ear. Neuro: Level of Consciousness is awake, alert, obeys commands, Oriented to person, place, time, situation. Cardiovascular: Patient's skin is warm and dry. Respiratory: Airway is patent Trachea midline Respiratory effort is even, unlabored, Respiratory pattern is regular, symmetrical. 19:31 General: Pt denies need for fentanyl for ear pain. . kd3 20:01 General: Pt changed her mind and requesting fentanyl . kd3 20:08 General: Pt placed on continuous monitoring for fentanyl administration. . kd3 Vital Signs: 17:16 BP 131 / 99; Pulse 85; Resp 18; Temp 98; Pulse Ox 100% on R/A; Weight 68.04 kg; Height mb9 5 ft. 2 in. ; Pain 10/10; 19:26 BP 128 / 88; Pulse 78; Resp 19; Pulse Ox 99% on R/A; kd3 20:08 BP 110 / 79; Pulse 88; Resp 16; Pulse Ox 100% on R/A; kd3 17:16 Body Mass Index 27.44 (68.04 kg, 157.48 cm) mb9 17:16 Pain Scale: Adult mb9 ED Course: 17:08 Patient arrived in ED. im 17:15 Arm band placed on. mb9 17:16 Triage completed. mb9 17:17 Call light in reach. Client placed on continuous cardiac and pulse oximetry monitoring. mb9 NIBP monitoring applied. 17:25 SARS RAPID Sent. mb9 17:25 Flu Sent. mb9 17:25 COVID swab sent to lab. Flu and/or RSV swab sent to lab. mb9 17:37 Gray Saha MD is Attending Physician. [facility] 19:07 Inserted saline lock: 20 gauge in right antecubital area, using aseptic technique. mb9 19:08 Christiana Hinojosa MD is Referral Physician. [facility] 19:10 Brooke Bravo, DONTRELL is Primary Nurse. kd3 19:27 No provider procedures requiring assistance completed. kd3 20:37 Provided Education on: infection . kd3 20:37 IV discontinued, intact, bleeding controlled, No redness/swelling at site. Pressure kd3 dressing applied. Administered Medications: 19:25 Drug: Viscous Lidocaine Mucous Membrane Liquid (4 %) 3 ml Mucous Membrane once; to kd3 bedside, TO LEFT EAR CANAL Route: Mucous Membrane; 19:25 Not Given (Patient Refused): fentanyl (pf)50 mcg IVP once kd3 19:25 Drug: Ondansetron IVP 4 mg IVP once; over 2 minutes Route: IVP; Site: right antecubital;kd3 19:25 Drug: Amoxicillin-Clavulanate PO 875 mg PO once Route: PO; kd3 19:25 Drug: Decadron - Dexamethasone IVP 10 mg IVP once Route: IVP; Site: right antecubital; kd3 19:26 Drug: NS 0.9% IV 1000 ml IV at 1 bolus Per protocol; 1000 mL bolus Route: IV; Rate: 1 kd3 bolus; Site: right antecubital; 19:26 Drug: Rocephin IV 2 grams IV at per protocol once; Given slow IV push per pharmarcy kd3 instructions Route: IV; Rate: per protocol; Site: right antecubital; 19:26 Drug: Ketorolac IVP 30 mg IVP once; IF UPT NEG Route: IVP; Site: right antecubital; kd3 20:08 Drug: fentaNYL (PF) IVP 50 mcg IVP once Route: IVP; Site: right antecubital; kd3 Medication: 19:27 VIS not applicable for this client. kd3 Outcome: 19:09 Discharge ordered by . [facility] 20:37 Discharged to home ambulatory, kd3 20:37 Condition: stable 20:37 Discharge instructions given to patient, family, Instructed on discharge instructions, follow up and referral plans. medication usage, Demonstrated understanding of instructions, follow-up care, medications, Prescriptions given X 5 20:38 Patient left the ED. kd3 Signatures: Gray Saha MD MD cha Doucette, Kyli RN RN kd3 Joyce Esqueda RN RN mb9 Cristina Hector
--- NOTE | 2023-10-08 19:09 | EDPHYS ---
Physician Documentation [facility] Name: Caroline Valentin Age: 23 yrs Sex: Female : 2000 Arrival Date: 10/08/2023 Time: 17:05 Bed 10 Private MD: ED Physician Gray Saha HPI: 10/07 19:00 This 23 yrs old Female presents to ER via Ambulatory with complaints of Ear scarlett Pain, Flu Symptoms. 19:00 The patient presents with pain, tenderness. The complaints affect the left ear. Onset: scarlett The symptoms/episode began/occurred 2 day(s) ago. Modifying factors: The symptoms are alleviated by nothing, the symptoms are aggravated by nothing, pulling on ears, touching. Associated signs and symptoms: Pertinent positives: cough, rhinorrhea, sinus trouble, lightheadedness. Severity of symptoms: At their worst the symptoms were moderate in the emergency department the symptoms are unchanged. The patient has not experienced similar symptoms in the past. Historical: - Allergies: 17:15 NKA; mb9 - Home Meds: 17:15 None [Active]; mb9 - PMHx: 17:15 None; mb9 - PSHx: 17:15 None; mb9 - Immunization history:: Adult Immunizations up to date. - Social history:: Smoking status: Patient denies any tobacco usage or history of. ROS: 19:01 Constitutional: Negative for fever, chills, and weight loss, Eyes: Negative for injury, scarlett pain, redness, and discharge, Neck: Negative for injury, pain, and swelling, Cardiovascular: Negative for chest pain, palpitations, and edema, Respiratory: Negative for shortness of breath, cough, wheezing, and pleuritic chest pain, Abdomen/GI: Negative for abdominal pain, nausea, vomiting, diarrhea, and constipation, Back: Negative for injury and pain, : Negative for injury, bleeding, discharge, and swelling, MS/Extremity: Negative for injury and deformity, Skin: Negative for injury, rash, and discoloration, Neuro: Negative for headache, weakness, numbness, tingling, and seizure, Psych: Negative for depression, anxiety, suicide ideation, homicidal ideation, and hallucinations, Allergy/Immunology: Negative for hives, rash, and allergies, Endocrine: Negative for neck swelling, polydipsia, polyuria, polyphagia, and marked weight changes, Hematologic/Lymphatic: Negative for swollen nodes, abnormal bleeding, and unusual bruising, 19:01 ENT: Positive for drainage from ear(s), ear pain, pulling at ears, rhinorrhea, sinus congestion, sinus pain, sore throat, Exam: 19:01 Constitutional: This is a well developed, well nourished patient who is awake, alert, scarlett and in no acute distress. Head/Face: Normocephalic, atraumatic. Eyes: Pupils equal round and reactive to light, extra-ocular motions intact. Lids and lashes normal. Conjunctiva and sclera are non-icteric and not injected. Cornea within normal limits. Periorbital areas with no swelling, redness, or edema. Neck: Trachea midline, no thyromegaly or masses palpated, and no cervical lymphadenopathy. Supple, full range of motion without nuchal rigidity, or vertebral point tenderness. No Meningismus. Chest/axilla: Normal chest wall appearance and motion. Nontender with no deformity. No lesions are appreciated. Cardiovascular: Regular rate and rhythm with a normal S1 and S2. No gallops, murmurs, or rubs. Normal PMI, no JVD. No pulse deficits. Respiratory: Lungs have equal breath sounds bilaterally, clear to auscultation and percussion. No rales, rhonchi or wheezes noted. No increased work of breathing, no retractions or nasal flaring. Abdomen/GI: Soft, non-tender, with normal bowel sounds. No distension or tympany. No guarding or rebound. No evidence of tenderness throughout. Back: No spinal tenderness. No costovertebral tenderness. Full range of motion. Skin: Warm, dry with normal turgor. Normal color with no rashes, no lesions, and no evidence of cellulitis. MS/ Extremity: Pulses equal, no cyanosis. Neurovascular intact. Full, normal range of motion. Neuro: Awake and alert, GCS 15, oriented to person, place, time, and situation. Cranial nerves II-XII grossly intact. Motor strength 5/5 in all extremities. Sensory grossly intact. Cerebellar exam normal. Normal gait. Psych: Awake, alert, with orientation to person, place and time. Behavior, mood, and affect are within normal limits. 19:01 ENT: External ear(s): are unremarkable, no acute changes, Ear canal(s): are normal, TM's: bulging, on the left, decreased mobility, erythema, loss of bony landmarks, Nose: Nasal mucosa: edematous, Mouth: no acute changes, Lips: moist, Oral mucosa: normal, pink and intact, moist, Gums: normal with healthy appearance, Posterior pharynx: no acute changes, Airway: normal, no evidence of obstruction, Vital Signs: 17:16 BP 131 / 99; Pulse 85; Resp 18; Temp 98; Pulse Ox 100% on R/A; Weight 68.04 kg; Height mb9 5 ft. 2 in. ; Pain 10/10; 19:26 BP 128 / 88; Pulse 78; Resp 19; Pulse Ox 99% on R/A; kd3 20:08 BP 110 / 79; Pulse 88; Resp 16; Pulse Ox 100% on R/A; kd3 17:16 Body Mass Index 27.44 (68.04 kg, 157.48 cm) mb9 17:16 Pain Scale: Adult mb9 MDM: 17:37 Patient medically screened. [facility] 19:03 Differential diagnosis: otitis media, ruptured TM, acute otalgia, bronchitis, flu, URI. [facility] Antibiotic administration: The patient is discharged and will get outpatient antibiotics, Amoxicillin, Cipro. Data reviewed: vital signs, nurses notes, lab test result(s). Consideration of Admission/Observation Escalation of care including admission/observation considered. I considered the following discharge prescriptions or medication management in the emergency department Medications were administered in the Emergency Department. See MAR. Test considered but Not performed: CT: NO CT HEAD. Historians other than the Patient: Spouse/Significant Other: SPOUSE WELL INFORMED. Care significantly affected by the following chronic conditions: NO HX. Counseling: I had a detailed discussion with the patient and/or guardian regarding the historical points, exam findings, and any diagnostic results supporting the discharge/admit diagnosis, lab results, the need for outpatient follow up, for definitive care, an ENT specialist, a family practitioner. 10/07 17:19 Order name: Flu; Complete Time: 19:41 9 10/07 17:19 Order name: SARS RAPID; Complete Time: 19:41 9 10/07 18:56 Order name: Urinalysis w/ reflexes; Complete Time: 20:18 [facility] 10/07 18:56 Order name: PREGU; Complete Time: 20:18 [facility] 10/07 19:07 Order name: IV Saline Lock; Complete Time: 19:07 mb9 Administered Medications: 19:25 Drug: Viscous Lidocaine Mucous Membrane Liquid (4 %) 3 ml Mucous Membrane once; to kd3 bedside, TO LEFT EAR CANAL Route: Mucous Membrane; 19:25 Not Given (Patient Refused): fentanyl (pf)50 mcg IVP once kd3 19:25 Drug: Ondansetron IVP 4 mg IVP once; over 2 minutes Route: IVP; Site: right antecubital;kd3 19:25 Drug: Amoxicillin-Clavulanate PO 875 mg PO once Route: PO; kd3 19:25 Drug: Decadron - Dexamethasone IVP 10 mg IVP once Route: IVP; Site: right antecubital; kd3 19:26 Drug: NS 0.9% IV 1000 ml IV at 1 bolus Per protocol; 1000 mL bolus Route: IV; Rate: 1 kd3 bolus; Site: right antecubital; 19:26 Drug: Rocephin IV 2 grams IV at per protocol once; Given slow IV push per pharmarcy kd3 instructions Route: IV; Rate: per protocol; Site: right antecubital; 19:26 Drug: Ketorolac IVP 30 mg IVP once; IF UPT NEG Route: IVP; Site: right antecubital; kd3 20:08 Drug: fentaNYL (PF) IVP 50 mcg IVP once Route: IVP; Site: right antecubital; kd3 Disposition Summary: 10/08/23 19:09 Discharge Ordered Notes: Location: Home scarlett Problem: new scarlett Symptoms: have improved scarlett Condition: Stable scarlett Diagnosis - Acute upper respiratory infection, unspecified scarlett - Acute serous otitis media, left ear scarlett - Otalgia, left ear scarlett - UTI/ Urinary tract infection, site not specified scarlett Followup: scarlett - With: Private Physician - When: Tomorrow - Reason: Recheck today's complaints, Re-evaluation by your physician Followup: scarlett - With: Christiana Hinojosa MD - When: Tomorrow - Reason: Recheck today's complaints, Re-evaluation by your physician Discharge Instructions: - Discharge Summary Sheet scarlett - Otitis Media, Adult scarlett - Earache, Adult scarlett - Urinary Tract Infection, Adult scarlett - Fever, Pediatric scarlett - Cool Mist Vaporizer scarlett - Urinary Tract Infection, Adult, [id number] [facility] - Cough, Adult [facility] Forms: - Medication Reconciliation Form [facility] - Thank You Letter scarlett - Antibiotic Education scarlett - Prescription Opioid Use scarlett - Patient Portal Instructions [facility] - Leadership Thank You Letter [facility] Prescriptions: - acetaminophen-codeine 300-30 mg Oral tablet - take 2 tablet ORAL route every 6 hours as needed for pain; 20 tablet; Refills: scarlett 0, Product Selection Permitted - Augmentin 875-125 mg Oral Tablet - take 1 tablet ORAL route every 12 hours for 10 days; 20 tablet; Refills: 0, [facility] Product Selection Permitted - Keshia-D 12 Hour 60-120 mg Oral Tablet Sustained Release 12 hr - take 1 tablet ORAL route every 12 hours As needed; 20 tablet; Refills: 0, [facility] Product Selection Permitted - Diclofenac Sodium 75 mg Oral tablet, delayed release (enteric coated) - take 1 tablet ORAL route 2 times per day; 20 tablet; Refills: 0, Product [facility] Selection Permitted - Ciprodex 0.3-0.1 % Otic drops, suspension - instill 4 drops OTIC route every 12 hours for 7 days , for ears ONLY; 7.5 scarlett milliliter; Refills: 0, Product Selection Permitted Signatures: Dispatcher [employer] [address] MD MD cha Doucette, Kyli RN RN kd3 Joyce Esqueda RN RN mb9
[2023-10-08 20:14] LABS: Specific Gravity 1.034 (1.005-1.030); Specific Gravity > 1.030 (1.005-1.030); Urine Bacteria <20 /HPF (<20); Urine Bilirubin NEGATIVE (Negative); Urine Blood Trace (Negative); Urine Clarity Extremely Turbid (Clear); Urine Color Yellow (Yellow); Urine Culture Reflex Order NOT NEEDED; Urine Glucose NEGATIVE (Negative); Urine Ketones 1+ (Negative); Urine Microscopic Reflex YN ORDER UMIC; Urine Mucus 4+ /HPF (None Seen); Urine Nitrite 2+ (Negative); Urine Protein TRACE (Negative); Urine Urobilinogen Normal (Normal); Urine WBC <5 /HPF (<5); Urine pH 5.5 (5.0-7.0)
[2023-10-08 21:03] VITALS: BP 110/79; TEMP 98; O2SAT 100
== END ==
LOC: ER 17:05
DX: J06.9 Acute upper respiratory infection, unspecified (principal); H65.02 Acute serous otitis media, left ear; N39.0 Urinary tract infection, site not specified; Z11.52 Encounter for screening for COVID-19
CPT/HCPCS: 36415; 81001; 81025; 87804; 87811; 96374; 96375; 99284; J0696; J1100; J2405; J3010; J7030